=== PATIENT | female | born 1950 | race Caucasian/White ===

== ENCOUNTER 2019-12-14 10:17 | Outpatient (CLI) | payer MEDICARE, SELFPAY ==
--- NOTE | 2019-12-14 10:52 | XR_ITS ---
WS: [id number] DEXA (DUAL ENERGY X-RAY ABSORPTIOMETRY) Bone mineral density was performed using a [employer] machine. HISTORY: POST MENOPAUSAL COMPARISON: 05/08/2017 Lumbar spine BMD (L1-L4): 1.399 g/cm2 T score: 1.8 Z score: 3.3 Total hip BMD: Left: 1.053 g/cm2. T score: 0.4 Z score: 1.6 Right: 1.059 g/cm2. T score: 0.4 Z score: 1.7 10 year probability of a major osteoporotic fracture is 16%. Compared to the prior study from 05/08/2017. Lumbar spine bone mineral density has decrease by 0.6%. Bilateral hips bone mineral density has increased by 0.1%. XR/XR DEXA axial skeleton* [id number] IMPRESSION: Normal bone mineral density based upon the WHO classification for females. No i nterval change since the prior study.
== END 2019-12-14 10:18 | disposition home or self-care (01) ==
LOC: RADWPI 10:23
PROVIDERS: Family Provider Family Medicine; PCP Family Medicine; Visit Provider Family Medicine
DX: Z78.0 Asymptomatic menopausal state (principal)
CPT/HCPCS: 77080

== ENCOUNTER → 2019-12-17 13:15 | Outpatient (BNVA) | payer MEDICARE, SELFPAY | PROVIDERS: Family Provider Family Medicine; PCP Family Medicine; Visit Provider Internal Medicine Rheumatology | DX: M06.041 Rheumatoid arthritis without rheumatoid factor, right hand (principal); M06.042 Rheumatoid arthritis without rheumatoid factor, left hand; Z79.899 Other long term (current) drug therapy; M15.9 Polyosteoarthritis, unspecified; Z78.9 Other specified health status | CPT/HCPCS: 99214 ==

== ENCOUNTER → 2020-01-11 10:26 | Outpatient (BNVA) | payer MEDICARE, SELFPAY | PROVIDERS: Family Provider Family Medicine; PCP Family Medicine; Referring Provider Dermatology; Visit Provider Dermatology | DX: L71.9 Rosacea, unspecified (principal); L82.1 Other seborrheic keratosis; L94.0 Localized scleroderma [morphea]; L90.0 Lichen sclerosus et atrophicus; Z12.83 Encounter for screening for malignant neoplasm of skin; Z85.828 Personal history of other malignant neoplasm of skin | CPT/HCPCS: 99203; 99204 ==

== ENCOUNTER 2020-02-09 12:13 | Outpatient (RCR) | payer MEDICARE, SELFPAY | END 2020-02-15 23:59 | disposition home or self-care (01) | LOC: SPT 12:13 | PROVIDERS: PCP Family Medicine; Referring Provider Family Medicine; Visit Provider Family Medicine | DX: H81.13 Benign paroxysmal vertigo, bilateral (principal) | CPT/HCPCS: 95992; 97162 ==

== ENCOUNTER → 2020-04-19 13:59 | Outpatient (BNVA) | payer MEDICARE, SELFPAY | PROVIDERS: Family Provider Family Medicine; PCP Family Medicine; Visit Provider Internal Medicine Rheumatology | DX: M06.041 Rheumatoid arthritis without rheumatoid factor, right hand (principal); M06.042 Rheumatoid arthritis without rheumatoid factor, left hand; Z79.899 Other long term (current) drug therapy; M15.9 Polyosteoarthritis, unspecified; B02.30 Zoster ocular disease, unspecified; E06.3 Autoimmune thyroiditis | CPT/HCPCS: 99214 ==

== ENCOUNTER 2020-07-13 11:30 | Outpatient (CLI) | payer MEDICARE, SELFPAY ==
--- NOTE | 2020-07-13 11:32 | MM_ITS ---
WS: [id number] BILATERAL DIGITAL SCREENING MAMMOGRAPHY WITH CAD CLINICAL INFORMATION: SCREENING HISTORY: Screening mammogram. No current complaints. COMPARISON: TECHNIQUE: Bilateral CC and MLO views. FINDINGS: The breasts are composed of heterogeneous fibroglandular density tissue, which can limit the detectio n of small underlying mass lesions. No suspicious mass, asymmetry, calcifications, or architectural d istortion. No evidence of malignancy. MM/[place] [id number] IMPRESSION: BI-RADS: 1-Negative FOLLOW UP: 1 Year Follow-up Recommend return to annual screening mammography.
== END 2020-07-13 11:31 | disposition home or self-care (01) ==
LOC: RADSHAW 11:31
PROVIDERS: PCP Family Medicine; Visit Provider Family Medicine
DX: Z12.31 Encounter for screening mammogram for malignant neoplasm of breast (principal)
CPT/HCPCS: 77067

== ENCOUNTER → 2020-09-07 14:06 | Outpatient (BNVA) | payer MEDICARE, SELFPAY | PROVIDERS: PCP Family Medicine; Visit Provider Internal Medicine Rheumatology | DX: M06.041 Rheumatoid arthritis without rheumatoid factor, right hand (principal); M06.042 Rheumatoid arthritis without rheumatoid factor, left hand; Z79.899 Other long term (current) drug therapy; M15.4 Erosive (osteo)arthritis; E06.3 Autoimmune thyroiditis | CPT/HCPCS: 99214 ==

== ENCOUNTER → 2021-01-05 13:33 | Outpatient (BNVA) | payer MEDICARE, SELFPAY | PROVIDERS: PCP Family Medicine; Visit Provider Internal Medicine Rheumatology | DX: M06.041 Rheumatoid arthritis without rheumatoid factor, right hand (principal); M06.042 Rheumatoid arthritis without rheumatoid factor, left hand; Z79.899 Other long term (current) drug therapy; M15.9 Polyosteoarthritis, unspecified; E06.3 Autoimmune thyroiditis; Z86.19 Personal history of other infectious and parasitic diseases; Z71.89 Other specified counseling | CPT/HCPCS: 99214 ==

== ENCOUNTER 2021-04-05 12:37 | Outpatient (RCR) | payer MEDICARE, SELFPAY | END 2021-04-16 23:59 | disposition home or self-care (01) | LOC: SPT 12:37 | PROVIDERS: PCP Family Medicine; Visit Provider Family Medicine | DX: R42 Dizziness and giddiness (principal) | CPT/HCPCS: 95992; 97162 ==

== ENCOUNTER 2021-04-17 06:00 | Outpatient (RCR) | payer MEDICARE, SELFPAY | END 2021-05-16 23:59 | disposition home or self-care (01) | LOC: SPT 06:00 | PROVIDERS: PCP Family Medicine; Visit Provider Family Medicine | DX: H81.13 Benign paroxysmal vertigo, bilateral (principal) | CPT/HCPCS: 97112 ==

== ENCOUNTER 2021-05-17 06:00 | Outpatient (RCR) | payer MEDICARE, SELFPAY | END 2021-05-17 23:59 | disposition home or self-care (01) | LOC: SPT 06:00 | PROVIDERS: PCP Family Medicine; Visit Provider Family Medicine | DX: H81.13 Benign paroxysmal vertigo, bilateral (principal) | CPT/HCPCS: 97112 ==

== ENCOUNTER → 2021-05-30 11:03 | Outpatient (BNVA) | payer MEDICARE, SELFPAY | PROVIDERS: PCP Family Medicine; Visit Provider Internal Medicine Rheumatology | DX: M06.041 Rheumatoid arthritis without rheumatoid factor, right hand (principal); M06.042 Rheumatoid arthritis without rheumatoid factor, left hand; M15.4 Erosive (osteo)arthritis; E06.3 Autoimmune thyroiditis; L94.0 Localized scleroderma [morphea]; Z86.19 Personal history of other infectious and parasitic diseases; Z71.89 Other specified counseling | CPT/HCPCS: 99214 ==

== ENCOUNTER 2021-08-29 12:27 | Outpatient (CLI) | payer MEDICARE, SELFPAY ==
--- NOTE | 2021-08-29 12:33 | MM_ITS ---
WS: [id number] Bilateral screening 3D tomosynthesis digital mammogram, 08/29/2021 Clinical Data: SCREENING Comparison: 07/13/2020, 04/02/2019, 02/05/2018, 01/23/2017, 12/28/2015, 12/06/2015, 06/14/2014, 06/11/2013, 06/09/2012, 07/22/2008. Findings: The breast parenchymal pattern shows heterogeneous density No spiculated masses or clustered calcific ations are seen. There are no secondary signs of carcinoma. MM/[place] [id number] Impression: 1. Negative bilateral mammogram unchanged. 2. Recommend annual screening mammograms. BIRADS: 1-Negative FOLLOW UP: 1 Year Follow-up The CAD calibration checker was used.
== END 2021-08-29 12:28 | disposition home or self-care (01) ==
PROVIDERS: PCP Family Medicine; Visit Provider Family Medicine
DX: Z12.31 Encounter for screening mammogram for malignant neoplasm of breast (principal)
CPT/HCPCS: 77063; 77067

== ENCOUNTER → 2021-09-26 14:28 | Outpatient (BNVA) | payer MEDICARE, SELFPAY | PROVIDERS: PCP Family Medicine; Visit Provider Internal Medicine Rheumatology | DX: M06.041 Rheumatoid arthritis without rheumatoid factor, right hand (principal); M06.042 Rheumatoid arthritis without rheumatoid factor, left hand; M15.4 Erosive (osteo)arthritis; Z79.899 Other long term (current) drug therapy; E06.3 Autoimmune thyroiditis; Z86.19 Personal history of other infectious and parasitic diseases; Z71.89 Other specified counseling | CPT/HCPCS: 99214 ==

== ENCOUNTER → 2022-03-19 12:50 | Outpatient (BNVA) | payer MEDICARE, SELFPAY | PROVIDERS: PCP Family Medicine; Visit Provider Internal Medicine Rheumatology | DX: M06.041 Rheumatoid arthritis without rheumatoid factor, right hand (principal); M06.042 Rheumatoid arthritis without rheumatoid factor, left hand; Z79.899 Other long term (current) drug therapy; M15.4 Erosive (osteo)arthritis; Z71.89 Other specified counseling; E06.3 Autoimmune thyroiditis; L94.0 Localized scleroderma [morphea]; Z86.19 Personal history of other infectious and parasitic diseases | CPT/HCPCS: 99214 ==

== ENCOUNTER 2022-04-19 12:31 | Outpatient (CLI) | payer MEDICARE, SELFPAY ==
--- NOTE | 2022-04-19 12:41 | XR_ITS ---
WS: [id number] Bone mineral density performed on a [employer], 04/19/2022 Clinical data: SCREENING Comparison study: DEXA scan, 12/14/2019 Findings: The first 4 lumbar vertebral bodies demonstrated the bone mineral density of 1.526 g/cm2 for a young adult T score of 2.9. Measurement of the left hip reveals a bone mineral density of 1.031 g/cm2 with a young adult T score of 0.2. Measurement of the right hip reveals the bone mineral density of 1.052 g/cm2 for young adult T score of 0.4. The bone mineral density of the lumbar spine shows an increase of 9.1%. The bone mineral density of t he hips shows a decrease of -1.3%. XR/XR DEXA axial skeleton* [id number] Impression: 1. Increasing bone mineral density of the lumbar spine. 2. Slight decrease in bone mineral density of the hips.
== END 2022-04-19 12:32 | disposition home or self-care (01) ==
LOC: RAD 12:33
PROVIDERS: PCP Family Medicine; Visit Provider Obstetrics & Gynecology
DX: Z78.0 Asymptomatic menopausal state (principal); M85.88 Other specified disorders of bone density and structure, other site
CPT/HCPCS: 77080

== ENCOUNTER → 2022-07-30 10:59 | Outpatient (BNVA) | payer MEDICARE, SELFPAY | PROVIDERS: PCP Family Medicine; Visit Provider Internal Medicine Rheumatology | DX: M06.041 Rheumatoid arthritis without rheumatoid factor, right hand (principal); M06.042 Rheumatoid arthritis without rheumatoid factor, left hand; M15.4 Erosive (osteo)arthritis; E06.3 Autoimmune thyroiditis; E03.9 Hypothyroidism, unspecified; L94.0 Localized scleroderma [morphea]; N39.0 Urinary tract infection, site not specified | CPT/HCPCS: 99214 ==

== ENCOUNTER 2022-12-12 14:01 | Emergency (ER) | payer MEDICARE, SELFPAY ==
--- NOTE | 2022-12-12 14:03 | XR_ITS ---
WS: [id number] Exam: XR chest 1V portable [id number] Date/Time of Exam: 12/12/2022 2:16 PM Reason For Exam: cp Comparison 05/20/2018. The lungs are fully expanded and clear. Normal cardiomediastinal silhouette. 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 XR/XR chest 1V portable [id number] IMPRESSION: 1. No acute cardiopulmonary process.
== END 2022-12-12 14:15 | disposition home or self-care (01) ==
LOC: ER 14:12
PROVIDERS: Emergency Provider Family Medicine; PCP Family Medicine
DX: M06.042 Rheumatoid arthritis without rheumatoid factor, left hand (principal); M06.041 Rheumatoid arthritis without rheumatoid factor, right hand; M15.4 Erosive (osteo)arthritis; I48.0 Paroxysmal atrial fibrillation; Z79.899 Other long term (current) drug therapy; Z79.82 Long term (current) use of aspirin; Z79.890 Hormone replacement therapy; Z79.52 Long term (current) use of systemic steroids; R07.9 Chest pain, unspecified
CPT/HCPCS: 71045; 99214; 99285

== ENCOUNTER → 2023-01-01 13:51 | Outpatient (BNVA) | payer MEDICARE, SELFPAY | PROVIDERS: PCP Family Medicine; Visit Provider Dermatology | DX: L72.0 Epidermal cyst (principal); L71.8 Other rosacea; Z85.828 Personal history of other malignant neoplasm of skin; L57.0 Actinic keratosis; L81.4 Other melanin hyperpigmentation; L82.1 Other seborrheic keratosis; D22.72 Melanocytic nevi of left lower limb, including hip; L90.0 Lichen sclerosus et atrophicus; L84 Corns and callosities | CPT/HCPCS: 17000; 17003; 99214 ==

== ENCOUNTER → 2023-03-06 14:14 | Outpatient (BNVA) | payer MEDICARE, SELFPAY | PROVIDERS: PCP Family Medicine; Visit Provider Internal Medicine Rheumatology | DX: M06.041 Rheumatoid arthritis without rheumatoid factor, right hand (principal); M06.042 Rheumatoid arthritis without rheumatoid factor, left hand; M15.4 Erosive (osteo)arthritis; Z71.89 Other specified counseling; Z79.899 Other long term (current) drug therapy; R00.0 Tachycardia, unspecified | CPT/HCPCS: 99214 ==

== ENCOUNTER 2023-03-27 13:06 | Outpatient (CLI) | payer MEDICARE, SELFPAY ==
--- NOTE | 2023-03-27 13:21 | MM_ITS ---
WS: [id number] Bilateral screening 3D tomosynthesis digital mammogram, 03/27/2023 Clinical Data: SCREENING Comparison: 08/29/2021, 07/13/2020, 07/13/2020, 04/02/2019, 02/05/2018, 01/23/2017, 12/06/2015, 06/14/2014, 06/11/2013, 07/10/2011, 10/19/2008, 08/26/2007, 08/26/2007. Findings: The breast parenchymal pattern shows fibroglandular tissue. No spiculated masses or clustered calcifi cations are seen. There are no secondary signs of carcinoma. Monitor leads are on the chest wall. Impression: 1. Negative bilateral mammogram unchanged. 2. Recommend annual screening mammograms. MM/[place] [id number] BIRADS: 1-Negative FOLLOW UP: 1 Year Follow-up The CAD bill checker was used.
== END 2023-03-27 13:07 | disposition home or self-care (01) ==
PROVIDERS: PCP Family Medicine; Visit Provider Family Medicine
DX: Z12.31 Encounter for screening mammogram for malignant neoplasm of breast (principal)
CPT/HCPCS: 77063; 77067

== ENCOUNTER → 2023-07-03 14:20 | Outpatient (BNVA) | payer MEDICARE, SELFPAY | PROVIDERS: PCP Family Medicine; Visit Provider Internal Medicine Rheumatology | DX: M06.041 Rheumatoid arthritis without rheumatoid factor, right hand (principal); M06.042 Rheumatoid arthritis without rheumatoid factor, left hand; M15.4 Erosive (osteo)arthritis; Z71.89 Other specified counseling; Z79.899 Other long term (current) drug therapy; R00.0 Tachycardia, unspecified | CPT/HCPCS: 99214 ==

== ENCOUNTER → 2023-10-14 14:22 | Outpatient (BNVA) | payer MEDICARE, SELFPAY | PROVIDERS: PCP Family Medicine; Visit Provider Internal Medicine Rheumatology | DX: M06.041 Rheumatoid arthritis without rheumatoid factor, right hand (principal); M06.042 Rheumatoid arthritis without rheumatoid factor, left hand; Z79.899 Other long term (current) drug therapy; M15.4 Erosive (osteo)arthritis; Z71.89 Other specified counseling; R00.0 Tachycardia, unspecified | CPT/HCPCS: 99214 ==

== ENCOUNTER → 2024-01-16 08:48 | Outpatient (BNVA) | payer MEDICARE, SELFPAY | PROVIDERS: PCP Family Medicine; Visit Provider Nurse Practitioner Family | DX: L90.0 Lichen sclerosus et atrophicus (principal); L71.8 Other rosacea; L81.4 Other melanin hyperpigmentation; L82.1 Other seborrheic keratosis; D22.72 Melanocytic nevi of left lower limb, including hip; L84 Corns and callosities; L94.0 Localized scleroderma [morphea]; Z85.828 Personal history of other malignant neoplasm of skin | CPT/HCPCS: 99214 ==

== ENCOUNTER → 2024-02-24 14:10 | Outpatient (BNVA) | payer MEDICARE, SELFPAY | PROVIDERS: PCP Family Medicine; Visit Provider Internal Medicine Rheumatology | DX: M06.041 Rheumatoid arthritis without rheumatoid factor, right hand (principal); M06.042 Rheumatoid arthritis without rheumatoid factor, left hand; M15.4 Erosive (osteo)arthritis; Z71.89 Other specified counseling; Z79.899 Other long term (current) drug therapy | CPT/HCPCS: 99214 ==

== ENCOUNTER → 2024-06-22 13:30 | Outpatient (BNVA) | payer MEDICARE, SELFPAY | PROVIDERS: PCP Family Medicine; Visit Provider Internal Medicine Rheumatology | DX: M06.041 Rheumatoid arthritis without rheumatoid factor, right hand (principal); M06.042 Rheumatoid arthritis without rheumatoid factor, left hand; Z79.899 Other long term (current) drug therapy; M15.4 Erosive (osteo)arthritis; Z71.89 Other specified counseling | CPT/HCPCS: 99214 ==

== ENCOUNTER → 2024-09-28 14:49 | Outpatient (BNVA) | payer MEDICARE, SELFPAY | PROVIDERS: PCP Family Medicine; Visit Provider Internal Medicine Rheumatology | DX: M06.041 Rheumatoid arthritis without rheumatoid factor, right hand (principal); M06.042 Rheumatoid arthritis without rheumatoid factor, left hand; M15.4 Erosive (osteo)arthritis; Z71.89 Other specified counseling; Z79.899 Other long term (current) drug therapy | CPT/HCPCS: 99214 ==

== ENCOUNTER 2024-12-02 08:15 | Outpatient (CLI) | payer MEDICARE, SELFPAY ==
--- NOTE | 2024-12-02 08:16 | MM_ITS ---
WS: [id number] BILATERAL SCREENING DIGITAL TOMOSYNTHESIS MAMMOGRAM WITH CAD HISTORY: SCREENING COMPARISON: 03/27/2023, 08/29/2021 and 07/13/2020 Bilateral CC and MLO views with tomosynthesis and synthetic mammography submitted. Computer aided detection analyzed. Breast composition: The breasts are heterogeneously dense, which may obscure small masses. No suspicious masses, microcalcifications or architectural distortion. Asymmetries within each breast are stable. No suspicious grouping of calcifications. MM/MM scr tomosynthesis [id number] IMPRESSION: BI-RADS: 2 - Benign FOLLOW UP: 1 Year Follow-up
== END 2024-12-02 08:16 | disposition home or self-care (01) ==
PROVIDERS: PCP Family Medicine; Visit Provider Family Medicine
DX: Z12.31 Encounter for screening mammogram for malignant neoplasm of breast (principal)
CPT/HCPCS: 77063; 77067

== ENCOUNTER → 2025-02-02 14:35 | Outpatient (BNVA) | payer MEDICARE, SELFPAY | PROVIDERS: PCP Family Medicine; Visit Provider Internal Medicine Rheumatology | DX: M06.041 Rheumatoid arthritis without rheumatoid factor, right hand (principal); M06.042 Rheumatoid arthritis without rheumatoid factor, left hand; M15.4 Erosive (osteo)arthritis; Z71.85 Encounter for immunization safety counseling; Z79.899 Other long term (current) drug therapy | CPT/HCPCS: 99214 ==

== ENCOUNTER 2025-04-18 10:22 | Observation (INO) | payer MEDICARE, SELFPAY ==
[2025-04-18] VITALS (11 sets, daily range): BP systolic 93–158; BP diastolic 58–102; PULSE 77–129; RESP 14–24; TEMP 36.8–37.4; O2SAT 92–96; BMI 25.7; BMI 25.4
--- OUTSIDE RECORDS SUMMARY | 2025-04-18 10:26 | XMS_ITS | Encounter Summary ---
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 1 [place] [address] PCP - General Family Practice 11/07/20 documented as of this encounter
--- OUTSIDE RECORDS SUMMARY | 2025-04-18 10:26 | XMS_ITS | Encounter Summary ---
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 Social History Tobacco Use Types Packs/Day Years Used Date Smoking Tobacco: Never Assessed Comments Unknown Sex and Gender Information Value Date Recorded Sex Assigned at Not on file 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
--- OUTSIDE RECORDS SUMMARY | 2025-04-18 10:26 | XMS_ITS | Encounter Summary ---
Author Organization [facility] Address [address] [place] [address] Care Team Providers Care Technical Manager Name Role Phone Rustam Trammell MD Primary Care Provider [phone] Encounter Details Date Type Department Care Team (Latest Contact Info) Description 09/20/1998 Outpatient Historical [facility] [place] [address] [place] [address] Tera Ness MD NO ADDRESS ON FILE Circumscribe scleroderma (Primary Dx) Social History Tobacco Use Types Packs/Day Years Used Date Smoking Tobacco: Never Assessed Comments Unknown Sex and Gender Information Value Date Recorded Sex Assigned at Not on file 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
--- OUTSIDE RECORDS SUMMARY | 2025-04-18 10:26 | XMS_ITS | Encounter Summary ---
Author Organization [facility] Address [address] [place] [address] Care Team Providers Care Wellness Spa Manager Name Role Phone Rustam Trammell MD Primary Care Provider [phone] Encounter Details Date Type Department Care Team (Latest Contact Info) Description 12/08/2002 Outpatient Historical [facility] [place] [address] [place] [address] Tera Ness MD NO ADDRESS ON FILE Gynecologic examination (Primary Dx); SCREENING MAL NEOP-RECTUM Social History Tobacco Use Types Packs/Day Years Used Date Smoking Tobacco: Never Assessed Comments Unknown Sex and Gender Information Value Date Recorded Sex Assigned at Not on file 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
--- OUTSIDE RECORDS SUMMARY | 2025-04-18 10:26 | XMS_ITS | Continuity of Care Document ---
Author Organization MICHELL - Renny Hernandez [facility] Amaury, LMason, [facility] ([facility]) Address [address] [place] [address] Care Team Providers Care Gas Line Servicer Name Role Phone TRAMMELLNAV JulioON Primary Care Provider [phone] TOMÁS HILL Referring Provider [phone] MARIO MAYER Referring Provider [phone] Assessment No assessment recorded. Plan of Treatment Reminders Order Date Submit Date Provider Last Modified By Organization Details Last Modified Time Details Appointments ACUTE VISIT 025 09:20AM WALK-IN Not available Not available Not available Lab None recorde d. Referral None recorde d. Procedures None recorde d. Surgeries None recorde d. Imaging None recorde d. Medication Orders None recorde d. Patient TargetsNo targets recorded. Patient Instructions Encounter Date Encounter Id Patient Instructions Last Modified By Organization Details Last Modified Time 04/18/2025 [id number] As she describes it feels like it is going to explode when she bends forward- I am going to send her to ER for further eval [email or web address] Not available 04/18/2025 11:18:14 Reason for Referral None Reported. Results Created Date Observation Date Name Description Value Unit Range Abnormal Flag Note LastModifiedBy Organization Detail LastModifiedTime 03/24/2003/24/2025 CBC WBC 6.2 x10 4.0-10 .5 Not Available [facility] [address], [place], [address], 03/24/2025 14:19:16 03/24/2003/24/2025 CBC RBC 4.49 x10 3.50-5 .50 Not Available [facility] [address] [facility] 1, [place], [address], 03/24/2025 14:19:16 03/24/2003/24/2025 CBC HGB 14.1 g/dL 12.0-1 6.0 Not Available [facility] [address] [facility] [address] [facility], [place], [address], 03/24/2025 14:19:16 03/24/2003/24/2025 CBC HCT 43.6 % 37.0-4 7.0 Not Available [facility] [address] [facility] [address] 1, [place], [address], 03/24/2025 14:19:16 03/24/2003/24/2025 CBC MCV 97.0 fL 80.0-9 9.9 Not Available [facility] [address] [facility] [address] 1, [place], [address], 03/24/2025 14:19:16 03/24/2003/24/2025 CBC MCH 31.4 pg 27.0-3 2.0 Not Available [facility] [address] [facility] [address], [place], [address], 03/24/2025 14:19:16 03/24/2003/24/2025 CBC MCHC 32.4 g/dL 32.0-3 6.0 Not Available [facility] [address] [facility] 1, [place], [address], 03/24/2025 14:19:16 03/24/2003/24/2025 CBC RDW 14.9 % 11.5-1 4.5 high Not Available [facility] [address] [facility] 1, [place], [address], 03/24/2025 14:19:16 03/24/2003/24/2025 CBC plt 277.1 x10 140.0- 451.0 Not Available [facility] [address] [facility] 1, [place], [address], 03/24/2025 14:19:16 03/24/20 25 03/24/2025 CBC lymphocytes % 27.8 % 20.0-5 0.0 Not Available [facility] [address] [facility], [place], [address], 03/24/2025 14:19:16 03/24/2003/24/2025 CBC granulcytes % 59.3 % 30.0-7 0.0 Not Available [facility] [address] [facility] 1, [place], [address], 03/24/2025 14:19:16 03/24/2003/24/2025 CBC monocytes % 7.8 % 2.0-16 .0 Not Available [facility] [address] [facility] 1, [place], [address], 03/24/2025 14:19:16 03/24/2003/24/2025 CBC granulcytes# 3.7 x10 Not Arabella ilable [facility] [address] [facility] 1, [place], [address], 03/24/2025 14:19:16 03/24/2003/24/2025 CBC lymphocytes # 1.7 x10 Not Available [facility] [address] [facility] 1, [place], [address], 03/24/2025 14:19:16 03/24/2003/24/2025 CBC monocytes # 0.5 x10 Not Avai lable [facility] [address] [facility] 1, [place], [address], 03/24/2025 14:19:16 03/24/20 25 03/24/2025 LIVER PANEL (FEMA LE) total protein 7.6 g/dL 6.0-8. 5 Not Available [facility] [address] [facility] 1, [place], [address], 03/24/2025 14:20:34 03/24/20 25 03/24/2025 LIVER PANEL (FEMA LE) total bilirubin 0.9 mg/dL 0.2-1. 3 Not Available [facility] [address] [facility], [place], [address], 03/24/2025 14:20:34 03/24/20 25 03/24/2025 LIVER PANEL (FEMA LE) conj. bilirubin (direct) 0.00 mg/dL 0.00-0 .40 Not Available [facility] [address] [facility], [place], [address], 03/24/2025 14:20:34 03/24/20 25 03/24/2025 LIVER PANEL (FEMA LE) albumin 4.4 g/dL 3.5-5. 5 Not Available [facility] [address] [facility] [address] [facility] [facility], [place], [address], 03/24/2025 14:20:34 03/24/20 25 03/24/2025 LIVER PANEL (FEMA LE) AST (SGOT) 64.0 U/L 0.0-46 .0 high Not Available [facility] [address] [facility] [address] [facility] 1, [place], [address], 03/24/2025 14:20:34 03/24/20 25 03/24/2025 LIVER PANEL (FEMA LE) altv (SGPT) 71.0 U/L 13.0-6 9.0 abnormal Not Available [facility] [address] [facility], [place], [address], 03/24/2025 14:20:34 03/24/20 25 03/24/2025 LIVER PANEL (FEMA LE) ALP phos 77.0 U/L 30.0-1 40.0 normal Not Available [facility] [address] [facility] [address], [address], 03/24/2025 14:20:34 03/24/20 25 03/25/2025 C-RENU CTIVE PROTE IN C-reactive protein <3.0 mg/L <8.0 normal Not Available [facility] [address] [place], [address], 03/25/2025 07:45:50 03/24/2003/24/2025 ESR (eryt hrocy te sedim entat ion rate) , blood SedRate 21 Not Available [facility] ([facility]) [address] [place], [address], 03/24/2025 13:08:57 03/24/20 25 03/24/2025 creat inine , blood creatinine 0.81 mg/dL 0.4-1. 5 normal Not Available [facility] ([facility]) [address] [place], [address], 03/24/2025 13:08:54 03/25/2003/25/2025 XR, chest , 2 view No observ ation record ed. [facility] ([facility]) [address] [place], [address], 03/25/2025 13:01:27 03/26/2003/25/2025 imagi ng/di agnos tic resul t No observ ation record ed. [facility] [address] [place], [address], 03/29/2025 15:17:06 Result Notes None recorded. Problems Name Problem SNOMED Code Status Onset Date Resolution Date Notes Provider Name and Address Organization Details Recorded Time Hyperlip idemia 51593379 Completed 201506/20/2015 Hyperlip idemia - Status is Inactive ; 06/20/19 16 1:22PM by Albertina Espinoza LPN, Annotati on/Adden dum; Promoted ; acuity set as *; Not Available [facility] 3 03:16:00 Hyperten sive disorder 84916822 Completed 201506/20/2015 Hyperten argelia - Status is Inactive ; 06/20/19 16 1:22PM by Albertina Espinoza LPN, Annotati on/Adden dum; Promoted ; acuity set as *; Not Available [facility] 3 03:16:03 Atrial fibrilla tion 31095207 Completed 202103/01/2022 Atrial Fibrilla tion - Status is Inactive ; 03/01/20 2:36PM by Inga Trammell PA-C, Annotati on/Adden dum; Promoted ; acuity set as *; ATRIAL FIBRILLA TION - Status is Inactive ; Recorded 03/01/20 22 2:36PM by Inga Trammell PA-C, Annotati on/Adden dum; Promoted ; acuity set as *; Not Available [facility] 3 03:16:03 Tobacco dependen ce syndrome 87995724 Completed 202103/01/2022 Tobacco use - Status is Inactive ; Recorded 03/01/20 22 2:58PM by Inga Trammell PA-C, Annotati on/Adden dum; Promoted ; acuity set as *; Not Available [facility] 3 03:16:03 Morphea 664405539 Active 2022 MORPHEA; Recorded 07/13/19 23 12:08PM by Albertina Espinoza LPN, Office Visit; Promoted ; acuity set as *; Not Available [facility] 3 03:16:02 Goiter 6431542 Active 2022 goiter; goiter at age 9 or 10 began thyroid medicati on age 14; ALBERTINA abdullahi [facility] 5 12:10:06 Hypothyr oidism 25736201 Active 2022 ALBERTINA abdullahi [facility] 3 10:44:41 Lichen sclerosu s 149702776 Active 2022 ALBERTINA ALEXIS bradly [facility] 3 10:44:50 Rheumato id arthriti s 28807631 Active 2022 ALBERTINA ALEXIS bradly [facility] 3 10:44:58 Supraven tricular tachycar akshat 4088980 Active 2022 ALBERTINA abdullahi [facility] 10:45:05 History of herpes zoster 18814242768 9108 Active 2022 Sim Trammell MD [address] [place] [address], [address] [facility] [place] 11:33:34 Paroxysm al atrial fibrilla tion 440378480 Active 2022 ALBERTINA abdullahi [facility] 5 12:10:23 Chronic kidney disease stage 3A 997275199 Active 2024 ALBERTINA abdullahi [facility] 5 12:42:15 Problem Notes None recorded. Procedures Surgical History Date Name Laterality Status Provider Name and Address Organization Details Recorded Time repair of femoral hernia completed ALBERTINA ALEXIS [facility] 11/29/2022 10:48:22 Carpal tunnel surgery completed ALBERTINA ESPINOZA [facility] 11/29/2022 10:48:33 Imaging Results None recorded. Procedure Notes None recorded. Medical Equipment None Reported. Allergies No known drug allergies Medications Name Sig Start Date Stop Date Status Note LastModified by Organization Details LastModified Time amoxicill in 500 mg capsule 11/03 completed Not Available Not Available Not Available prednison e 10 mg tablet TAKE 1 TABLET BY MOUTH EVERY DAY FOR 5-7 DAYS NEEDED FOR JOINT PAIN FLARE active Not Available Not Available No t Available doxycycli ne hyclate 100 mg capsule TAKE 1 CAPSULE BY MOUTH TWICE DAILY FOR 7 DAYS 05/11 completed Not Available Not Available Not Available sulfasala zine 500 mg tablet TAKE 1 TABLET BY MOUTH EVERY DAY for 7 days THEN stay ON ONE tablet TWICE DAILY. take with food (meal/sn ack) 08/18 completed Not Available Not Available Not Available prednison e 20 mg tablet TAKE 2 TABLETS BY MOUTH EVERY DAY FOR FIVE DAYS 05/11 completed Not Available Not Available Not Available clobetaso l 0.05 % topical cream every other day 11/03 completed Alfredo; Recorded 03/01/20 22 7:24AM by Leila Yen LPN, Office Visit; Mail Order Quantity : 3 Tube; Mail Order Days: 90 Days; Refill Quantity : 0; Not Available Not Available Not Available Noritate 1 % topical cream APPLY TOPICALL Y EVERY DAY 03/25 completed Not Available Not Available Not Available valacyclo vir 500 mg tablet two times daily 08/18 completed Not Available Not Available Not Available triamcino lone acetonide 0.1 % topical cream two times daily prn 03/25 completed Not Available Not Available Not Available prednisol one acetate 1 % eye drops,edilson pension 11/29 completed Not Available Not Available Not Available methotrex ate sodium 2.5 mg tablet TAKE 8 TABLETS ON THE SAME DAY ONCE A WEEK. active Not Available Not Available No t Available meclizine 25 mg tablet TAKE 1 TABLET BY MOUTH THREE TIMES DAILY FOR 7 DAYS 06/02 completed Not Available Not Available Not Available tacrolimu s 0.1 % topical ointment AAA twice weekly 2020 active Not Available Not Available Not Avai lable levothyro xine 150 mcg tablet TAKE 1 TABLET BY MOUTH EVERY DAY active Not Available Not Available No t Available flecainid e 50 mg tablet TAKE 1 TABLET BY MOUTH THREE TIMES DAILY active Not Available Not Available No t Available omeprazol e 20 mg capsule,d elayed release take 1 capsule BY MOUTH 30-60 MINUTES BEFORE BREAKFAS T AND ONE CAPSULE 30-60 MINUTES BEFORE DINNER active Not Available Not Available No t Available folic acid 1 mg tablet TAKE 2 TABLETS BY MOUTH EVERY DAY active Not Available Not Available No t Available mupirocin 2 % topical ointment APPLY TO THE AFFECTED AREA(S) topicall y TWICE DAILY UNTIL HEALED 03/25 completed Not Available Not Available Not Available metoprolo l succinate ER 25 mg tablet,ex tended release 24 hr take 1/2 tablet BY MOUTH TWICE DAILY active Not Available Not Available No t Available azelastin e 137 mcg (0.1 %) nasal spray USE 1 SPRAY IN EACH NOSTRIL TWICE DAILY 08/18 completed Not Available Not Available Not Available hydroxych loroquine 200 mg tablet 03/25 completed Not Available Not Available Not Available estradiol 0.01% (0.1 mg/gram) vaginal cream APPLY SMALL AMOUNT VAGINALL Y TWICE WEEKLY active Not Available Not Available No t Available levofloxa lori 750 mg tablet TAKE 1 TABLET BY MOUTH EVERY DAY 07/23 completed Not Available Not Available Not Available fluticaso ne propionat e 50 mcg/actua tion nasal spray,edilson pension USE 1 SPRAY IN EACH NOSTRIL TWICE DAILY FOR 30 DAYS 08/18 completed Not Available Not Available Not Available metoclopr amide 10 mg tablet 04/30 completed Not Available Not Available Not Available amoxicill in 875 mg-potass ium clavulana te 125 mg tablet Take 1 tablet every 12 hours by oral route for 7 days. 03/20 completed Not Available Not Available Not Available Restasis 0.05 % eye drops in a dropperet te 04/30 completed Not Available Not Available Not Available metoprolo l tartrate 25 mg tablet two times daily 11/03 completed Not Available Not Available Not Available Antacid 200 mg (as calcium carbonate 500 mg) chewable tablet CHEW ONE TABLET BY MOUTH THREE TIMES DAILY WITH MEALS active Not Available Not Available No t Available estradiol twice weekly 04/29 completed 0; Recorded 07/13/19 23 12:09PM by Albertina Espinoza LPN, Office Visit; Not Available Not Available Not Available folic acid daily 04/30 completed 0; Recorded 07/13/19 23 12:09PM by Albertina Espinoza LPN, Office Visit; Not Available Not Available Not Available methotrex ate weekly 04/[address] Dalton; 0; Recorded 07/13/19 12:09PM by Albertina Espinoza LPN, Office Visit; Not Available Not Available Not Available Noritate daily 10/01 completed Recorded 03/01/20 7:24AM by Leila Yen LPN, Office Visit; Refill Quantity : 30; Gram; Not Available Not Available Not Available flecainid e two times daily 04/30 completed 0; Recorded 07/13/19 12:09PM by Albertina Espinoza LPN, Office Visit; Not Available Not Available Not Available Vitamin D 1 daily active Not Available Not Av ailable Not Available [facility] Levothyro xine Sodium daily 04/29 completed 436; Recorded 07/05/19 2:53PM by Albertina Espinoza LPN (Authori seven through Sim Trammell MD), Annotati on/Adden dum; Mail Order Quantity : 75 Tablet; Refill Quantity : 0; Not Available Not Available Not Available Vitamin B12 1 daily active Not Available Not Available Not Available peg 3350-elec trolytes 236 gram-22.7 4 gram-6.74 gram-5.86 gram solution 04/30 completed Not Available Not Available Not Available Restasis MultiDose 0.05 % eye drops 04/30 completed Not Available Not Available Not Available Vitals Date Recorded Body height Body mass index (BMI) Body weight Heart rate Oxygen saturation Oxygen saturation in Arterial blood by Pulse oximetry Respiratory rate Body temperature Systolic And Diastolic Provider Name and Address Organization Details Last Updated DateTime 5 166.37 cm 26.1 kg/m2 08702.1 9 g 84 /min 97 % 97 % 18 /min 98 [degF] 128/86 mm[Hg] STEPHANIA DEGROOT [facility] 5 10:37:39 Social History Question Answer Notes LastModified by Organizat ion Details LastModified Time Tobacco Smoking Status Never Smoker ALBERTINA abdullahi [facility] 11/29/2022 10:47:51 What Was The Date Of Your Most Recent Tobacco Screening? 04/18/2025 [email or web address] Information not available 04/18/2025 Sex: Unknown Functional Status Question Answer Note LastModified by Organizat ion Details LastModified Time Do you use any illicit or recreational drugs? No [email or web address] Information not available 11/29/2022 Do you or have you ever used any other forms of tobacco or nicotine? No [email or web address] Information not available 04/30/2023 What is your level of alcohol consumption? None [email or web address] Information not available 11/29/2022 Do you or have you ever used any nicotine-free cigarettes, vape, or chewing tobacco? No [email or web address] Information not available 08/18/2024 Mental Status None recorded. Family History Relationship Description Onset Age of this Age Resolved Age Notes LastModified by Organization Details LastModified Time Father Apical hypertrophic cardiomyopat hy [email or web address] Not available 11/29 10:46:44 Mother Malignant neoplasm of colon [email or web address] Not available 11/29 10:46:53 Brother Autoimmune thyroiditis [email or web address] Not available 10:47:14 Brother Malignant neoplasm of colon [email or web address] Not available 11/29 10:49:54 Sister Autoimmune thyroiditis [email or web address] Not available 10:47:14 Medical History No medical history recorded. Gynecological HistoryNo gynecological history recorded. Obstetrics History GPAL:G 0 P 0 0 0 0 Immunizations Vaccine Type Date Status Note Provider Nam e and Address Organization Details Recorded Time Influenza, recombinant, quadrivalent, PF 0 completed ALBERTINA abdullahi [facility] 11/29/2022 10:45:32 Influenza, high-dose, quadrivalent, PF 2 completed ALBERTINA abdullahi [facility] 11/29/2022 10:45:32 COVID-19, mRNA, LNP-S, PF, 100 mcg/0.5mL dose or 50 mcg/0.25mL dose 1 completed ALBERTINA abdullahi [facility] 11/29/2022 10:45:32 COVID-19, mRNA, LNP-S, PF, 100 mcg/0.5mL dose or 50 mcg/0.25mL dose 1 completed ALBERTINA abdullahi, [facility] 11/29/2022 10:45:32 COVID-19, mRNA, LNP-S, PF, 100 mcg/0.5mL dose or 50 mcg/0.25mL dose 2 completed ALBERTINA abdullahi, [facility] 11/29/2022 10:45:32 COVID-19, mRNA, LNP-S, bivalent, PF, 50 mcg/0.5 mL or 25mcg/0.25 mL dose 2 completed ALBERTINA abdullahi, [facility] 11/29/2022 10:45:32 Tdap 7 completed ALBERTINA abdullahi, [facility] 11/29/2022 10:45:32 Pneumococcal conjugate PCV 13 0 completed ALBERTINA abdullahi, [facility] 11/29/2022 10:45:32 zoster recombinant 3 completed ALBERTINA abdullahi, [facility] 11/29/2022 14:01:35 Influenza, split virus, trivalent, preservative 8 completed Not Available [facility] 07/23/2023 14:09:00 zoster recombinant 3 completed Sim Trammell MD [address] [place] [address], [address], [facility] 03/20/2023 10:21:03 Past Encounters Encounter ID Performer Location Encounter Start Date Encounter Closed Date Diagnosis/Indication Diagnosis SNOMED-CT Code Diagnosis ICD10 Code Diagnosis IMO Codes Diagnosis Note [id number] Sim Trammell MD [facility] ([facility]) [address] [place] [address] 03/24/2025 13:05:16 03/25/2025 09:34:12 Long-term current use of drug therapy 381662197 Z79.863 0581973 [id number] Sim Trammell MD [facility] ([facility]) [address] [place] [address] 03/25/2025 12:28:41 03/25/2025 13:01:48 Chronic kidney disease stage 3A 434183133 N18.31 86852721 added for historical accuracy not addressed today but is an active problem. Persistent cough 3796224 02 R05.3 307292 resume your allergy meds. has now had these sx's start early fall for 3 straight years. f/u if fever wheezing or symptoms worsening. [id number] DIANELYS AMOS APRN [facility] ([facility]) [address] [place] [address] 04/18/2025 10:22:36 04/18/2025 11:18:26 Neck pain 58419440 M54.2 06421 neck pressure Health Concerns Section Related Observation LastModified by Organization Detai ls LastModified Time None Recorded Concern Status LastModified by Organization Details LastModified Time None Recorded Payers Encounter Date Sequence Insurance Name Policy Number Policy Adam Covered Member ID Adam Member ID Guarantor Name 04/18/2025 1 [employer] (MEDICARE REPLACEMENT/ ADVANTAGE - PPO) Colleen Longo [id number] Colleen Longo Notes Date Note Type Note Provider Name and Address Organization Details Recorded Time 04/18/2025 text/html walk-inPatient stated that yesterday around 4pm she started having pressure in her anterior neck, denies injury. Pressure is increased when she bends forward. Pain in her ears DIANELYS AMOS APRN [address] [place], [address], [facility], Joanne 04/18/2025 11:18:24 OBGyn Episode No OBEpisode recorded.
--- OUTSIDE RECORDS SUMMARY | 2025-04-18 10:26 | XMS_ITS | Encounter Summary ---
Author Organization [facility] Address [address] [place] [address] Care Team Providers Care Receptionist Secretary Name Role Phone Rustam Trammell MD Primary Care Provider [phone] Encounter Details Date Type Department Care Team (Late st Contact Info) Description 12/08/2002 Outpatient Historical [facility] [place] [address] [place] [address] Tera Ness MD NO ADDRESS ON FILE Social History Tobacco Use Types Packs/Day Years Used Date Smoking Tobacco: Never Assessed Comments Unknown Sex and Gender Information Value Date Recorded Sex Assigned at Not on file 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
--- OUTSIDE RECORDS SUMMARY | 2025-04-18 10:26 | XMS_ITS | Encounter Summary ---
Author Organization [facility] Address [address] [place] [address] Care Team Providers Care Power Generation Engineer Name Role Phone Rustam Trammell MD Primary Care Provider [phone] Encounter Details Date Type Department Care Team (Latest Contact Info) Description 01/13/2002 Outpatient Historical [facility] [place] [address] [place] [address] Tera Ness MD NO ADDRESS ON FILE Gynecologic examination (Primary Dx); Circumscribe scleroderma; FEMALE CLIMACTERIC STATE Social History Tobacco Use Types Packs/Day Years Used Date Smoking Tobacco: Never Assessed Comments Unknown Sex and Gender Information Value Date Recorded Sex Assigned at Not on file 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 Gender Identity Not on file Sexual Orientation Not on file documented as of this encounter Plan of Treatment Not on file documented as of this encounter Visit Diagnoses Diagnosis Gynecologic examination- Primary Gynecological examination Circumscribe scleroderma Circumscribed scleroderma Symptomatic menopausal or female climacteric states documented in this encounter Care Teams Power Generation Engineer Relationship Specialty Start Date End Date Rustam Trammell MD [address] [facility] 1 [place] [phone] PCP - General Family Practice 11/07/20 documented as of this encounter
--- OUTSIDE RECORDS SUMMARY | 2025-04-18 10:26 | XMS_ITS | Encounter Summary ---
Author Organization [facility] Address [address] [place] [address] Care Team Providers Care Workforce Advisor Name Role Phone Rustam Trammell MD Primary Care Provider [phone] Encounter Details Date Type Department Care Team (Latest Contact Info) Description 03/23/2004 Outpatient Historical [facility] E COMMERCE DIRECTOR 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
--- OUTSIDE RECORDS SUMMARY | 2025-04-18 10:26 | XMS_ITS | Encounter Summary ---
Author Organization [facility] Address [address] [place] [address] Care Team Providers Care Sand Cutting Machine Operator Name Role Phone Rustam Trammell MD Primary Care Provider [phone] Encounter Details Date Type Department Care Team (Latest Contact Info) Description 10/05/1999 Outpatient Historical [facility] O[facility] [place] [address] [place] [address] Tera Ness MD NO ADDRESS ON FILE Gynecologic examination (Primary Dx); Vaginitis and vulvovaginitis, unspecified Social History Tobacco Use Types Packs/Day Years Used Date Smoking Tobacco: Never Assessed Comments Unknown Sex and Gender Information Value Date Recorded Sex Assigned at Not on file 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
--- OUTSIDE RECORDS SUMMARY | 2025-04-18 10:26 | XMS_ITS | Encounter Summary ---
Author Organization [facility] Address [address] [place] [address] Care Team Providers Care Training Technician Name Role Phone Rustam Trammell MD Primary Care Provider [phone] Encounter Details Date Type Department Care Team (Latest Contact Info) Description 2000 Outpatient Historical [facility] OBSANDOVALN-Head [place] [address] [place] [address] Tera Ness MD NO ADDRESS ON FILE Vaginitis and vulvovaginitis, unspecified (Primary Dx) Social History Tobacco Use Types Packs/Day Years Used Date Smoking Tobacco: Never Assessed Comments Unknown Sex and Gender Information Value Date Recorded Sex Assigned at Not on file Legal Sex Female 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
--- OUTSIDE RECORDS SUMMARY | 2025-04-18 10:26 | XMS_ITS | Encounter Summary ---
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
--- OUTSIDE RECORDS SUMMARY | 2025-04-18 10:26 | XMS_ITS | Encounter Summary ---
Author Organization [facility] Address [address] [place] [address] Care Team Providers Care Headliner Installer Name Role Phone Rustam Trammell MD Primary Care Provider [phone] Encounter Details Date Type Department Care Team (Latest Contact Info) Description 09/10/1997 Outpatient Historical [facility] [place] [address] [place] [address] Tera Ness MD NO ADDRESS ON FILE Circumscribe scleroderma (Primary Dx) Social History Tobacco Use Types Packs/Day Years Used Date Smoking Tobacco: Never Assessed Comments Unknown Sex and Gender Information Value Date Recorded Sex Assigned at Not on file Legal Sex Female 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
--- OUTSIDE RECORDS SUMMARY | 2025-04-18 10:26 | XMS_ITS | Encounter Summary ---
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
--- OUTSIDE RECORDS SUMMARY | 2025-04-18 10:26 | XMS_ITS | Clinical Summary ---
Author Organization [facility] Address [address] [place] [address] Care Team Providers Care System Admin Name Role Phone Unavailable Primary Care Provider Unavailabl e Allergies No known active allergies Medications folic acid (FOLVITE) 1 mg tablet Take 1 mg by mouth daily. TWO TABS DAILY 0 Active levothyroxine 125 mcg tablet Take 150 mcg by mouth daily in the morning. 0 Active triamcinolone acetonide (KENALOG) 0.1 % Ointment Apply to affected area 2 times daily. 0 Active hydrOXYchloroQUI NE (PLAQUENIL) 200 mg tablet Take 200 mg by mouth 2 times daily. Alternating between two tabs and one tab 0 Active methotrexate (TREXALL) 10 mg Tablet Take 10 mg by mouth every 7 days. Six 25 mg tabs once a week 0 Active valACYclovir (VALTREX) 500 mg tablet 2 Active estradioL (ESTRACE) 0.01% (0.1 mg/g) vaginal cream 2 Active metoprolol succinate (Toprol XL) 25 mg Extended Release 24 hour tabletIndication s:Supraventricul ar tachycardia Take 0.5 Tablets (12.5 mg) by mouth 2 times daily. 90 Tablet 3 5 Active flecainide (TAMBOCOR) 50 mg TabletIndication s:Supraventricul ar tachycardia,PVC (premature ventricular contraction) Take 1 Tablet (50 mg) by mouth 3 times daily. 300 Tablet 3 5 Active Active Problems No known active problems Encounters Date Type Department Care Team Description 04/07/2025 External Device Data STL ABSTRACTION Provider, Abstract 04/07/2025 External Device Data ST[facility] ABSTRACTION Provider, Abstract 03/09/2025 External Device Data [facility] ABSTRACTION Provider, Abstract 03/02/2025 External Device Data [facility] ABSTRACTION Provider, Abstract 02/26/2025 1:00 PM CDT Office Visit [facility] [address] [place] [address] Corby Lyons, GAYE Fuchs' corneal dystrophy of both eyes (Primary Dx); Combined form of senile cataract of left eye; Dry eyes, bilateral; Hyperopia with regular astigmatism, bilateral 02/23/2025 External Device Data ST[facility] ABSTRACTION Provider, Abstract 02/09/2025 Orders Only [facility] [address] [facility] [address] [place] [address] Catia Hutton NP Mixed hyperlipidemia (Primary Dx); Supraventricular tachycardia; PVC (premature ventricular contraction); Syncope, unspecified syncope type; Sinus bradycardia 02/05/2025 Abstract [facility] [address] [address] Piero De MD 02/05/2025 Telephone [facility] [address] [address] Piero De MD Referral Request 02/04/2025 Telephone [facility] [address] [address] Piero De MD Referral Request 02/03/2025 Telephone [facility] [address] [facility] [address] [place] [address] Brooke Simpson, JÚNIOR-RECREATIONAL COUNSELOR 02/12/25 Calvin Appt Needs Rescheduled; Returning call from Last 3 Months Social History Tobacco Use Types Packs/Day Years Used Date Smoking Tobacco: Never Smokeless Tobacco: Never Tobacco Cessation:Counseling Given: Not Answered Comments Unknown Sex and Gender Information Value Date Recorded Sex Assigned at Not on file Legal Sex Female 12:56 AM RESEARCH STUDY ASSISTANT Gender Identity Not on file Sexual Orientation Not on file Last Filed Vital Signs Vital Sign Reading Time Taken Comments Blood Pressure 108/68 08/19/2023 12:57 PM RESEARCH STUDY ASSISTANT Pulse 94 08/19/2023 12:57 PM RESEARCH STUDY ASSISTANT Temperature - - Respiratory Rate - - Oxygen Saturation - - Inhaled Oxygen Concentration - - Weight 71.8 kg (158 lb 3.2 oz) 08/19/2023 12:57 PM RESEARCH STUDY ASSISTANT Height 167.6 cm (5' 6 ) 08/19/2023 12:57 PM RESEARCH STUDY ASSISTANT Body Mass Index 25.53 08/19/2023 12:57 PM RESEARCH STUDY ASSISTANT Plan of Treatment Upcoming Encounters Date Type Department Care Team (Late st Contact Info) Description 06/03/2025 8:30 AM RESEARCH STUDY ASSISTANT Office Visit [facility] Op[facility] [place] [address] [place] [address] Piero De MD [address] [place] [address] 08/17/2025 12:40 PM RESEARCH STUDY ASSISTANT Office Visit [facility] [address] [place] [address] Louisa Penny MD [address] [place] [address] Brooke Simpson, JÚNIOR-RECREATIONAL COUNSELOR [address] [place] [address] Health Maintenance Due Date Last Done Comments BREAST CANCER SCREENING 1991 COLORECTAL SCREENING 1996 Colorectal Cancer Screening 1996 FIT-DNA Q 3 years 1996 FIT/FOBT Q 1 year 1996 Flex Sig/CT Colonography Q 5 years 1996 RSV VACCINE (60+ or ) (1 - Risk 50-74 years 1-dose series) 2001 OSTEOPOROSIS SCREENING 2016 PNEUMOCOCCAL VACCINE 50+ YEA RS (2 of 2 - PPSV23, PCV20, or PCV21) 08/10/2020 06/15/2020 INFLUENZA VACCINE (#1) 2025 , 06/13/2020, 05/21/2018 COVID-19 Vaccine (5 - 2024-2 6 season) 2025 06/04/2022, 12/30/2021, 08/09/2020, Additional history exists DTAP/TDAP/TD VACCINES (2 - T d or Tdap) 12/03/2026 12/03/2016 ZOSTER VACCINE Completed 03/12/2023, 11/29/2022 Insurance [employer] PPO MCR RX [employer] RX Member Subscriber Plan / Payer (Ef fective 2020-Present) Name:Colleen Longo Relation to Subscriber:Self Name:Colleen Longo Payer ID:Not on file Group ID:[id number] Type:RX Medicare Part D Address: [address]
--- OUTSIDE RECORDS SUMMARY | 2025-04-18 10:26 | XMS_ITS | Clinical Summary ---
Author Organization [facility] Address [address] [place] [address] Care Team Providers Care Electromechanical Technologist Name Role Phone Rustam Trammell MD Primary Care Provider [phone] Medications triamcinolone acetonide (KENALOG) 0.1 % Ointment Apply to affected area 2 times daily. Active hydroxychloroqu ine (PLAQUENIL) 200 mg tablet Take 200 mg by mouth 2 times daily. Alternating between two tabs and one tab Active folic acid (FOLVITE) 1 mg tablet Take 1 mg by mouth daily. TWO TABS DAILY Active levothyroxine 137 mcg tablet Take 137 mcg by mouth daily electrical manufacturing technician. Take 1 tab 6 days per week Active levothyroxine 125 mcg tablet Take 125 mcg by mouth daily electrical manufacturing technician. Take 1 tab 1 day offsetting the other doses. Active methotrexate (TREXALL) 10 mg Tablet Take 10 mg by mouth every 7 days. Six 25 mg tabs once a week Active metoprolol tartrate (LOPRESSOR) 25 mg tablet Take 1 Tablet (25 mg) by mouth 2 times daily. 180 Tablet 3 1 Active flecainide (TAMBOCOR) 50 mg Tablet Take 1 Tablet (50 mg) by mouth 3 times daily. 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 Gender Identity Not on file Sexual Orientation Not on file Last Filed Vital Signs Vital Sign Reading Time Taken Comments Blood Pressure 124/72 10/13/2020 11:20 AM CDT Pulse 53 10/13/2020 11:20 AM CDT Temperature - - Respiratory Rate - - Oxygen Saturation - - Inhaled Oxygen Concentration - - Weight 72.1 kg (159 lb) 10/13/2020 11:20 AM CDT Height 170.2 cm (5' 7 ) 10/13/2020 11:20 AM CDT Body Mass Index 24.9 10/13/2020 11:20 AM CDT Plan of Treatment Health Maintenance Due Date Last Done Comments DTAP/TDAP/TD VACCINES (1 - Tdap) 1970 PNEUMOCOCCAL VACCINE 50+ YEA RS (1 of 2 - PCV) 1970 ZOSTER VACCINE (1 of 2) 1970 BREAST CANCER SCREENING 1991 COLORECTAL SCREENING 1996 FIT-DNA Q 3 years 1996 Flex Sig/CT Colonography Q 5 years 1996 RSV VACCINE (60+ or ) (1 - Risk 50-74 years 1-dose series) 2001 Colorectal Cancer Screening 12/09/2003 FIT/FOBT Q 1 year 12/09/2003 12/08/2002, 12/23/2000 OSTEOPOROSIS SCREENING 2016 INFLUENZA VACCINE (#1) 2025 Insurance [facility] DUAL [place]PLE[place] [address] Care Teams Electromechanical Technologist Relationship Specialty Start Date End Date Rustam Trammell MD [facility] [place] [address] PCP - General Family Practice 11/07/20
--- OUTSIDE RECORDS SUMMARY | 2025-04-18 10:27 | XMS_ITS | Data Portability ---
Author Organization MICHELL [facility], [facility], [facility] Address [address] [facility] [address] [place] [address] Care Team Providers Care Special Education Aide Name Role Phone TRAMMELLNAV JulioON Primary Care Provider TOMÁS HILL Referring Provider MARIO MAYER Referring Provider Assessment No assessment recorded. Plan of Treatment Reminders Order Date Submit Date Provider Last Modified By Organization Details Last Modified Time Details Appointments ACUTE VISIT 2024 09:20A M WALK-IN Not available Not available Not available Lab CBC 2024 025 [place] [facility] [place] [facility], [address] [place] [address], [address], 03/24/2025 14:19:16 C-react tawnya protein , quantit ative, serum or plasma 2024 025 AUSTIN [facility], [address] [place] [address], [facility] [address] [place], [address], 03/25/2025 07:45:50 creatin ine, blood 2024 025 [facility] ([facility]), [address] [place], [address], 03/24/2025 14:21:11 ESR (erythr ocyte sedimen tation rate), blood 2024 025 [facility] ([facility]), [address] [place], [address], 03/24/2025 15:17:02 hepatic functio n panel, serum 2024 [facility], [address], [address], [place], [address], 03/24/2025 14:20:34 CBC - ALL LABS ORDERED BY DR Dalton/ WILL FAX YF 2024 [facility], [address], [address], [place], [address], 01/14/2025 10:13:35 ESR (erythr ocyte sedimen tation rate), blood 2024 [facility] ([facility]), [address] [place] [address], [address], 01/14/2025 11:13:23 C-react tawnya protein , quantit ative, serum or plasma 2024 025 [facility], [address] [facility], [place], [address], 01/15/2025 06:14:32 hepatic functio n panel, serum 2024 025 [facility], [address] [place], [place] [address], [address], [place], [address], 01/14/2025 11:32:50 creatin ine, blood 2024 025 [facility] ([facility]), [address] [place] [address], [address], 01/14/2025 11:33:25 Referral None recorde d. Procedures None recorde d. Surgeries None recorde d. Imaging XR, chest, 2 view 2024 [email or web address] [facility] ([facility]), [address] [facility], [place], [address], 03/25/2025 13:48:30 Medication Orders amoxici llin 875 mg-pota ssium clavula jose 125 mg tablet 2024 025 [facility], [address], [place], [address], 03/20/2025 05:01:29 Patient TargetsNo targets recorded. Patient Instructions Encounter Date Encounter Id Patient Instructions Last Modified By Organization Details Last Modified Time 04/18/2025 [id number] As she describes it feels like it is going to explode when she bends forward- I am going to send her to ER for further eval [email or web address] Not available 04/18/2025 11:18:14 Reason for Referral None Reported. Results Created Date Observation Date Name Description Value Unit Range Abnormal Flag Note LastModifiedBy Organization Detail LastModifiedTime 01/15/20 25 01/14/2025 CBC WBC 6.7 x10 4.0-10 .5 Not Available [facility] [address] [facility] 1, [place], [address], 01/14/2025 10:13:35 01/15/20 25 01/14/2025 CBC RBC 4.60 x10 3.50-5 .50 Not Available [facility] [address] [facility] 1, [place], [address], 01/14/2025 10:13:35 01/15/20 25 01/14/2025 CBC HGB 14.1 g/dL 12.0-1 6.0 Not Available [facility] [address] [facility] 1, [place], [address], 01/14/2025 10:13:35 01/15/20 25 01/14/2025 CBC HCT 43.8 % 37.0-4 7.0 Not Available [facility] [address] [facility] 1, [place], [address], 01/14/2025 10:13:35 01/15/20 25 01/14/2025 CBC MCV 95.2 fL 80.0-9 9.9 Not Available [facility] [address] [facility] 1, [place], [address], 01/14/2025 10:13:35 01/15/20 25 01/14/2025 CBC MCH 30.6 pg 27.0-3 2.0 Not Available [facility] [address] [facility] 1, [place], [address], 01/14/2025 10:13:35 01/15/20 25 01/14/2025 CBC MCHC 32.2 g/dL 32.0-3 6.0 Not Available [facility] [address] [facility], [place], [address], 01/14/2025 10:13:35 01/15/20 25 01/14/2025 CBC RDW 15.4 % 11.5-1 4.5 high Not Available [facility] [address] [facility] 1, [place], [address], 01/14/2025 10:13:35 01/15/20 25 01/14/2025 CBC plt 222.2 x10 140.0- 451.0 Not Available [facility] [address] [facility] 1, [place], [address], 01/14/2025 10:13:35 01/15/20 25 01/14/2025 CBC lymphocytes % 12.7 % 20.0-5 0.0 low Not Available [facility] [address] [facility] [address] [facility] [address] 1, [place], [address], 01/14/2025 10:13:35 01/15/20 25 01/14/2025 CBC granulcytes % 74.0 % 30.0-7 0.0 high Not Available [facility] [address] [facility] 1, [place], [address], 01/14/2025 10:13:35 01/15/20 25 01/14/2025 CBC monocytes % 7.6 % 2.0-16 .0 Not Available [facility] [address] [facility], [place], [address], 01/14/2025 10:13:35 01/15/20 25 01/14/2025 CBC granulcytes# 5.0 x10 Not Arabella ilable [facility] [address] [facility] 1, [place], [address], 01/14/2025 10:13:35 01/15/20 25 01/14/2025 CBC lymphocytes # 0.9 x10 Not Available [facility] [address] [address], [place], [address], 01/14/2025 10:13:35 01/15/20 25 01/14/2025 CBC monocytes # 0.5 x10 Not Avai lable [facility] [address] [address], [place], [address], 01/14/2025 10:13:35 01/15/20 25 01/14/2025 LIVER PANEL (FEMA LE) total protein 7.3 g/dL 6.0-8. 5 Not Available [facility] [address] [facility] [facility], [place], [address], 01/14/2025 11:32:50 01/15/20 25 01/14/2025 LIVER PANEL (FEMA LE) total bilirubin 1.3 mg/dL 0.2-1. 3 Not Available [facility] [address] [facility], [place], [address], 01/14/2025 11:32:50 01/15/20 25 01/14/2025 LIVER PANEL (FEMA LE) conj. bilirubin (direct) 0.00 mg/dL 0.00-0 .40 Not Available [facility] [address] [facility] 1, [place], [address], 01/14/2025 11:32:50 01/15/20 25 01/14/2025 LIVER PANEL (FEMA LE) albumin 4.2 g/dL 3.5-5. 5 Not Available [facility] [address] [facility], [place], [address], 01/14/2025 11:32:50 01/15/20 25 01/14/2025 LIVER PANEL (FEMA LE) AST (SGOT) 48.0 U/L 0.0-46 .0 high Not Available [facility] [address] [facility], [place], [address], 01/14/2025 11:32:50 01/15/20 25 01/14/2025 LIVER PANEL (FEMA LE) altv (SGPT) 50.0 U/L 13.0-6 9.0 normal Not Available [facility] [address] [facility], [place], [address], 01/14/2025 11:32:50 01/15/20 25 01/14/2025 LIVER PANEL (FEMA LE) ALP phos 74.0 U/L 30.0-1 40.0 normal Not Available [facility] [address] [facility], [place], [address], 01/14/2025 11:32:50 01/15/20 25 01/15/2025 C-RENU CTIVE PROTE IN C-reactive protein 5.3 mg/L <8.0 normal Not Available [facility] [address] , [place], [address], 01/15/2025 06:14:32 01/15/20 25 01/14/2025 ESR (eryt hrocy te sedim entat ion rate) , blood SedRate 19 Not Available [facility] ([facility]) [address] [place], [address], 01/14/2025 09:56:29 01/27/2001/26/2025 creat inine , blood creatinine 0.93 mg/dL 0.4-1. 5 normal Not Available [facility] ([facility]) [address] [place], [address], 01/14/2025 09:56:58 03/24/2003/24/2025 CBC WBC 6.2 x10 4.0-10 .5 Not Available [facility] [address] [facility] 1, [place], [address], 03/24/2025 14:19:16 03/24/2003/24/2025 CBC RBC 4.49 x10 3.50-5 .50 Not Available [facility] [address] [facility], [place], [address], 03/24/2025 14:19:16 03/24/20 25 03/24/2025 CBC HGB 14.1 g/dL 12.0-1 6.0 Not Available [facility] [address] [facility] 1, [place], [address], 03/24/2025 14:19:16 03/24/2003/24/2025 CBC HCT 43.6 % 37.0-4 7.0 Not Available [facility] [address] [facility] [address] [facility] 1, [place], [address], 03/24/2025 14:19:16 03/24/20 25 03/24/2025 CBC MCV 97.0 fL 80.0-9 9.9 Not Available [facility] [address] [facility] 1, [place], [address], 03/24/2025 14:19:16 03/24/2003/24/2025 CBC MCH 31.4 pg 27.0-3 2.0 Not Available [facility] [address] [facility] 1, [place], [address], 03/24/2025 14:19:16 03/24/2003/24/2025 CBC MCHC 32.4 g/dL 32.0-3 6.0 Not Available [facility] [address] [facility] 1, [place], [address], 03/24/2025 14:19:16 03/24/2003/24/2025 CBC RDW 14.9 % 11.5-1 4.5 high Not Available [facility] [address] [facility], [place], [address], 03/24/2025 14:19:16 03/24/2003/24/2025 CBC plt 277.1 x10 140.0- 451.0 Not Available [facility] [address] [facility] 1, [place], [address], 03/24/2025 14:19:16 03/24/2003/24/2025 CBC lymphocytes % 27.8 % 20.0-5 0.0 Not Available [facility] [address] [facility] 1, [place], [address], 03/24/2025 14:19:16 03/24/2003/24/2025 CBC granulcytes % 59.3 % 30.0-7 0.0 Not Available [facility] [address] [facility] 1, [place], [address], 03/24/2025 14:19:16 03/24/2003/24/2025 CBC monocytes % 7.8 % 2.0-16 .0 Not Available [facility] [address] [facility] 1, [place], [address], 03/24/2025 14:19:16 03/24/2003/24/2025 CBC granulcytes# 3.7 x10 Not Arabella ilable [facility] [address] [facility] 1, [place], [address], 03/24/2025 14:19:16 03/24/2003/24/2025 CBC lymphocytes # 1.7 x10 Not Available [facility] [address] [facility] 1, [place], [address], 03/24/2025 14:19:16 03/24/2003/24/2025 CBC monocytes # 0.5 x10 Not Avai lable [facility] [address] [facility] 1, [place], [address], 03/24/2025 14:19:16 03/24/2003/24/2025 LIVER PANEL (FEMA LE) total protein 7.6 g/dL 6.0-8. 5 Not Available [facility] [address] [facility] 1, [place], [address], 03/24/2025 14:20:34 03/24/2003/24/2025 LIVER PANEL (FEMA LE) total bilirubin 0.9 mg/dL 0.2-1. 3 Not Available [facility] [address] [facility] 1, [place], [address], 03/24/2025 14:20:34 03/24/2003/24/2025 LIVER PANEL (FEMA LE) conj. bilirubin (direct) 0.00 mg/dL 0.00-0 .40 Not Available [facility] [address] [facility] 1, [place], [address], 03/24/2025 14:20:34 03/24/20 25 03/24/2025 LIVER PANEL (FEMA LE) albumin 4.4 g/dL 3.5-5. 5 Not Available [place] [address] [facility] 1, [place], [address], 03/24/2025 14:20:34 03/24/20 25 03/24/2025 LIVER PANEL (FEMA LE) AST (SGOT) 64.0 U/L 0.0-46 .0 high Not Available [facility] 5 [facility] 1, [place], [address], 03/24/2025 14:20:34 03/24/20 25 03/24/2025 LIVER PANEL (FEMA LE) altv (SGPT) 71.0 U/L 13.0-6 9.0 abnormal Not Available [address], [place], [address], 03/24/2025 14:20:34 03/24/20 25 03/24/2025 LIVER PANEL (FEMA LE) ALP phos 77.0 U/L 30.0-1 40.0 normal Not Available [address] [address], [place], [address], 03/24/2025 14:20:34 03/24/20 25 03/25/2025 C-RENU CTIVE PROTE IN C-reactive protein <3.0 mg/L <8.0 normal Not Available [facility] [address] [place], [address], 03/25/2025 07:45:50 03/24/2003/24/2025 ESR (eryt hrocy te sedim entat ion rate) , blood SedRate 21 Not Available [facility] ([facility]) [address] [place], [address], 03/24/2025 13:08:57 03/24/2003/24/2025 creat inine , blood creatinine 0.81 mg/dL 0.4-1. 5 normal Not Available [facility] ([facility]) [address] [place], [address], 03/24/2025 13:08:54 03/25/2003/25/2025 XR, chest , 2 view No observ ation record ed. [facility] ([facility]) [address] [place], [address], 03/25/2025 13:01:27 03/26/2003/25/2025 imagi ng/di agnos tic resul t No observ ation record ed. [facility] [address] [place], [address], 03/29/2025 15:17:06 Result Notes None recorded. Problems Name Problem SNOMED Code Status Onset Date Resolution Date Notes Provider Name and Address Organization Details Recorded Time Hyperlip idemia 44916111 Completed 201506/20/2015 Hyperlip idemia - Status is Inactive ; 06/20/19 16 1:22PM by Albertina Espinoza LPN, Annotati on/Adden dum; Promoted ; acuity set as *; Not Available [facility] 3 03:16:00 Hyperten sive disorder 08606844 Completed 201506/20/2015 Hyperten argelia - Status is Inactive ; 06/20/19 16 1:22PM by Albertina Espinoza LPN, Annotati on/Adden dum; Promoted ; acuity set as *; Not Available [facility] 3 03:16:03 Atrial fibrilla tion 42129432 Completed 202103/01/2022 Atrial Fibrilla tion - Status is Inactive ; 03/01/20 2:36PM by Inga Trammell PA-C, Annotati on/Adden dum; Promoted ; acuity set as *; ATRIAL FIBRILLA TION - Status is Inactive ; Recorded 03/01/20 2:36PM by Inga Trammell PA-C, Annotati on/Adden dum; Promoted ; acuity set as *; Not Available [facility] 3 03:16:03 Tobacco dependen ce syndrome 80029239 Completed 202103/01/2022 Tobacco use - Status is Inactive ; Recorded 03/01/20 2:58PM by Inga Trammell PA-C, Annotati on/Adden dum; Promoted ; acuity set as *; Not Available [facility] 3 03:16:03 Morphea 621315267 Active 2022 MORPHEA; Recorded 07/13/19 12:08PM by Albertina Espinoza LPN, Office Visit; Promoted ; acuity set as *; Not Available [facility] 3 03:16:02 Goiter 7981291 Active 2022 goiter; goiter at age 9 or 10 began thyroid medicati on age 14; ALBERTINA abdullahi, [facility] 5 12:10:06 Hypothyr oidism 42996144 Active 2022 ALBERTINA abdullahi, [facility] 3 10:44:41 Lichen sclerosu s 824134768 Active 2022 ALBERTINA ESPINOZA null, [facility] 3 10:44:50 Rheumato id arthriti s 48068332 Active 2022 ALBERTINA ESPINOZA null, [facility] 3 10:44:58 Supraven tricular tachycar akshat 5911004 Active 2022 ALBERTINA abdullahi, [facility] 3 10:45:05 History of herpes zoster 42852735384 9108 Active 2022 Sim Trammell MD [address] [place] [address], [address] , [facility] 3 11:33:34 Paroxysm al atrial fibrilla tion 724935450 Active 2022 ALBERTINA ALEXIS abdullahi [facility], Joanne 5 12:10:23 Chronic kidney disease stage 3A 020277580 Active 2024 ALBERTINA ALEXIS abdullahi [facility], [facility] 5 12:42:15 Problem Notes None recorded. Procedures Surgical History Date Name Laterality Status Provider Name and Address Organization Details Recorded Time repair of femoral hernia completed ALBERTINA ALEXIS [facility], [facility] 11/29/2022 10:48:22 Carpal tunnel surgery completed [facility]/29/2022 10:48:33 Imaging Results None recorded. Procedure [...] topical cream APPLY TOPICALL Y EVERY DAY 10/09 /2025 completed Not Available Not Available Not Available [...] twice weekly 04/29 completed 0; Recorded 07/13/19 12:09PM by Albertina Espinoza LPN, Office Visit; Not Available Not Available Not Available folic acid daily 04/30 completed 0; Recorded 07/13/19 12:09PM by Albertina Espinoza LPN, Office Visit; Not Available Not Available Not Available methotrex ate weekly 04/[address] Dalton; 0; Recorded 07/13/19 12:09PM by Albertina Espinoza LPN, Office Visit; Not Available Not Available Not Available Noritate daily 10/01 completed Recorded 03/01/20 22 7:24AM by Leila Yen [...] 07/05/19 2:53PM by Albertina Espinoza LPN (Authori zed through Sim Trammell MD), Annotati on/Adden dum; [...] height Body mass index (BMI) Body weight Body temperature Heart rate Oxygen saturation Oxygen saturation in Arterial blood by Pulse oximetry Systolic And Diastolic Provider Name and Address Organization Details Last Updated DateTime 5 166.37 cm 25.4 kg/m2 84603.5 2 g 98 [degF] 64 /min 97 % 97 % 122/70 mm[Hg] Karen Carmona [facility] 5 17:15:50 Date Recorded Body height Body mass index (BMI) Body weight Body temperature Heart rate Oxygen saturation Oxygen saturation in Arterial blood by Pulse oximetry Systolic And Diastolic Provider Name and Address Organization Details Last Updated DateTime 5 166.37 cm 25.6 kg/m2 75887.4 1 g 97.9 [degF] 91 /min 98 % 98 % 128/68 mm[Hg] ALBERTINA ESPINOZA [facility] 5 12:35:03 Date Recorded Body height Body mass index (BMI) Body weight Heart rate Oxygen saturation Oxygen saturation in Arterial blood by Pulse oximetry Respiratory rate Body temperature Systolic And Diastolic Provider Name and Address Organization Details Last Updated DateTime 5 166.37 cm 26.1 kg/m2 55375.1 9 g 84 /min 97 % 97 % 18 /min 98 [degF] 128/86 mm[Hg] STEPHANIA DEGROOT [facility] 5 10:37:39 Social History Question Answer Notes LastModified by Organizat ion Details LastModified Time Tobacco Smoking Status Never Smoker LABERTINA ESPINOZA [facility] 11/29/2022 10:47:51 What Was The Date Of Your Most Recent Tobacco Screening? 04/18/2025 [email or web address] Information not available 04/18/2025 Sex: Unknown Functional Status Question Answer Note LastModified by Organizat ion Details LastModified Time Do you use any illicit or recreational drugs? No [email or web address] Information not available 11/29/2022 Do you or have you ever used any other forms of tobacco or nicotine? No Information not available 04/30/2023 What is your level of alcohol consumption? None [email or web address] Information not available 11/29/2022 Do you or have you ever used any nicotine-free cigarettes, vape, or chewing tobacco? No Information not available 08/18/2024 Mental Status None recorded. Family History Relationship Description Onset Age of this Age Resolved Age Notes LastModified by Organization Details LastModified Time Father Apical hypertrophic cardiomyopat hy [email or web address] Not available 11/29 10:46:44 Mother Malignant neoplasm of colon Not available 11/29 10:46:53 Brother Autoimmune thyroiditis Not available 10:47:14 Brother Malignant neoplasm of colon [id number] Not available 11/29 10:49:54 Sister Autoimmune thyroiditis [email or web address] Not available 10:47:14 Medical History No medical history recorded. Gynecological HistoryNo gynecological history recorded. Obstetrics History GPAL:G 0 P 0 0 0 0 Immunizations Vaccine Type Date Status Note Provider Nam e and Address Organization Details Recorded Time Influenza, recombinant, quadrivalent, PF 0 completed ALBERTINA abdullahi [facility] 11/29/2022 10:45:32 Influenza, high-dose, quadrivalent, PF 2 [facility] 11/29/2022 10:45:32 COVID-19, mRNA, LNP-S, PF, 100 mcg/0.5mL dose or 50 mcg/0.25mL dose 1 completed ALBERTINA abdullahi [facility] 11/29/2022 10:45:32 COVID-19, mRNA, LNP-S, PF, 100 mcg/0.5mL dose or 50 mcg/0.25mL dose 1 completed ALBERTINA abdullahi, [facility] 11/29/2022 10:45:32 COVID-19, mRNA, LNP-S, PF, 100 mcg/0.5mL dose or 50 mcg/0.25mL dose 2 completed ALBERTINA abdullahi [facility] 11/29/2022 10:45:32 COVID-19, mRNA, LNP-S, bivalent, PF, 50 mcg/0.5 mL or 25mcg/0.25 mL dose 2 completed ALBERTINA abdullahi, [facility] 11/29/2022 10:45:32 Tdap 7 completed ALBERTINA abdullahi [facility] 11/29/2022 10:45:32 Pneumococcal conjugate PCV 13 0 completed ALBERTINA abdullahi, [facility] 11/29/2022 10:45:32 zoster recombinant 3 completed ALBERTINA abdullahi, [facility] 11/29/2022 14:01:35 Influenza, split virus, trivalent, preservative 8 completed Not Available [facility] 07/23/2023 14:09:00 zoster recombinant 3 completed Sim Trammell MD [address] [place] [address], [address], [facility] 03/20/2023 10:21:03 Past Encounters Encounter ID Performer Location Encounter Start Date Encounter Closed Date Diagnosis/Indication Diagnosis SNOMED-CT Code Diagnosis ICD10 Code Diagnosis IMO Codes Diagnosis Note [id number] Sim Trammell MD [facility] ([facility]) [address] [place] [address] 10/16/2022 15:04:12 10/22/2022 10:15:42 Fall in home 91490554 Y92.009 Pain of left hand 678298 2247 54675 M79.642 [id number] Sim Trammell MD [facility] ([facility]) [address] [place] [phone] 11/29/2022 10:38:14 11/29/2022 14:36:02 Hypothyroidism 97433364 E03.9 Supraventr icular tachycardia 9630612 I47.1 Paroxysmal atrial fibrillation 337079597 I48.0 History of herpes zoster 6932181546 93532 Z86.19 [id number] Sim Trammell MD [facility] ([facility]) [address] [place] [phone] 03/12/2023 09:28:08 03/20/2023 21:37:19 Herpes zoster vaccination given 1624797987 83551 Z23 Hypothyroidism 77512700 E03.9 [id number] Jasiel Cortes MD [facility] ([facility]) [address] [place] [phone] 04/29/2023 11:44:50 04/29/2023 19:15:32 Bronchitis 92448327 J40 Patient is having persistent symptoms with recent fever. Recommend starting antibiotic s at this time. Discussed steroids but the patient would like to hold off on those for now. Write a prescripti on in case she has need of them. [id number] Sim Trammell MD [facility] ([facility]) [address] [place] [id number] 04/30/2023 08:49:05 04/30/2023 09:49:25 Bleeding from nose [id number] R04.0 we discussed supportive care with nasal saline and Vaselineav oid steroid nasal sprays and other irritantsa frin only to stop a bleed 2-4 sprays in the bleeding nostrilshu midify the home. [id number] Sim Trammell MD [facility] ([facility]) [address] [place] [address] [phone] 5 05/30/2023 11:48:26 05/30/2023 12:30:47 Acute upper respiratory infection [id number] J06.9 f/u if fever breathing worsens or sx persist. Atrial fibrillation 4943 6004 I48.91 Hypothyroidism 60432907 E03.9 [id number] Sim Trammell MD [facility] ([facility]) [address] [place] [address] [phone] 5 07/23/2023 14:08:02 07/23/2023 18:23:53 Cough 12206510 R05.9 the grand kids have gone through 20 boxes of nasal tissues since . the grand kids have also been sick fever cough congestion runny nose etc. pocket script for amoxilsupp ortive care [id number] Sim Trammell MD [facility] ([facility]) [address] [place] [address] [phone] 5 10/02/2023 14:30:38 10/02/2023 15:25:56 Vertigo [id number] R42 call tomorrow with progress [id number] Sim Trammell MD [facility] ([facility]) [address] [place] [address] [phone] 10/09/2023 13:20:13 10/10/2023 10:45:57 Rheumatoid arthritis 17218435 M06.041 Long-term drug therapy 868312242 Z79.830 [id number] Sim Trammell MD [facility] ([facility]) [address] [place] [address] [phone] 5 11/04/2023 12:56:16 11/04/2023 14:15:04 Hypothyroidism 75857581 E03.9 Rheumatoid arthritis 698 50818 M06.041 Paroxysmal atrial fibrillation 262880714 I48.0 i cannot find any interactio ns. i checked epocrates as well. i read studies showing methotrexa te may decrease risk of atrial fibrillati on. she will take her medication today and let me know how it goes. Nasal congestion 2100451 0 R09.81 [id number] Sim Trammell MD [facility] ([facility]) [address] [place] [address] [phone] 5 11/28/2023 12:30:26 11/29/2023 09:47:56 Hypothyroidism 28669627 E03.9 Rheumatoid arthritis 698 26918 M06.041 Long-term drug therapy 657741375 Z79.316 [id number] Sim Trammell MD [facility] ([facility]) [address] [place] [address] [phone] 5 12/02/2023 10:34:08 12/02/2023 13:12:04 Rheumatoid arthritis 12274039 M06.041 to refill meds used for poison michelle. Chronic hoarseness 68657 02759 105 R49.0 pepcid Hypothyroidism 41977221 E03.9 [id number] LAURENCE BENITEZ [facility] ([facility]) [address] [place] [address] [phone] 04/05/2024 16:16:36 04/05/2024 16:35:52 Acute pansinusitis 0687847 J01.40 will hold methotrexa te while on doxy this week.Discu ssed use of antibiotic . Take with food.May use Luis's nasal inserts and also apply on chest. Push oral fluids. Consider nasal saline rinses.Use tylenol/mo royal for camacho. [id number] ANDREA BAE POLICY ADVISER [facility] ([facility]) [address] [place] [address] [phone] 5 04/10/2024 16:41:04 04/10/2024 17:29:00 Cough 44058230 R05.9 Finish doxy as prescribed . Start the prednisone prescribed today. May continue using otc meds. [id number] Sim Trammell MD [facility] ([facility]) [address] [place] [address] [phone] 5 05/11/2024 12:02:18 05/11/2024 12:48:13 Contact dermatitis caused by urushiol from [place] poison michelle 885969318 L25.5 [id number] Sim Trammell MD [facility] ([facility]) [address] [place] [address] [phone] 5 05/27/2024 15:37:52 05/28/2024 12:19:56 Rheumatoid arthritis 75624105 M06.041 to refill meds used for poison michelle. Long-term drug therapy 386119102 Z79.899 Hypothyroidism 66493825 E03.9 [id number] Sim Trammell MD [facility] ([facility]) [address] [place] [address] [phone] 5 06/02/2024 13:01:24 06/02/2024 15:36:29 Contact dermatitis caused by urushiol from [facility] 633962033 L25.5 [id number] Sim Trammell MD [facility] ([facility]) [address] [place] [address] [phone] 5 08/18/2024 11:53:01 08/19/2024 18:43:10 Hematoma of face 216624330 S00.83XA [id number] Sim Trammell MD [facility] ([facility]) [address] [place] [address] [phone] 5 08/26/2024 09:23:28 08/27/2024 06:58:06 Long-term drug therapy 304406156 Z79.298 [id number] Sim Trammell MD [facility] ([facility]) [address] [place] [address] [phone] 01/14/2025 09:55:05 01/15/2025 12:38:53 Long-term current use of drug therapy 489074312 Z79.370 [id number] [id number] LAURENCE ANAYA [facility] ([facility]) [address] [place] [address] [phone] 5 03/06/2025 17:07:06 03/09/2025 13:39:10 Acute upper respiratory infection 44240137 J06.9 2456 May use otc meds like zyrtec and fluticason e nasal spray as needed for symptoms. Return to clinic with any new or worsening symptoms. [id number] Sim Trammell MD [facility] ([facility]) [address] [place] [address] [phone] 03/24/2025 13:05:16 03/25/2025 09:34:12 Long-term current use of drug therapy 940574718 Z79.136 5922733 [id number] Sim Trammell MD [facility] ([facility]) [address] [place] [address] [phone] 5 03/25/2025 12:28:41 03/25/2025 13:01:48 Chronic kidney disease stage 3A 670098215 N18.31 18556220 added for historical accuracy not addressed today but is an active problem. Persistent cough 5916920 02 R05.3 [id number] resume your allergy meds. has now had these sx's start early fall for 3 straight years. f/u if fever wheezing or symptoms worsening. [id number] DIANELYS AMOS APRN [facility] ([facility]) [address] [place] [address] 04/18/2025 10:22:36 04/18/2025 11:18:26 Neck pain 54728893 M54.2 36419 neck pressure Health Concerns Section Related Observation LastModified by Organization Detai ls LastModified Time None Recorded Concern Status LastModified by Organization Details LastModified Time None Recorded Advance Directives Directive None Recorded Payers Insurance Date Sequence Insurance Name Policy Number Policy Adam Covered Member ID Adam Member ID Guarantor Name 03/30/2025 1 [facility] (MEDICARE REPLACEMENT/A DVANTAGE - PPO) Colleen Longo [id number] Colleen Longo 03/25/2025 1 [facility] (MEDICARE REPLACEMENT/A DVANTAGE - PPO) [id number] Colleen Longo [id number] Colleen Longo Notes Date Note Type Note Provider Name and Address Organization Details Recorded Time 03/06/20 25 text/htm l ROS as noted in the HPI walk in ptPt has a cough, chest and head congestion, eye drainage and a headache for 3 weeks. Patient started using cough syrup and fluticasone nasal spray this AM to help with symptoms. Patient states that she coughs up infection once an hour. LAURENCE ANAYA [address] [place], [address], [facility], Joanne 03/06/2025 17:42:58 03/25/20 25 text/htm l CoughReported by PatientHPIFor severity, patient reportsworsening. For associated symptoms, patient reportssputum productionbut reportsno fever,no wheezing, andno shortness of breath. For quality, patient reportsproductive. For duration, patient reportsintermittentandacute (<3 weeks). For onset/timing, patient reportssudden. For context, patient reportsnon-smoker.Pt was seen at walk in clinic and was prescribed Augmentin. She reports that she has finished the ABX. her visit was roughly 19 days ago. ROS as noted in the HPI Sim Trammell MD [address] [place], [address], [facility] 03/25/2025 12:57:38 04/18/20 25 text/htm l walk-inPatient stated that yesterday around 4pm she started having pressure in her anterior neck, denies injury. Pressure is increased when she bends forward. Pain in her ears DIANELYS AMOS APRN [address] [place], [address], [facility] 04/18/2025 11:18:24 OBGyn Episode No OBEpisode recorded.
--- NOTE | 2025-04-18 10:44 | CTR_ITS ---
PROCEDURE INFORMATION: Exam: CTA Chest With Contrast Exam date and time: 04/18/2025 1:48 PM Age: 74 years old Clinical indication: Pain; Chest pressure; Additional info: Chest pressure with bending over TECHNIQUE: Imaging protocol: Computed tomographic angiography of the chest with contrast. Exam focused on the arteries. 3D rendering (Not supervised by radiologist): MIP and/or 3D reconstructed images were created by the technologist. Radiation optimization: All CT scans at this facility use at least one of these dose optimization techniques: automated exposure control; mA and/or kV adjustment per patient size (includes targeted exams where dose is matched to clinical indication); or iterative reconstruction. Contrast material: OMNIPAQUE 350; Contrast volume: 75 ml; Contrast route: INTRAVENOUS (IV); COMPARISON: CR (CHEST, ) 04/18/2025 10:48 AM RADIATION DOSE METRICS: Total DLP (mGy-cm): 266.71 FINDINGS: Pulmonary arteries: Multiple small pulmonary emboli within the 3rd order branches of the lower lobe right lung, images 4/29 and 4/30. Aorta: Fusiform aneurysm, ascending thoracic aorta measuring 4.3 cm in diameter. 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 Lungs: Mild bilateral dependent atelectasis of the lungs. Pleural spaces: Unremarkable. No pneumothorax. No pleural effusion. Heart: There is cardiomegaly. Findings concerning for mild right heart strain.The RV/LV ratio is 0.93 (Abnormal is >0.9). Coronary arteries: There are no atherosclerotic calcifications of the coronary arteries. Lymph nodes: Partially calcified subcarinal lymph node. No enlarged lymph nodes. Gallbladder and biliary ducts: There are multiple radiopaque stones in the gallbladder lumen. Stomach: There is a small gastric hiatal hernia. Bones/joints: There is diffuse idiopathic skeletal hyperostosis of the thoracic spine. Soft tissues: The remaining soft tissue is unremarkable. CT/CT angio chest PE protcl [id number] IMPRESSION: 1.Multiple small pulmonary emboli within the 3rd order branches of the lower lobe right lung. 2. Fusiform aneurysm, ascending thoracic aorta as described. 3. Findings concerning for mild right heart strain,The RV/LV ratio is 0.93 (Abnormal is >0.9).
--- NOTE | 2025-04-18 10:44 | CTR_ITS ---
PROCEDURE INFORMATION: Exam: CTA Neck With Contrast Exam date and time: 04/18/2025 1:52 PM Age: 74 years old Clinical indication: Pain; Other: Neck pressure; Additional info: Pressure with bending over TECHNIQUE: Imaging protocol: Computed tomographic angiography of the neck with contrast. Exam focused on the cervical segments of the vasculature. 3D rendering (Not supervised by radiologist): MIP and/or 3D reconstructed images were created by the technologist. Radiation optimization: All CT scans at this facility use at least one of these dose optimization techniques: automated exposure control; mA and/or kV adjustment per patient size (includes targeted exams where dose is matched to clinical indication); or iterative reconstruction. Contrast material: OMNIPAQUE 350; Contrast volume: 75 ml; Contrast route: INTRAVENOUS (IV); COMPARISON: CT angio chest PE protcl [id number] 04/18/2025 1:48 PM RADIATION DOSE METRICS: Total DLP (mGy-cm): 362.06 FINDINGS: Right common carotid artery: No stenosis. No dissection or occlusion. Right internal carotid artery: No stenosis of the extracranial segment. No dissection or occlusion. Right external carotid artery: No occlusion or stenosis of the origin. Left common carotid artery: No stenosis. No dissection or occlusion. Left internal carotid artery: No stenosis of the extracranial segment. No dissection or occlusion. Left external carotid artery: No occlusion or stenosis of the origin. Right vertebral artery: No stenosis. No dissection or occlusion. Left vertebral artery: No stenosis. No dissection or occlusion. Paranasal sinuses: Mucous retention cyst in the floor of the right maxillary antrum. Soft tissues: Normal. No significant soft tissue swelling. Bones/joints: Multilevel cervical spondylosis and advanced disc degeneration at C5-C6 with severe right foraminal stenosis at that level due to uncovertebral and facet joint arthrosis. CT/CT angio neck [id number] IMPRESSION: No stenosis or occlusion. REFERENCES: NASCET CRITERIA. The degree of stenosis in the cervical segment of the internal carotid artery is based on NASCET criteria. Normal is no stenosis. Mild is less than 50% stenosis. Moderate is 50-69% stenosis. Severe is 70% to 99% stenosis. Total occlusion is no detectable patent lumen.
--- NOTE | 2025-04-18 10:44 | XRR_ITS ---
PROCEDURE INFORMATION: Exam: XR Chest Exam date and time: 04/18/2025 10:48 AM Age: 74 years old Clinical indication: Other: Pressure in neck; Additional info: Chest pressure with bending over TECHNIQUE: Imaging protocol: Radiologic exam of the chest. Views: 1 view. COMPARISON: CR XR chest 2V* [id number] 03/25/2025 12:13 PM FINDINGS: Lungs: Unremarkable. No consolidation. Pleural spaces: Unremarkable. No gross pleural effusion. No pneumothorax. Heart/Mediastinum: Unremarkable. No cardiomegaly. Bones/joints: Unremarkable. XR/XR chest 1V portable [id number] IMPRESSION: No acute findings.
--- NOTE | 2025-04-18 10:44 | W.ED.CHESTPA ---
Documented by User: CORINA Coto 04/18/25 14:19 HPI - Chest Pain General: Chief Complaint: Chest Pain Stated Complaint: pressure in the throat/neck area Time Seen by Provider: 04/18/25 10:27 Source: patient Mode of arrival: ambulatory Limitations: no limitations History of Present Illness: Patient is a nice 74-year-old female with history autoimmune disease who presents to ED today with a complaint of pressure in both sides of her neck worse with bending over. She states she began noticing symptoms around 4 PM yesterday evening. She does not complain of any neck pain. No difficulty or painful swallowing. She has not noticed any neck swelling. No difficulty moving her neck. She did feel like today she was getting pressure in her chest-again worse with bending over. She does complain of pain substernally with deep inspiration. She has not been sick recently. No fevers. No known previous cardiac issues. MD complaint: chest pain (pressure) and other (neck pressure) Onset (ago): day(s) (yesterday) Prior episodes: No Pain location: substernal Quality: other (pressure) Exacerbating factors: other (bending over) Associated symptoms: Deny abdominal pain, dyspnea, fever(s), nausea, palpitations, syncope or vomiting Treatment prior to arrival: none Risk Factors: Coronary artery disease risk factors: hypertension Thoracic aortic dissection risk factors: none Related Data Home Medications ?Medication ?Instructions ?Recorded ?Confirmed flecainide 50 mg tablet 50 mg PO Q12H 12/17/19 04/18/25 tacrolimus 0.1 % topical ointment 1 applic topical .2XWEEKLY 01/11/20 04/18/25 cholecalciferol (vitamin D3) 25 50 mcg PO DAILY 04/19/20 04/18/25 mcg (1,000 unit) capsule aspirin 81 mg tablet,delayed 81 mg PO DAILY 09/26/21 04/18/25 release (Adult Aspirin Regimen) clobetasol 0.05 % topical ointment 1 applic topical .2XWEEKLY 04/18/25 04/18/25 cyanocobalamin (vitamin B-12) 1,000 mcg PO DAILY 04/18/25 04/18/25 1,000 mcg tablet (Vitamin B-12) levothyroxine 150 mcg tablet 150 mcg PO QAM 04/18/25 04/18/25 metoprolol succinate 25 mg 12.5 mg PO BID 04/18/25 04/18/25 tablet,extended release 24 hr Previous Rx's ?Medication ?Instructions ?Recorded estradiol 0.01% (0.1 mg/gram) 1 g vaginal .COMPLEX #42.5 grams 09/24/22 vaginal cream folic acid 1 mg tablet 1 mg PO DAILY #90 tabs 09/28/24 methotrexate sodium 2.5 mg tablet See Rx Instructions PO .week 02/02/25 Rheumatoid Arthritis #150 tabs prednisone 10 mg tablet See Rx Instructions PO DAILY joint 02/02/25 pain #30 tabs Allergies Allergy/AdvReac Type Severity Reaction Status Date / Time No Known Allergies Allergy Verified 02/02/25 15:19 Review of Systems Const: Denies: fever(s), chills, body aches, fatigue or malaise Eyes: Denies: change in vision or blurry vision Card: Reports: chest pain ( pressure when bending over); Denies: palpitations, irregular heart rhythm, edema, swelling of feet/ankles, lightheadedness, syncope, pre-syncope, dyspnea on exertion, orthopnea, leg pain with exertion or acrocyanosis Resp: Reports: pain on inspiration; Denies: dyspnea, productive cough, non-productive cough, wheezing, stridor, change in phlegm color, hemoptysis or chest congestion GI: Denies: abdominal pain, nausea, vomiting, heartburn or diarrhea : Denies: flank pain or dysuria Musc: Reports: neck pain ( pressure ); Denies: back pain, extremity pain, extremity swelling, joint pain, joint swelling, joint redness, joint warmth or joint stiffness Skin/Breast: Denies: rash Neuro: Denies: headache(s), numbness in extremities, weakness in extremities, sensory changes or dizziness PFSH ED PFSH: Medical History Postmenopausal Tachycardia Erosive osteoarthritis of both hands Immunization counseling Herpes zoster ophthalmicus resolved History of basal cell carcinoma Osteoarthritis, generalized Hypothyroidism Immunization counseling Seronegative rheumatoid arthritis of both hands High risk medication use Rheumatoid arthritis Surgical History No pertinent past surgical history Family History Other Arthritis Cancer Denies family history of Rheumatoid arthritis Diabetes Lupus Lung disease Stroke Social History (Updated 04/18/25 @ 14:54 by Sudhir Moyer MD) Smoking and tobacco/nicotine status: never used tobacco/nicotine Alcohol intake: never Substance/Drug Use: never Additional social history: 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 We discussed this with Sudhir Moyer MD on 04/18/2025 Marital status: Physical Exam Const: COMMON NORMALS: no acute distress, average body habitus, patient oriented x3, no limitations, healthy appearing, alert and well nourished GENERAL APPEARANCE: cooperative ORIENTATION/CONSCIOUSNESS: Yes awake, Yes oriented to person, Yes oriented to place and Yes oriented to time HENMT: COMMON NORMALS: normocephalic and atraumatic HEAD & SCALP: normal to inspection, normocephalic and atraumatic FACE & SINUS: normal facial exam and face symmetric Neck/C-Spine: COMMON NORMALS: full ROM, no lymphadenopathy, supple, no meningeal signs, no JVD, Thyroid normal and No carotid bruits THYROID: Thyroid normal Chest: COMMONS NORMALS: normal inspection of the chest and normal palpation of entire chest wall Resp: COMMON NORMALS: normal respiratory effort and clear to auscultation bilaterally AUSCULTATION: clear to auscultation bilaterally Cardio: COMMON NORMALS: no JVD, regular rate and regular rhythm RATE: regular rate RHYTHM: regular rhythm GI: COMMON NORMALS: Normal to inspection, nondistended, normoactive bowel sounds present, Soft to palpation, non-tender, No hepatosplenomegaly present and no masses PALPATION: Yes Soft to palpation and Yes No hepatosplenomegaly present : COMMON NORMALS: Yes no CVA tenderness BLADDER/KIDNEY EXAM: Yes no CVA tenderness Back/Pelvis: COMMON NORMALS: no CVA tenderness and thoracic and lumbar spine normal to inspection Extremity: COMMON NORMALS: normal to inspection, full ROM, capillary refill normal, no joint enlargement, no clubbing, cyanosis or edema, no calf tenderness and no pedal edema GENERAL: Yes normal exam except as noted Neuro: DORIAN COMA SCALE: document GCS findings Dorian coma scale eye opening: Spontaneous [place] coma scale verbal response: Orientated Dorian coma scale motor response: Obey commands Dorian coma scale total score: 15 COMMON NORMALS: patient oriented x3, CN's II-XII intact bilaterally, moves all extremities, no focal motor deficits, no sensory deficits noted and gait normal SENSORIUM/ORIENTATION: Yes alert, Yes oriented to person, Yes oriented to place and Yes oriented to time MENINGEAL SIGNS: Yes no meningeal signs SPEECH: speech normal GAIT: Yes Normal gait present MOTOR EXAM: 5/5 motor strength present throughout Skin: COMMON NORMALS: no rashes or lesions noted GENERAL SKIN EXAM: no rashes or lesions noted Course Consultations: Consultation #1: Dr. Moyer-accepts observation admission Vital Signs: Vital signs: Vital Signs Temperature 98.2 F 04/18/25 10:28 Pulse Rate 120 H 04/18/25 15:00 Respiratory Rate 16 04/18/25 12:33 Blood Pressure 120/90 04/18/25 15:00 Pulse Oximetry 95 04/18/25 15:00 Oxygen Delivery Me thod Room Air 04/18/25 15:00 MDM - Chest Pain Medical Decision Making Patient is a 74-year-old female here for complaint of pressure in her chest that worsened bending over. Initial concern for pericarditis. Spoke to Dr. Walton and work up was initiated based on complaint. She had initial EKG showing NSR but later went into atrial fibrillation with RVR. I do not see anywhere where she has a history of this. She is not on anticoagulation. She tells me she has a history of tachycardia . CTA was obtained and does show mulitple small right sided pulmonary emboli with evidence for right heart stain. I think with new onset atrial fibrillation with RVR and newly diagnosed PEs with heart strain it is reasonable for her to come into the hospital. Spoke to Dr. Walton who agrees. I spoke to hospitalist Dr. Moyer for admission. Will start her on Lovenox. Medical Records I reviewed the patient's medical records. Lab Data I reviewed the patient's lab results. 04/18/25 11:51 04/18/25 11:51 Radiology Impressions Chest CTA 04/18/25 10:44 IMPRESSION: 1.Multiple small pulmonary emboli within the 3rd order branches of the lower lobe right lung. 2. Fusiform aneurysm, ascending thoracic aorta as described. 3. Findings concerning for mild right heart strain,The RV/LV ratio is 0.93 (Abnormal is >0.9). ADDENDUM: 04/18/25 1411 THIS REPORT CONTAINS FINDINGS THAT MAY BE CRITICAL TO PATIENT CARE. The findings were verbally communicated via telephone conference with ANA CRISTINA LONDON at 2:10 PM LOFT WORKER PILE DRIVING on 04/18/2025. The findings were acknowledged and understood. Chest X-Ray 04/18/25 10:44 IMPRESSION: No acute findings. Neck CTA 04/18/25 10:44 IMPRESSION: No stenosis or occlusion. REFERENCES: NASCET CRITERIA. The degree of stenosis in the cervical segment of the internal carotid artery is based on NASCET criteria. Normal is no stenosis. Mild is less than 50% stenosis. Moderate is 50-69% stenosis. Severe is 70% to 99% stenosis. Total occlusion is no detectable patent lumen. Laboratory Results WBC 13.88 10^3/uL (3.29-11.43) H 04/18/25 11:51 RBC 4.81 10^6/uL (3.85-5.65) 04/18/25 11:51 Hgb 14.30 g/dL (11.27-16.99) 04/18/25 11:51 Hct 44.3 % (36-47) 04/18/25 11:51 MCV 92.1 fl (85-98) 04/18/25 11:51 MCH 29.7 pg (27-33) 04/18/25 11:51 MCHC 32.3 g/dL (30-55) 04/18/25 11:51 RDW 13.2 % (12.1-15.1) 04/18/25 11:51 Plt Count 216 10^3/cmm (157-399) 04/18/25 11:51 MPV 10.8 fL (7.4-10.4) H 04/18/25 11:51 Neut % (Auto) 72.7 % 04/18/25 11:51 Lymph % (Auto) 12.1 % 04/18/25 11:51 [place] % (Auto) 14.2 % 04/18/25 11:51 Eos % (Auto) 0.1 % 04/18/25 11:51 Baso % (Auto) 0.4 % 04/18/25 11:51 Neut # (Auto) 10.10 10^3/uL (1.8-7.7) H 04/18/25 11:51 Lymph # (Auto) 1.7 10^3/uL (0.8-4.8) 04/18/25 11:51 [place] # (Auto) 2.0 10^3/uL (0.2-0.9) H 04/18/25 11:51 Eos # (Auto) 0.0 10^3/uL (0.0-0.8) 04/18/25 11:51 Baso # (Auto) 0.1 10^3/uL (0.0-0.1) 04/18/25 11:51 Nucleated RBC % (auto) 0 % 04/18/25 11:51 Nucleated RBCs # 0.0 /100WBC 04/18/25 11:51 Sodium 134 mmol/L (136-145) L 04/18/25 11:51 Potassium 4.0 mmol/L (3.5-5.1) 04/18/25 11:51 Chloride 100 mmol/L (98-107) 04/18/25 11:51 Carbon Dioxide 20 mmol/L (22-29) L 04/18/25 11:51 Anion Gap 18.0 (5-19) 04/18/25 11:51 BUN 18 mg/dL (8-23) 04/18/25 11:51 Creatinine 0.7 mg/dL (0.5-0.9) 04/18/25 11:51 GFR Calculation Not Reportable 04/18/25 11:51 Glucose 113 mg/dL (65-115) 04/18/25 11:51 Calculated Osmolality 281 mOsm/kg (285-295) L 04/18/25 11:51 Calcium 9.3 mg/dL (8.5-10.5) 04/18/25 11:51 Phosphorus 3.2 mg/dL (2.5-4.5) 04/18/25 11:51 Magnesium 2.0 mg/dL (1.7-2.3) 04/18/25 11:51 Total Bilirubin 1.5 mg/dL (0.15-1.2) H 04/18/25 11:51 AST 20 U/L (0-32) 04/18/25 11:51 ALT 18 U/L (0-33) 04/18/25 11:51 Alkaline Phosphatase 80 U/L (35-105) 04/18/25 11:51 Troponin T Baseline 7 ng/L (0-10) 04/18/25 11:51 Troponin T 120 Minute 8.57 ng/L (0-10) 04/18/25 13:46 Delta Troponin T 1.57 ABS# (0-10) 04/18/25 13:46 C-Reactive Protein 103.8 mg/L (0.0-4.9) H 04/18/25 11:51 NT-Pro-B Natriuret Pep 1142 pg/mL (0-125) H 04/18/25 11:51 Total Protein 6.9 g/dL (6.6-8.7) 04/18/25 11:51 Albumin 4.3 g/dL (3.5-5.2) 04/18/25 11:51 Globulin 2.6 g/dL (1.3-4.6) 04/18/25 11:51 All radiology interpretation(s) finalized by discharge Discharge Plan Discharge Patient Disposition: Placed in Observation Admit Provider: Sudhir Moyer Clinical Impression: Atrial fibrillation with RVR Acute pulmonary embolism with acute cor pulmonale Qualifiers: Pulmonary embolism type: unspecified Qualified Code(s): I26.09 - Other pulmonary embolism with acute cor pulmonale Coding Level of Care Code ED Electromechanical Technician for g Fw Heart Score HEART Score Components History: Slightly Suspicous EKG: Normal Age: 65 or more yrs Risk Factors: 1 or 2 Risk Factors Troponin: Baseline Trop <16 ng/L HEART Score RESULT HEART Score: 3 Documented by User: Micah Walton MD 04/18/25 15:31 HPI - Chest Pain General: Chief Complaint: Chest Pain Stated Complaint: pressure in the throat/neck area Time Seen by Provider: 04/18/25 10:27 Related Data Home Medications ?Medication ?Instructions ?Recorded ?Confirmed flecainide 50 mg tablet 50 mg PO Q12H 12/17/19 04/18/25 tacrolimus 0.1 % topical ointment 1 applic topical .2XWEEKLY 01/11/20 04/18/25 cholecalciferol (vitamin D3) 25 50 mcg PO DAILY 04/19/20 04/18/25 mcg (1,000 unit) capsule aspirin 81 mg tablet,delayed 81 mg PO DAILY 09/26/21 04/18/25 release (Adult Aspirin Regimen) clobetasol 0.05 % topical ointment 1 applic topical .2XWEEKLY 04/18/25 04/18/25 cyanocobalamin (vitamin B-12) 1,000 mcg PO DAILY 04/18/25 04/18/25 1,000 mcg tablet (Vitamin B-12) levothyroxine 150 mcg tablet 150 mcg PO QAM 04/18/25 04/18/25 metoprolol succinate 25 mg 12.5 mg PO BID 04/18/25 04/18/25 tablet,extended release 24 hr Previous Rx's ?Medication ?Instructions ?Recorded estradiol 0.01% (0.1 mg/gram) 1 g vaginal .COMPLEX #42.5 grams 09/24/22 vaginal cream folic acid 1 mg tablet 1 mg PO DAILY #90 tabs 09/28/24 methotrexate sodium 2.5 mg tablet See Rx Instructions PO .week 02/02/25 Rheumatoid Arthritis #150 tabs prednisone 10 mg tablet See Rx Instructions PO DAILY joint 02/02/25 pain #30 tabs Allergies Allergy/AdvReac Type Severity Reaction Status Date / Time No Known Allergies Allergy Verified 02/02/25 15:19 [facility] ED PFS: Medical History Postmenopausal Tachycardia Erosive osteoarthritis of both hands Immunization counseling Herpes zoster ophthalmicus resolved History of basal cell carcinoma Osteoarthritis, generalized Hypothyroidism Immunization counseling Seronegative rheumatoid arthritis of both hands High risk medication use Rheumatoid arthritis Surgical History No pertinent past surgical history Family History Other Arthritis Cancer Denies family history of Rheumatoid arthritis Diabetes Lupus Lung disease Stroke Social History (Updated 04/18/25 @ 14:54 by Sudhir Moyer MD) Smoking and tobacco/nicotine status: never used tobacco/nicotine Alcohol intake: never Substance/Drug Use: never Additional social history: 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 We discussed this with Sudhir Moyer MD on 04/18/2025 Marital status: Physical Exam Neuro: DORIAN COMA SCALE: document GCS findings [place] coma scale total score: 15 Course Vital Signs: Vital signs: Vital Signs Temperature 98.2 F 04/18/25 10:28 Pulse Rate 120 H 04/18/25 15:00 Respiratory Rate 16 04/18/25 12:33 Blood Pressure 120/90 04/18/25 15:00 Pulse Oximetry 95 04/18/25 15:00 Oxygen Delivery Me thod Room Air 04/18/25 15:00 MDM - Chest Pain Medical Decision Making Patient is a 74-year-old female here for complaint of pressure in her chest that worsened bending over. Initial concern for pericarditis. Spoke to Dr. Walton and work up was initiated based on complaint. She had initial EKG showing NSR but later went into atrial fibrillation with RVR. I do not see anywhere where she has a history of this. She is not on anticoagulation. She tells me she has a history of tachycardia . CTA was obtained and does show mulitple small right sided pulmonary emboli with evidence for right heart stain. I think with new onset atrial fibrillation with RVR and newly diagnosed PEs with heart strain it is reasonable for her to come into the hospital. Spoke to Dr. Walton who agrees. I spoke to hospitalist Dr. Moyer for admission. Will start her on Lovenox. Saw patient above provide agree with her history and physical. Patient was found to have pulmonary emboli no signs of any severe heart strain. Did start her on Lovenox will admit to Dr. Springer to cardiac stepdown Lab Data 04/18/25 11:51 04/18/25 11:51 Radiology Impressions Chest CTA 04/18/25 10:44 IMPRESSION: 1.Multiple small pulmonary emboli within the 3rd order branches of the lower lobe right lung. 2. Fusiform aneurysm, ascending thoracic aorta as described. 3. Findings concerning for mild right heart strain,The RV/LV ratio is 0.93 (Abnormal is >0.9). ADDENDUM: 04/18/25 1411 THIS REPORT CONTAINS FINDINGS THAT MAY BE CRITICAL TO PATIENT CARE. The findings were verbally communicated via telephone conference with ANA CRISTINA LONDON at 2:10 PM LOFT WORKER [employer]LE [employer]IV[employer] on 04/18/2025. The findings were acknowledged and understood. Chest X-Ray 04/18/25 10:44 IMPRESSION: No acute findings. Neck CTA 04/18/25 10:44 IMPRESSION: No stenosis or occlusion. REFERENCES: NASCET CRITERIA. The degree of stenosis in the cervical segment of the internal carotid artery is based on NASCET criteria. Normal is no stenosis. Mild is less than 50% stenosis. Moderate is 50-69% stenosis. Severe is 70% to 99% stenosis. Total occlusion is no detectable patent lumen. Laboratory Results WBC 13.88 10^3/uL (3.29-11.43) H 04/18/25 11:51 RBC 4.81 10^6/uL (3.85-5.65) 04/18/25 11:51 Hgb 14.30 g/dL (11.27-16.99) 04/18/25 11:51 Hct 44.3 % (36-47) 04/18/25 11:51 MCV 92.1 fl (85-98) 04/18/25 11:51 MCH 29.7 pg (27-33) 04/18/25 11:51 MCHC 32.3 g/dL (30-55) 04/18/25 11:51 RDW 13.2 % (12.1-15.1) 04/18/25 11:51 Plt Count 216 10^3/cmm (157-399) 04/18/25 11:51 MPV 10.8 fL (7.4-10.4) H 04/18/25 11:51 Neut % (Auto) 72.7 % 04/18/25 11:51 Lymph % (Auto) 12.1 % 04/18/25 11:51 [place] % (Auto) 14.2 % 04/18/25 11:51 Eos % (Auto) 0.1 % 04/18/25 11:51 Baso % (Auto) 0.4 % 04/18/25 11:51 Neut # (Auto) 10.10 10^3/uL (1.8-7.7) H 04/18/25 11:51 Lymph # (Auto) 1.7 10^3/uL (0.8-4.8) 04/18/25 11:51 [place] # (Auto) 2.0 10^3/uL (0.2-0.9) H 04/18/25 11:51 Eos # (Auto) 0.0 10^3/uL (0.0-0.8) 04/18/25 11:51 Baso # (Auto) 0.1 10^3/uL (0.0-0.1) 04/18/25 11:51 Nucleated RBC % (auto) 0 % 04/18/25 11:51 Nucleated RBCs # 0.0 /100WBC 04/18/25 11:51 Sodium 134 mmol/L (136-145) L 04/18/25 11:51 Potassium 4.0 mmol/L (3.5-5.1) 04/18/25 11:51 Chloride 100 mmol/L (98-107) 04/18/25 11:51 Carbon Dioxide 20 mmol/L (22-29) L 04/18/25 11:51 Anion Gap 18.0 (5-19) 04/18/25 11:51 BUN 18 mg/dL (8-23) 04/18/25 11:51 Creatinine 0.7 mg/dL (0.5-0.9) 04/18/25 11:51 GFR Calculation Not Reportable 04/18/25 11:51 Glucose 113 mg/dL (65-115) 04/18/25 11:51 Calculated Osmolality 281 mOsm/kg (285-295) L 04/18/25 11:51 Calcium 9.3 mg/dL (8.5-10.5) 04/18/25 11:51 Phosphorus 3.2 mg/dL (2.5-4.5) 04/18/25 11:51 Magnesium 2.0 mg/dL (1.7-2.3) 04/18/25 11:51 Total Bilirubin 1.5 mg/dL (0.15-1.2) H 04/18/25 11:51 AST 20 U/L (0-32) 04/18/25 11:51 ALT 18 U/L (0-33) 04/18/25 11:51 Alkaline Phosphatase 80 U/L (35-105) 04/18/25 11:51 Troponin T Baseline 7 ng/L (0-10) 04/18/25 11:51 Troponin T 120 Minute 8.57 ng/L (0-10) 04/18/25 13:46 Delta Troponin T 1.57 ABS# (0-10) 04/18/25 13:46 C-Reactive Protein 103.8 mg/L (0.0-4.9) H 04/18/25 11:51 NT-Pro-B Natriuret Pep 1142 pg/mL (0-125) H 04/18/25 11:51 Total Protein 6.9 g/dL (6.6-8.7) 04/18/25 11:51 Albumin 4.3 g/dL (3.5-5.2) 04/18/25 11:51 Globulin 2.6 g/dL (1.3-4.6) 04/18/25 11:51 Discharge Plan Discharge Patient Disposition: Placed in Observation Admit Provider: Sudhir Moyer Clinical Impression: Atrial fibrillation with RVR Acute pulmonary embolism with acute cor pulmonale Qualifiers: Pulmonary embolism type: unspecified Qualified Code(s): I26.09 - Other pulmonary embolism with acute cor pulmonale Coding Level of Care Code ED Electromechanical Technician for Barrettg Sreedhar Heart Score HEART Score RESULT HEART Score: 3
--- NOTE | 2025-04-18 11:49 | ECG_ITS ---
[facility] Date: 2025-04-18 Pat Name: Colleen Longo Department: Room: Gender: Female School Speech Language Pathologist: : 1950 Requested By: Theresa Ruth Order Number: [id number] Igor MD: Nils Witt M.D. Measurements Intervals [place] Rate: 79 P: -25 OK: 185 QRS: 1 QRSD: 96 T: 45 QT: 372 QTc: 428 Interpretive Statements SINUS RHYTHM POSSIBLE RIGHT VENTRICULAR CONDUCTION DELAY [RSR (QR) IN V1/V2] EARLY REPOLARIZATION [ST ELEVATION WITH NORMALLY INFLECTED T-WAVE] Compared to ECG 05/20/2018 22:47:47 Early repolarization now present Electronically Signed On 04-18-2025 14:09:07 PUMP AND BLOWER OPERATOR by Nils Witt M.D. [email or web address]
[2025-04-18 11:57] LABS: Hematocrit 44.3 % (36-47); Hemoglobin 14.30 g/dL (11.27-16.99); Mean Corpuscular HGB Conc 32.3 g/dL (30-55); Mean Corpuscular Hemoglobin 29.7 pg (27-33); Mean Corpuscular Volume 92.1 fl (85-98); Nucleated Red Blood Cells % 0 %; Platelet Count 216 10^3/cmm (157-399); Red Blood Count 4.81 10^6/uL (3.85-5.65); White Blood Count 13.88 10^3/uL (3.29-11.43)
[2025-04-18 12:14] LABS: Troponin(5th) Baseline 7 ng/L (0-10)
[2025-04-18 12:33] LABS: Alanine Aminotransferase 18 U/L (0-33); Albumin Level 4.3 g/dL (3.5-5.2); Alkaline Phosphatase 80 U/L (35-105); Anion Gap 18.0 (5-19); Aspartate Amino Transferase 20 U/L (0-32); Blood Urea Nitrogen 18 mg/dL (8-23); Calcium 9.3 mg/dL (8.5-10.5); Carbon Dioxide 20 mmol/L (22-29); Chloride 100 mmol/L (98-107); Creatinine Clr Calc Pharmacy 63.7013; Globulin 2.6 g/dL (1.3-4.6); Glucose 113 mg/dL (65-115); NT Pro B Type Natriuretic Pept 1142 pg/mL (0-125); Osmolality Calculated 281 mOsm/kg (285-295); Potassium 4.0 mmol/L (3.5-5.1); Sodium 134 mmol/L (136-145); Total Protein 6.9 g/dL (6.6-8.7)
[2025-04-18] MEDS: iohexol 350 mg/mL 500 mL Btl (per mL) IV ×2 (12:59)
--- NOTE | 2025-04-18 13:49 | ECG_ITS ---
[facility] Test Date: 2025-04-18 Pat Name: Colleen Longo Department: Room: Gender: Female Story Editor: : 1950 Requested By: Theresa Ruth Order Number: [id number] Igor MD: Nils Witt M.D. Measurements Intervals [place] Rate: 113 P: 0 [place]: 0 QRS: 8 QRSD: 95 T: 17 QT: 328 QTc: 450 Interpretive Statements ATRIAL FIBRILLATION WITH RAPID VENTRICULAR RESPONSE POSSIBLE RIGHT VENTRICULAR CONDUCTION DELAY [RSR (QR) IN V1/V2] ABNORMAL RHYTHM ECG Compared to ECG 04/18/2025 10:35:20 Sinus rhythm no longer present Early repolarization no longer present Electronically Signed On 04-18-2025 14:13:22 WHEEL ALIGNER by Nils Witt M.D. [email or web address]
[2025-04-18 14:13] LABS: Troponin 5 2HR 8.57 ng/L (0-10); Troponin 5 2HR Delta 1.57 ABS# (0-10)
--- OUTSIDE RECORDS SUMMARY | 2025-04-18 14:26 | XMS_ITS | Encounter Summary ---
Author Organization [facility] Address [address] [place] [address] Care Team Providers Care Coroner Transport Technician Name Role Phone Rustam Trammell MD Primary Care Provider [phone] Encounter Details Date Type Department Care Team (Latest Contact Info) Description 09/20/1998 Outpatient Historical [facility] [place] [address] [place] [address] Tera Ness MD NO ADDRESS ON FILE Circumscribe scleroderma (Primary Dx) Social History Tobacco Use Types Packs/Day Years Used Date Smoking Tobacco: Never Assessed Comments Unknown Sex and Gender Information Value Date Recorded Sex Assigned at Not on file Legal Sex 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
--- OUTSIDE RECORDS SUMMARY | 2025-04-18 14:26 | XMS_ITS | Encounter Summary ---
Author Organization [facility] Address [address] [place] [address] Care Team Providers Care Stamping Press Operator Name Role Phone Rustam Trammell MD Primary Care Provider [phone] Encounter Details Date Type Department Care Team (Latest Contact Info) Description 01/13/2002 Outpatient Historical [facility] [place] [address] [place] [address] Tera Ness MD NO ADDRESS ON FILE Gynecologic examination (Primary Dx); Circumscribe scleroderma; FEMALE CLIMACTERIC STATE Social History Tobacco Use Types Packs/Day Years Used Date Smoking Tobacco: Never Assessed Comments Unknown Sex and Gender Information Value Date Recorded Sex Assigned at Not on file 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 Gender Identity Not on file Sexual Orientation Not on file documented as of this encounter Plan of Treatment Not on file documented as of this encounter Visit Diagnoses Diagnosis Gynecologic examination- Primary Gynecological examination Circumscribe scleroderma Circumscribed scleroderma Symptomatic menopausal or female climacteric states documented in this encounter Care Teams Stamping Press Operator Relationship Specialty Start Date End Date Rustam Trammell MD [address] [facility] [address] [place] [id number] PCP - General Family Practice 11/07/20 documented as of this encounter
--- OUTSIDE RECORDS SUMMARY | 2025-04-18 14:26 | XMS_ITS | Encounter Summary ---
Author Organization [facility] Address [address] [place] [address] Care Team Providers Care Piano Player Name Role Phone Rustam Trammell MD Primary Care Provider [phone] Encounter Details Date Type Department Care Team (Latest Contact Info) Description 12/08/2002 Outpatient Historical [facility] OBGYN-Head [place] [address] [place] [address] Tera Ness MD NO ADDRESS ON FILE Gynecologic examination (Primary Dx); SCREENING MAL NEOP-RECTUM Social History Tobacco Use Types Packs/Day Years Used Date Smoking Tobacco: Never Assessed Comments Unknown Sex and Gender Information Value Date Recorded Sex Assigned at Not on file Legal Sex Female 6:40 AM SIGHT MOUNTER Gender Identity Not on file Sexual Orientation Not on file documented as of this encounter Plan of Treatment Not on file documented as of this encounter Visit Diagnoses Diagnosis Gynecologic examination- Primary Gynecological examination Screening for malignant neoplasm of the rectum documented in this encounter Care Teams Piano Player Relationship Specialty Start Date End Date Rustam Trammell MD [address] [facility] 1 [place] [address] PCP - General Family Practice 11/07/20 documented as of this encounter
--- OUTSIDE RECORDS SUMMARY | 2025-04-18 14:26 | XMS_ITS | Encounter Summary ---
Author Organization [facility] Address [address] [place] [address] Care Team Providers Care Java Core Developer Name Role Phone Rustam Trammell MD Primary Care Provider [phone] Encounter Details Date Type Department Care Team (Latest Contact Info) Description 09/10/1997 Outpatient Historical [facility] OBAlbina [place] [address] [place] [address] Tera Ness MD NO ADDRESS ON FILE Circumscribe scleroderma (Primary Dx) Social History Tobacco Use Types Packs/Day Years Used Date Smoking Tobacco: Never Assessed Comments Unknown Sex and Gender Information Value Date Recorded Sex Assigned at Not on file Legal Sex Female 6:40 AM PROGRAM DIR Gender Identity Not on file Sexual Orientation Not on file documented as of this encounter Plan of Treatment Not on file documented as of this encounter Visit Diagnoses Diagnosis Circumscribe scleroderma- Primary Circumscribed scleroderma documented in this encounter Care Teams Java Core Developer Relationship Specialty Start Date End Date Rustam Trammell MD 5 [facility] 1 [place] [address] PCP - General Family Practice 11/07/20 documented as of this encounter
--- OUTSIDE RECORDS SUMMARY | 2025-04-18 14:26 | XMS_ITS | Encounter Summary ---
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
--- OUTSIDE RECORDS SUMMARY | 2025-04-18 14:26 | XMS_ITS | Encounter Summary ---
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
--- OUTSIDE RECORDS SUMMARY | 2025-04-18 14:26 | XMS_ITS | Encounter Summary ---
Author Organization [facility] Address [address] [place] [address] Care Team Providers Care Online Content Editor Name Role Phone Rustam Trammell MD Primary Care Provider [phone] Encounter Details Date Type Department Care Team (Late st Contact Info) Description 12/08/2002 Outpatient Historical [facility] OBNSonido Kulkarni [place] [address] [place] [address] Tera Ness MD NO ADDRESS ON FILE Social History Tobacco Use Types Packs/Day Years Used Date Smoking Tobacco: Never Assessed Comments Unknown Sex and Gender Information Value Date Recorded Sex Assigned at Not on file Legal Sex Female 6:40 AM FORM COVERER Gender Identity Not on file Sexual Orientation Not on file documented as of this encounter Plan of Treatment Not on file documented as of this encounter Visit Diagnoses Not on filedocumented in this encounter Care Teams Online Content Editor Relationship Specialty Start Date End Date Rustam Trammell MD 5 [facility] 1 [place] [phone] PCP - General Family Practice 11/07/20 documented as of this encounter
--- OUTSIDE RECORDS SUMMARY | 2025-04-18 14:26 | XMS_ITS | Encounter Summary ---
Author Organization [facility] Address [address] [place] [address] Care Team Providers Care Commercial Drafter Name Role Phone Rustam Trammell MD Primary Care Provider [phone] Encounter Details Date Type Department Care Team (Latest Contact Info) Description 03/23/2004 Outpatient Historical [facility] PRESCRIPTION EYEGLASS MAKER 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
--- OUTSIDE RECORDS SUMMARY | 2025-04-18 14:26 | XMS_ITS | Encounter Summary ---
Author Organization [facility] Address [address] [place] [address] Care Team Providers Care Admitting Supervisor Name Role Phone Rustam Trammell MD Primary Care Provider [phone] Encounter Details Date Type Department Care Team (Latest Contact Info) Description 12/23/2000 Outpatient Historical [facility] OBAlbina [place] [address] [place] [address] Tera Ness MD NO ADDRESS ON FILE Gynecologic examination (Primary Dx); Circumscribe scleroderma; Screening for malignant neoplasm of the rectum Social History Tobacco Use Types Packs/Day Years Used Date Smoking Tobacco: Never Assessed Comments Unknown Sex and Gender Information Value Date Recorded Sex Assigned at Not on file Legal Sex Female 6:40 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
--- OUTSIDE RECORDS SUMMARY | 2025-04-18 14:26 | XMS_ITS | Encounter Summary ---
Author Organization [employer] Address [address] [place] [address] Care Team Providers Care Tire Mold Tester Name Role Phone Rustam Trammell MD Primary Care Provider [phone] Encounter Details Date Type Department Care Team (Late st Contact Info) Description 09/03/2000 Outpatient Historical [facility] Social History Tobacco Use Types Packs/Day Years Used Date Smoking Tobacco: Never Assessed Comments Unknown Sex and Gender Information Value Date Recorded Sex Assigned at Not on file Legal Sex Female 6:40 AM RENTAL 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
--- OUTSIDE RECORDS SUMMARY | 2025-04-18 14:26 | XMS_ITS | Encounter Summary ---
Author Organization [facility] Address [address] [place] [address] Care Team Providers Care Radiology Receptionist Name Role Phone Rustam Trammell MD Primary Care Provider [phone] Encounter Details Date Type Department Care Team (Latest Contact Info) Description 2000 Outpatient Historical [facility] OBSANDOVALN-Head [place] [address] [place] [address] Trea Ness MD NO ADDRESS ON FILE Vaginitis and vulvovaginitis, unspecified (Primary Dx) Social History Tobacco Use Types Packs/Day Years Used Date Smoking Tobacco: Never Assessed Comments Unknown Sex and Gender Information Value Date Recorded Sex Assigned at Not on file Legal Sex Female 6:40 AM 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
--- OUTSIDE RECORDS SUMMARY | 2025-04-18 14:26 | XMS_ITS | Clinical Summary ---
Author Organization [facility] Address [address] [place] [address] Care Team Providers Care Train Braker Name Role Phone Unavailable Primary Care Provider [...] Abstract 02/26/2025 1:00 PM CDT Office Visit [facility] Opt[facility] [address] [place] [address] Corby Lyons, GAYE Fuchs' corneal dystrophy of both eyes (Primary Dx); Combined form of senile cataract of left eye; Dry eyes, bilateral; Hyperopia with regular astigmatism, bilateral 02/23/2025 External Device Data STL ABSTRACTION Provider, Abstract 02/09/2025 Orders Only [facility] [address] [facility] [address] [place] [address] Catia Hutton NP Mixed hyperlipidemia (Primary Dx); Supraventricular tachycardia; PVC (premature ventricular contraction); Syncope, unspecified syncope type; Sinus bradycardia 02/05/2025 Abstract [facility] [address] [address] Piero De MD 02/05/2025 Telephone [facility] [address] [address] Piero De MD Referral Request 02/04/2025 Telephone [facility] [address] [address] Piero De MD Referral Request 02/03/2025 Telephone [facility] [address] [facility] [address] [place] [address] Brooke Simpson, JÚNIOR-SPOOL WORKER 02/12/25 Calvin Appt Needs Rescheduled; Returning call from Last 3 Months Social History Tobacco Use Types Packs/Day Years Used Date Smoking Tobacco: Never Smokeless Tobacco: Never Tobacco Cessation:Counseling Given: Not Answered Comments Unknown Sex and Gender Information Value Date Recorded Sex Assigned at Not on file Legal Sex Female 12:56 AM CLASSICS TEACHER Gender Identity Not on file Sexual Orientation Not on file Last Filed Vital Signs Vital Sign Reading Time Taken Comments Blood Pressure 108/68 08/19/2023 12:57 PM CLASSICS TEACHER Pulse 94 08/19/2023 12:57 PM CLASSICS TEACHER Temperature - - Respiratory Rate - - Oxygen Saturation - - Inhaled Oxygen Concentration - - Weight 71.8 kg (158 lb 3.2 oz) 08/19/2023 12:57 PM CLASSICS TEACHER Height 167.6 cm (5' 6 ) 08/19/2023 12:57 PM CLASSICS TEACHER Body Mass Index 25.53 08/19/2023 12:57 PM CLASSICS TEACHER Plan of Treatment Upcoming Encounters Date Type Department Care Team (Late st Contact Info) Description 06/03/2025 8:30 AM CLASSICS TEACHER Office Visit [facility] Ophthalmology [place] [address] [place] [address] Piero De MD [address] [place] [address] 08/17/2025 12:40 PM CLASSICS TEACHER Office Visit [facility] [address] [place] [address] Louisa Penny MD [address] [place] [address] Brooke Simpson, JÚNIOR-SPOOL WORKER [address] [place] [address] Health Maintenance Due Date Last Done [...]
--- OUTSIDE RECORDS SUMMARY | 2025-04-18 14:26 | XMS_ITS | Clinical Summary ---
Author Organization [facility] Address [address] [place] [address] Care Team Providers Care Weight Tester Name Role Phone Rustam Trammell MD Primary Care Provider [phone] Medications triamcinolone acetonide (KENALOG) 0.1 % Ointment Apply to affected area 2 times daily. Active hydroxychloroqu ine (PLAQUENIL) 200 mg tablet Take 200 mg by mouth 2 times daily. Alternating between two tabs and one tab Active folic acid (FOLVITE) 1 mg tablet Take 1 mg by mouth daily. TWO TABS DAILY Active levothyroxine 137 mcg tablet Take 137 mcg by mouth daily director of early childhood. Take 1 tab 6 days per week Active levothyroxine 125 mcg tablet Take 125 mcg by mouth daily director of early childhood. 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
--- OUTSIDE RECORDS SUMMARY | 2025-04-18 14:27 | XMS_ITS | Encounter Summary ---
Author Organization [facility] Address [address] [place] [address] Care Team Providers Care Sr. Consultant Name Role Phone Rustam Trammell MD Primary Care Provider [phone] Encounter Details Date Type Department Care Team (Latest Contact Info) Description 10/05/1999 Outpatient Historical [facility] OBSANDOVALN-Head Shad [place] [address] [place] [address] Tera Ness MD NO ADDRESS ON FILE Gynecologic examination (Primary Dx); Vaginitis and vulvovaginitis, unspecified Social History Tobacco Use Types Packs/Day Years Used Date Smoking Tobacco: Never Assessed Comments Unknown Sex and Gender Information Value Date Recorded Sex Assigned at Not on file Legal Sex Female 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 Consultant Relationship Specialty Start Date End Date Rustam Trammell MD 805 [facility] 1 [place] [phone] PCP - General Family Practice 11/07/20 documented as of this encounter
--- NOTE | 2025-04-18 14:47 | PM.HP ---
Providers/Chief Complaint Admitting Physician: Sudhir Moyer MD Primary Care Provider: Rustam Trammell MD Chief Complaint: pressure in the throat/neck area History of Present Illness Colleen Longo is a 74 year old female has history of paroxysmal atrial fibrillation but had sinus tachycardia since college-age she had pressure in her neck starting 4 PM. This pressure was worse when bending over or leaning over. Patient reports irregular heartbeat taking metoprolol 12.5 mg twice daily and flecainide 50 mg twice daily heart rate typically runs 60s unless she flips into A-fib and then its 120. When it breaks she is back at 60. Symptoms were present all night and then this morning she had some chest discomfort she has had dyspnea exertion but no leg edema. She presented to the emergency department was found to have right lower lung pulmonary embolism and referred for admission after Lovenox injection CT scan of the chest shows the pulmonary embolism and lower RV is mildly enlarged compared to normal. Patient denies sleep apnea. EKG here showed sinus rhythm then atrial fibrillation with right ventricular conduction delay Patient states she has had rheumatoid arthritis for 13 years and been on methotrexate plus hydroxychloroquine. The hydroxychloroquine dose was 200 mg twice a day until it was stopped due to conflict with flecainide. Her methotrexate used to be 15 mg weekly but they want her to increase this to 8 or 10 tabs i.e. 20 mg or 25 mg weekly. She states she had liver trouble that she could see on her labs so stopped her meds for last 3 weeks. She has had worsened hand arthritis as well as pain in the elbows and shoulders. Patient denies that she is ever been on amiodarone Review of Systems Narrative: General Temperature 99.9 she states she usually runs 97. 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 Patient passed out 3 years ago was life flighted and found to have a subdural bleed seen at [place] and then followed till it resolved. I do not see that on our imaging record Hematologic no past history of blood clots in the legs or lungs Medications/Allergies Home Medications ?Medication ?Instructions ?Recorded ?Confirmed ?Last Taken ?Type flecainide 50 mg tablet 50 mg PO Q12H 12/17/19 04/18/25 04/18/25 History tacrolimus 0.1 % topical ointment 1 applic topical .2XWEEKLY 01/11/20 04/18/25 Unknown History cholecalciferol (vitamin D3) 25 50 mcg PO DAILY 04/19/20 04/18/25 04/17/25 History mcg (1,000 unit) capsule aspirin 81 mg tablet,delayed 81 mg PO DAILY 09/26/21 04/18/25 04/17/25 History release (Adult Aspirin Regimen) estradiol 0.01% (0.1 mg/gram) 1 g vaginal .COMPLEX #42.5 grams 09/24/22 04/18/25 Unknown Rx vaginal cream folic acid 1 mg tablet 1 mg PO DAILY #90 tabs 09/28/24 04/18/25 04/17/25 Rx methotrexate sodium 2.5 mg tablet See Rx Instructions PO .week 02/02/25 04/18/25 Unknown Rx Rheumatoid Arthritis #150 tabs prednisone 10 mg tablet See Rx Instructions PO DAILY joint 02/02/25 04/18/25 Unknown Rx pain #30 tabs clobetasol 0.05 % topical ointment 1 applic topical .2XWEEKLY 04/18/25 04/18/25 Unknown History cyanocobalamin (vitamin B-12) 1,000 mcg PO DAILY 04/18/25 04/18/25 04/17/25 History 1,000 mcg tablet (Vitamin B-12) levothyroxine 150 mcg tablet 150 mcg PO QAM 04/18/25 04/18/25 04/18/25 History metoprolol succinate 25 mg 12.5 mg PO BID 04/18/25 04/18/25 04/18/25 History tablet,extended release 24 hr Allergies Allergy/AdvReac Type Severity Reaction Status Date / Time No Known Allergies Allergy Verified 02/02/25 15:19 PFSH Acute PFSH: Medical History (Updated 04/18/25 @ 14:19 by CORINA Coto) Postmenopausal Tachycardia Erosive osteoarthritis of both hands Immunization counseling Herpes zoster ophthalmicus resolved History of basal cell carcinoma Osteoarthritis, generalized Hypothyroidism Immunization counseling Seronegative rheumatoid arthritis of both hands High risk medication use Rheumatoid arthritis Surgical History No pertinent past surgical history Family History Other Arthritis Cancer Denies family history of Rheumatoid arthritis Diabetes Lupus Lung disease Stroke Social History (Updated 04/18/25 @ 14:54 by Sudhir Moyer MD) Smoking and tobacco/nicotine status: never used tobacco/nicotine Alcohol intake: never Substance/Drug Use: never Additional social history: 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 We discussed this with Sudhir Moyer MD on 04/18/2025 Marital status: Vitals/I&O/Wt Last Vital Signs Temp 98.2 F 04/18/25 10:28 Pulse 84 04/18/25 10:28 Resp 15 04/18/25 10:28 BP 158/102 04/18/25 10:28 Pulse Ox 94 04/18/25 10:28 O2 Del Method Room Air 04/18/25 10:28 Weight last 48 hrs Weight 72.121 kg Physical Exam Narrative: General well-developed well-nourished female in no acute cardiopulmonary distress but heart monitor does show her heart rate 105-130 irregularly irregular Oropharynx Mallampati 1 Neck mild elevated JVD supple nontender CV irregular tachycardic rhythm no loud murmurs Lungs trace left basilar crackles otherwise clear with no wheezes Abdomen positive bowel tones soft nontender Calves no tenderness cords or pretibial edema Data 04/18/25 11:51 04/18/25 11:51 A&P Assessment and plan 1. Acute pulmonary embolism with acute cor pulmonale: Patient has been started on Lovenox. I will switch her over to apixaban at 11 PM. Will order echo to see if she has truly cor pulmonale 2. Atrial fibrillation with RVR: Will give 1 L fluid bolus then diltiazem 5 mg. Check magnesium and phosphorus. Replace if 3. Seronegative rheumatoid arthritis of both hands: She is off her methotrexate. Sounds like is not well-controlled and she may need to visit other medications now that she cannot be on hydroxychloroquine with flecainide. It looks like QT prolongation is a risk with hydroxychloroquine and any of the antiarrhythmic such as amiodarone flecainide or propafenone PDMP PDMP Reviewed: Not Reviewed Attestations Medical Necessity Statement*: Patient to the hospital with telemetry on stepdown unit and anticipated to require 1-2 midnight Coding Level of Care Code 69960 Diagnoses Acute pulmonary embolism with acute cor pulmonale I26.09 Atrial fibrillation with RVR I48.91 Seronegative rheumatoid arthritis of both hands M06.041; M06.042 Time Spent (min) 70
[2025-04-18 14:53] LABS: Magnesium 2.0 mg/dL (1.7-2.3)
[2025-04-18] MEDS: dilTIAZem 5 mg/mL SDV 5 mL IVP (15:58)
[2025-04-18] MEDS: metoprolol succinate ER (24 HR) 25 mg Tablet 12.5 MG PO (15:59)
[2025-04-18] MEDS: FLECAINIDE 50 MG TABLET PO (17:25)
[2025-04-18 18:00] LABS: Glucose Urine UA Negative (Normal); Nitrate Urine Negative (Negative)
[2025-04-18 18:06] LABS: Add Urine Microscopic? YES
--- NOTE | 2025-04-18 18:08 | ECG_ITS ---
[facility] 2025-[facility]18 Pat Name: Colleen Longo Department: Room: 102 Gender: Female Pack Room Operator: : 1950 Requested By: Theresa Ruth Order Number: [id number] Igor MD: Chetna Greer M.D. Measurements Intervals [place] Rate: 81 P: 0 [place]: 0 QRS: 8 QRSD: 106 T: 29 QT: 359 QTc: 418 Interpretive Statements ATRIAL FIBRILLATION POSSIBLE RIGHT VENTRICULAR CONDUCTION DELAY [RSR (QR) IN V1/V2] NONSPECIFIC T-WAVE ABNORMALITY ABNORMAL RHYTHM ECG Compared to ECG 04/18/2025 13:42:27 T-wave abnormality now present Electronically Signed On 04-20-2025 22:35:27 WEAPONS DESIGNER by Chetna Greer M.D. [email or web address]
[2025-04-18 18:14] LABS: Specific Gravity, Urine 1.031 (1.005-1.030)
[2025-04-18 18:27] LABS: Troponin 5 6HR 11.17 ng/L (0-10); Troponin 5 6HR Delta 4.17 ng/L (0-12)
[2025-04-19 03:39] LABS: Anion Gap 13.0 (5-19); Blood Urea Nitrogen 14 mg/dL (8-23); Calcium 8.6 mg/dL (8.5-10.5); Carbon Dioxide 24 mmol/L (22-29); Chloride 103 mmol/L (98-107); Creatinine Clr Calc Pharmacy 63.4099; Glucose 112 mg/dL (65-115); Osmolality Calculated 283 mOsm/kg (285-295); Potassium 4.0 mmol/L (3.5-5.1); Sodium 136 mmol/L (136-145)
[2025-04-19 04:00] VITALS: BP 98/62; PULSE 78; RESP 18; TEMP 37.3; O2SAT 93
[2025-04-19] MEDS: metoprolol succinate ER (24 HR) 25 mg Tablet 12.5 MG PO (05:30)
[2025-04-19] MEDS: FLECAINIDE 50 MG TABLET PO (06:53)
[2025-04-19 07:05] VITALS: BP 94/62; PULSE 80; RESP 19; TEMP 36.3; O2SAT 93
[2025-04-19 09:08] LABS: Estmated Average Glucose 97; Hemoglobin A1C 5.0 % (4.0-6.0)
--- NOTE | 2025-04-19 09:16 | PC.CHAP ---
Pastoral Care Encounter/Spiritual Assessment Type of Contact [x] Declined celery wrapper visit [] Patient/Family/Request visit [] Outpatient visit [] Follow-up visit [] Physician referral [] Code/Alert [x] Routine visit [] Staff referral [] Actively dying [] Patient sleeping [] Family support [] [] Out of room [] Palliative care [] [] Receiving care in room [] Pre-surgical visit [] Trauma [] Long length of stay [] ICU visit [] Other: Relational/Emotional Strength [] Patient feels connected with others/family/visitors/staff [] Distress [] Loneliness/isolation [] Abandonment Spirituality of Patient [] Person of Linda [] Attends Bahai of their Linda [] Believes in Prayer [] Reads Bible or Scientologist materials [] There are Spiritual issues to be addressed Skin Installer Interventions [x] Prayer [] Active listening [] Non-anxious presence [] Spiritual/emotional support [] Crisis/trauma care [] Spiritual counseling [] Bereavement support [] Provided bereavement packet [] Provided Bible/devotional materials [] Provided toy/stuffed animal, coloring book to patient or family member [] Provided Communion [] Anointing/Lilly [] Salvation [] Completed spiritual assessment [] Other: Impact on Illness or Injury [] Angry [] Fearful [] Anxious [] Often cries [] Exhaustion [] Unable to work [] Unable to attend latter day [] Unable to walk/stand [] Unable to read [] Unable to drive [] Unable to eat/drink [] Unable to sleep [] Unable to be with family [] Patient intubated [] Other: Summary Time spent with patient
[2025-04-19 09:18] LABS: Cholesterol 142 mg/dL (0-200); Free T4 Free Thyroxine 1.43 ng/dL (0.82-1.77); HDL Cholesterol 54 mg/dL (60-100); Thyroid Stimulating Hormone 0.83 uIU/mL (0.27-4.20); Triglycerides 58 mg/dL (0-150); VLDL Cholestrol Calculation 12 mg/dL (0-30)
[2025-04-19 09:39] LABS: Iron 20 ug/dL (37-145); Total Iron Binding Capacity 227 mcg/dl; Unsaturated Iron Binding 207 ug/dL (112-347)
[2025-04-19 09:55] LABS: Vitamin B12 801 pg/mL (232-1245)
[2025-04-19 11:14] VITALS: BP 98/52; PULSE 79; RESP 15; TEMP 37.8; O2SAT 93
[2025-04-19 11:32] VITALS: O2SAT 91; O2SAT 94
--- NOTE | 2025-04-19 11:59 | P.DS_ITS ---
Discharge Providers Date of Admission: 04/18/25 13:54 Date of Discharge: April 19, 2025 Attending Provider at Admission: Sudhir Moyer MD Attending Provider at Discharge: Olman Russell MD Primary Care Provider: Rustam Trammell MD Diagnoses at Discharge Discharge Diagnosis 1. Acute pulmonary embolism with acute cor pulmonale: 2. Atrial fibrillation with RVR: 3. Seronegative rheumatoid arthritis of both hands: Reason for Visit Reason for Visit: pressure in the throat/neck area Brief History: Per HPI Colleen Longo is a 74 year old female has history of paroxysmal atrial fibrillation but had sinus tachycardia since college-age she had pressure in her neck starting 4 PM. This pressure was worse when bending over or leaning over. Patient reports irregular heartbeat taking metoprolol 12.5 mg twice daily and flecainide 50 mg twice daily heart rate typically runs 60s unless she flips into A-fib and then its 120. When it breaks she is back at 60. Symptoms were present all night and then this morning she had some chest discomfort she has had dyspnea exertion but no leg edema. She presented to the emergency department was found to have right lower lung pulmonary embolism and referred for admission after Lovenox injection CT scan of the chest shows the pulmonary embolism and lower RV is mildly enlarged compared to normal. Patient denies sleep apnea. EKG here showed sinus rhythm then atrial fibrillation with right ventricular conduction delay Patient states she has had rheumatoid arthritis for 13 years and been on methotrexate plus hydroxychloroquine. The hydroxychloroquine dose was 200 mg twice a day until it was stopped due to conflict with flecainide. Her methotrexate used to be 15 mg weekly but they want her to increase this to 8 or 10 tabs i.e. 20 mg or 25 mg weekly. She states she had liver trouble that she could see on her labs so stopped her meds for last 3 weeks. She has had worsened hand arthritis as well as pain in the elbows and shoulders. Patient denies that she is ever been on amiodarone Hospital Course Hospital Course Patient was admitted to the hospital further evaluation and management of shortness of breath in setting of pulmonary embolism. There was concern for mild right heart strain on CTA on admission. Echocardiogram was done. Patient responded well to the treatment. Home O2 evaluation was done prior to discharge. Her heart rate remained stable on increased dose of metoprolol. She is been discharged hemodynamically stable condition on increased dose of metoprolol to 25 mg twice daily, Eliquis 10 mg twice a day for 1 week followed by 5 mg twice daily at least for next 6 months. Physical Exam Narrative: General well-developed well-nourished female in no acute cardiopulmonary distress but heart monitor does show her heart rate 105-130 irregularly irregular Oropharynx Mallampati 1 Neck mild elevated JVD supple nontender CV irregular tachycardic rhythm no loud murmurs Lungs trace left basilar crackles otherwise clear with no wheezes Abdomen positive bowel tones soft nontender Calves no tenderness cords or pretibial edema Discharge Data Studies Completed and Pending Completed Studies During Hospitalization Category Date Time Status CTA chest [CT angio chest PE protcl 92630] Stat Cat Scan 04/18/25 10:44 Completed CTA neck [CT angio neck 94949] Stat Cat Scan 04/18/25 10:44 Completed XR chest 1V portable [id number] Urgent Exams 04/18/25 10:44 Completed Pending at discharge Category Date Time Status Procalcitonin Routine Lab 04/19/25 11:59 Ordered CV. echo complete* [id number] Routine Ultrasound 04/19/25 15:00 Ordered Radiology Impressions Chest CTA 04/18/25 10:44 IMPRESSION: 1.Multiple small pulmonary emboli within the 3rd order branches of the lower lobe right lung. 2. Fusiform aneurysm, ascending thoracic aorta as described. 3. Findings concerning for mild right heart strain,The RV/LV ratio is 0.93 (Abnormal is >0.9). ADDENDUM: 04/18/25 1411 THIS REPORT CONTAINS FINDINGS THAT MAY BE CRITICAL TO PATIENT CARE. The findings were verbally communicated via telephone conference with ANA CRISTINA LONDON at 2:10 PM JAWBONE BREAKER on 04/18/2025. The findings were acknowledged and understood. Chest X-Ray 04/18/25 10:44 IMPRESSION: No acute findings. Neck CTA 04/18/25 10:44 IMPRESSION: No stenosis or occlusion. REFERENCES: NASCET CRITERIA. The degree of stenosis in the cervical segment of the internal carotid artery is based on NASCET criteria. Normal is no stenosis. Mild is less than 50% stenosis. Moderate is 50-69% stenosis. Severe is 70% to 99% stenosis. Total occlusion is no detectable patent lumen. Laboratory Results WBC 13.88 10^3/uL (3.29-11.43) H 04/18/25 11:51 RBC 4.81 10^6/uL (3.85-5.65) 04/18/25 11:51 Hgb 14.30 g/dL (11.27-16.99) 04/18/25 11:51 Hct 44.3 % (36-47) 04/18/25 11:51 MCV 92.1 fl (85-98) 04/18/25 11:51 MCH 29.7 pg (27-33) 04/18/25 11:51 MCHC 32.3 g/dL (30-55) 04/18/25 11:51 RDW 13.2 % (12.1-15.1) 04/18/25 11:51 Plt Count 216 10^3/cmm (157-399) 04/18/25 11:51 MPV 10.8 fL (7.4-10.4) H 04/18/25 11:51 Neut % (Auto) 72.7 % 04/18/25 11:51 Lymph % (Auto) 12.1 % 04/18/25 11:51 [place] % (Auto) 14.2 % 04/18/25 11:51 Eos % (Auto) 0.1 % 04/18/25 11:51 Baso % (Auto) 0.4 % 04/18/25 11:51 Neut # (Auto) 10.10 10^3/uL (1.8-7.7) H 04/18/25 11:51 Lymph # (Auto) 1.7 10^3/uL (0.8-4.8) 04/18/25 11:51 [place] # (Auto) 2.0 10^3/uL (0.2-0.9) H 04/18/25 11:51 Eos # (Auto) 0.0 10^3/uL (0.0-0.8) 04/18/25 11:51 Baso # (Auto) 0.1 10^3/uL (0.0-0.1) 04/18/25 11:51 Nucleated RBC % (auto) 0 % 04/18/25 11:51 Nucleated RBCs # 0.0 /100WBC 04/18/25 11:51 Sodium 136 mmol/L (136-145) 04/19/25 02:57 Potassium 4.0 mmol/L (3.5-5.1) 04/19/25 02:57 Chloride 103 mmol/L (98-107) 04/19/25 02:57 Carbon Dioxide 24 mmol/L (22-29) 04/19/25 02:57 Anion Gap 13.0 (5-19) 04/19/25 02:57 BUN 14 mg/dL (8-23) 04/19/25 02:57 Creatinine 0.7 mg/dL (0.5-0.9) 04/19/25 02:57 GFR Calculation Not Reportable 04/19/25 02:57 Glucose 112 mg/dL (65-115) 04/19/25 02:57 Estimat Average Glucose 97 04/19/25 02:57 Hemoglobin A1c 5.0 % (4.0-6.0) 04/19/25 02:57 Calculated Osmolality 283 mOsm/kg (285-295) L 04/19/25 02:57 Calcium 8.6 mg/dL (8.5-10.5) 04/19/25 02:57 Phosphorus 3.2 mg/dL (2.5-4.5) 04/18/25 11:51 Magnesium 2.0 mg/dL (1.7-2.3) 04/18/25 11:51 Iron 20 ug/dL (37-145) L 04/19/25 02:57 TIBC 227 mcg/dl 04/19/25 02:57 % Saturation 8.8 % (20-50) L 04/19/25 02:57 Unsat Iron Binding 207 ug/dL (112-347) 04/19/25 02:57 Total Bilirubin 1.5 mg/dL (0.15-1.2) H 04/18/25 11:51 AST 20 U/L (0-32) 04/18/25 11:51 ALT 18 U/L (0-33) 04/18/25 11:51 Alkaline Phosphatase 80 U/L (35-105) 04/18/25 11:51 Troponin T Baseline 7 ng/L (0-10) 04/18/25 11:51 Troponin T 120 Minute 8.57 ng/L (0-10) 04/18/25 13:46 Delta Troponin T 1.57 ABS# (0-10) 04/18/25 13:46 Troponin T Hi Sens 6Hr 11.17 ng/L (0-10) H 04/18/25 17:55 Troponin T Hi Sens 6Hr Delta 4.17 ng/L (0-12) 04/18/25 17:55 C-Reactive Protein 103.8 mg/L (0.0-4.9) H 04/18/25 11:51 NT-Pro-B Natriuret Pep 1142 pg/mL (0-125) H 04/18/25 11:51 Total Protein 6.9 g/dL (6.6-8.7) 04/18/25 11:51 Albumin 4.3 g/dL (3.5-5.2) 04/18/25 11:51 Globulin 2.6 g/dL (1.3-4.6) 04/18/25 11:51 Triglycerides 58 mg/dL (0-150) 04/19/25 02:57 Cholesterol 142 mg/dL (0-200) 04/19/25 02:57 LDL Cholesterol, Calc 76 mg/dL (50-129) 04/19/25 02:57 Total VLDL Cholesterol 12 mg/dL (0-30) 04/19/25 02:57 HDL Cholesterol 54 mg/dL (60-100) L 04/19/25 02:57 Cholesterol/HDL Ratio 2.63 mg/dL (0.0-4.40) 04/19/25 02:57 Vitamin B12 801 pg/mL (232-1245) 04/19/25 02:57 TSH 0.83 uIU/mL (0.27-4.20) 04/19/25 02:57 Free T4 1.43 ng/dL (0.82-1.77) 04/19/25 02:57 Urine Color Yellow (Yellow) 04/18/25 16:35 Urine Appearance Clear (CLEAR) 04/18/25 16:35 Urine pH 6.5 (5-7) 04/18/25 16:35 Ur Specific [place] 1.031 (1.005-1.030) H 04/18/25 16:35 Urine Protein Negative (Negative) 04/18/25 16:35 Urine Glucose (UA) Negative (Normal) 04/18/25 16:35 Urine Ketones Negative (Negative) 04/18/25 16:35 Urine Blood 2+ (Negative) A 04/18/25 16:35 Urine Nitrate Negative (Negative) 04/18/25 16:35 Urine Bilirubin Negative (Negative) 04/18/25 16:35 Urine Urobilinogen 0.2 mg/dL (Negative) 04/18/25 16:35 Ur Leukocyte Esterase Negative (Negative) 04/18/25 16:35 Urine RBC 6-10 /hpf (0-2) 04/18/25 16:35 Urine WBC 0-5 /hpf (0-5) 04/18/25 16:35 Ur Squamous Epith Cells 0-5 /hpf (0-5) 04/18/25 16:35 Amorphous Sediment Not Reportable 04/18/25 16:35 Urine Bacteria None seen /hpf (NONE) 04/18/25 16:35 Hyaline Casts 0-4 /lpf H 04/18/25 16:35 Vitals Last Vital Signs Temp 100.1 F H 04/19/25 11:14 Pulse 79 04/19/25 11:14 Resp 15 04/19/25 11:14 BP 98/52 04/19/25 11:14 Pulse Ox 94 04/19/25 11:32 O2 Del Method Room Air 04/19/25 11:14 Discharge Plan Discharge Patient Disposition: Home Condition: Stable Prescriptions: New Eliquis 5 mg tablet 5 mg PO BID Qty: 60 0RF Rx Instructions: 10 mg BID for 1 week f/b 5 mg bid levofloxacin 750 mg tablet 750 mg PO Q24H 5 Days Qty: 5 0RF Continued aspirin [Adult Aspirin Regimen] 81 mg tablet,delayed release (DR/EC) 81 mg PO DAILY flecainide 50 mg tablet 50 mg PO Q12H cholecalciferol (vitamin D3) 25 mcg (1,000 unit) capsule 50 mcg PO DAILY tacrolimus 0.1 % ointment 1 applic TOPICAL .2XWEEKLY estradiol 0.01 % (0.1 mg/gram) cream 1 g VAGINAL .COMPLEX Qty: 42.5 4RF Rx Instructions: insert 1 g vaginal twice weekly folic acid 1 mg tablet 1 mg PO DAILY Qty: 90 1RF methotrexate sodium 2.5 mg tablet See Rx Instructions PO .week Qty: 150 0RF Rx Instructions: Split dose.. take 10 tabs on the same day once a week, take 5 tabs in the AM and 5 tabs in the PM prednisone 10 mg tablet See Rx Instructions PO DAILY Qty: 30 1RF Rx Instructions: Take 1 tablet by mouth daily for 5-7 days as needed for joint pain flare. cyanocobalamin (vitamin B-12) [Vitamin B-12] 1,000 mcg Tablet 1,000 mcg PO DAILY levothyroxine 150 mcg tablet 150 mcg PO QAM clobetasol 0.05 % ointment 1 applic TOPICAL .2XWEEKLY Changed metoprolol succinate 25 mg tablet extended release 24 hr 25 mg PO BID Qty: 60 0RF Referrals: Rustam Trammell MD [Primary Care Provider, [facility]] - 04/23/25 9:45 am Discharge Diet: Cardiac Discharge Activity: Resume usual activity and Increase activity as tolerated Patient Instructions: Levofloxacin (By mouth), Apixaban (By mouth) (Eliquis), A-fib (Atrial Fibrillation) (DC), Spontaneous Pneumothorax (ED), Rheumatoid Arthritis (DC), Opioid Safety, Patient Portal & Krystina Instructions Activity Restrictions/Additional Instructions: Follow-up with a primary care provider within next 1 week. Take Eliquis 10 mg twice daily for 1 week followed by 5 mg twice daily. Please check your blood pressures daily at home and down with pressure diary. Follow-up with your primary care provider with a blood pressure diary further adjustment of antihypertensive as needed. Dose of metoprolol has been changed to 25 mg twice daily for now. Discharge Attestations Time Spent in Discharge Care*: greater than 30 min Specific Discharge Activities: educating patient, educating and/or supporting family/caregiver, discussing with pcp/other providers, discussing with outsole caser/social workers/dc planners, documenting/other paperwork and evaluating patient/reviewing data Status at Discharge: Cognitive status at discharge: cognitively intact , Behavioral status at discharge: cooperative , Functional status at discharge: independent ambulation , Overall status at discharge: patient is back to baseline Quality Metrics Clinical Quality Measures [ Venous Thromboembolism { Contraindication to Overlap Therapy: None; Overlap threrpy ordered; VTE Discharge Education: Education about anticoagulant therapy/Care Notes given, Education about treatment options/disease process, M edication side effects education, INR/lab monitoring education as applicable, Follow-up arranged, Other; Deep Vein Thrombosis/Pulmonary Embolism Present on Admission: Yes;}] Coding Level of Care Code 65569 Total time (in minutes) for Discharge: 65 Diagnoses Acute pulmonary embolism with acute cor pulmonale I26.09 Pulmonary embolism type: unspecified Atrial fibrillation with RVR I48.91 Seronegative rheumatoid arthritis of both hands M06.041; M06.042
--- NOTE | 2025-04-19 12:06 | PC.SOCIAL ---
Did not qualify for O2. Pt has a home O2 eval & did not qualify for any O2.
[2025-04-19 12:38] LABS: Procalcitonin 0.25 ng/mL (0-0.5)
--- NOTE | 2025-04-19 15:00 | USCV_ITS ---
Colleen Longo Age: 74 Gender: F : 1950 Exam Date: 04/19/2025 12:35 Ordering Phys: Sudhir Moyer MD Technologist: DAMION Exam Location[place] [facility] [place] Indication: PE and Afib, BP: 98 / 52 HR: 72 Rhythm: Sinus Technical Quality: Adequate MEASUREMENTS (Male / Female) Normal Values 2D ECHO LV Diastolic Diameter PLAX 5.2 cm 4.2 - 5.9 / 3.9 - 5.3 cm IVS Diastolic Thickness 0.8 cm 0.6 - 1.0 / 0.6 - 0.9 cm IVS Systolic Thickness 0.9 cm LVPW Diastolic Thickness 1.0 cm 0.6 - 1.0 / 0.6 - 0.9 cm LVPW Systolic Thickness 1.0 cm LVOT Diameter 2.0 cm LV Ejection Fraction 2D Teich 35.7 % LV Ejection Fraction MOD 4C 72.1 % LV Ejection Fraction MOD 2C 66.1 % LV Ejection Fraction 2C AL 68.3 % LA Diameter 3.1 cm RA Systolic Volume 4C AL 27.4 ml RA Systolic Volume 4C MOD 26.6 ml LA Sys Volume AL 38.7 cm cubed LA Sys Volume Index AL 21.3 cm cubed/m squared Aorta at Sinotubular Diameter 2.8 cm IVC Diameter 1.3 cm M-MODE LA Ao Ratio MM 1.0 AV Cusp Separation MM 1.7 cm DOPPLER AV Peak Velocity 119.0 cm/s LVOT Peak Velocity 118.0 cm/s AV Area Cont Eq vti 3.6 cm squared AV Area Cont Eq pk 3.1 cm squared MV Peak Velocity 85.0 cm/s MV Area PHT 4.4 cm squared Mitral E to A Ratio 1.3 TR Peak Velocity 177.0 cm/s TR Peak Gradient 12.5 mmHg TV Peak E Velocity 69.0 cm/s PV Peak Velocity 88.0 cm/s FINDINGS Left Ventricle Normal left ventricular size and systolic function, EF 68%.mild left ventricular hypertrophy. . No regional wall motion abnormalities. Right Ventricle Normal right ventricular size and systolic function. Right Atrium Normal right atrial size. Left Atrium Normal left atrial size. IA Septum Appears to be intact Mitral Valve Trace mitral valve regurgitation. Aortic Valve No gross abnormalities no Tricuspid Valve No gross abnormalities noted Pulmonic Valve Pulmonic valve not well visualized. Pericardium No pericardial effusion. Aorta Normal aortic annulus size. IVC Normal inferior vena cava. CONCLUSIONS Normal left ventricular size and systolic function, EF 68%.mild left ventricular hypertrophy. . No regional wall motion abnormalities. Trace mitral valve regurgitation. There are no intracardiac masses. There is no pericardial effusion. Compared to the previous study from 08-18-19 17, there may not be significant change. Dr Chetna Greer MD FACC (Electronically Signed) Final Date: 19 April 2025 16:09 S
[2025-04-19 15:50] VITALS: BP 96/82; PULSE 86; RESP 12; TEMP 37.2; O2SAT 95
[2025-04-19 18:03] VITALS: BP 96/82; PULSE 86; RESP 12; TEMP 37.2; O2SAT 94
== END 2025-04-19 18:04 | disposition home or self-care (01) ==
LOC: ER 14:19 → CSU 14:24
PROVIDERS: Admitting Provider Internal Medicine; Emergency Provider Physician Assistant; PCP Family Medicine; Visit Provider Student in an Organized Health Care Education/Training Program
DX: I26.09 Other pulmonary embolism with acute cor pulmonale (principal); I48.91 Unspecified atrial fibrillation; M06.041 Rheumatoid arthritis without rheumatoid factor, right hand; M06.042 Rheumatoid arthritis without rheumatoid factor, left hand; Z79.82 Long term (current) use of aspirin; R00.0 Tachycardia, unspecified; E03.9 Hypothyroidism, unspecified; Z85.828 Personal history of other malignant neoplasm of skin
CPT/HCPCS: 36415; 70498; 71045; 71275; 80048; 80053; 80061; 81001; 82607; 83036; 83540; 83550; 83735; 83880; 84100; 84145; 84439; 84443; 84484; 85025; 86140; 93005; 93306; 94664; 94760; 96372; 96374; 99285; G0378; J1650; J3490; J7030; J9999

== ENCOUNTER 2025-05-05 13:01 | Outpatient (CLI) | payer MEDICARE, SELFPAY ==
[2025-05-05 13:55] LABS: Hematocrit 42.4 % (36-47); Hemoglobin 13.40 g/dL (11.27-16.99); Mean Corpuscular HGB Conc 31.6 g/dL (30-55); Mean Corpuscular Hemoglobin 29.5 pg (27-33); Mean Corpuscular Volume 93.2 fl (85-98); Nucleated Red Blood Cells % 0 %; Platelet Count 265 10^3/cmm (157-399); Red Blood Count 4.55 10^6/uL (3.85-5.65); White Blood Count 6.41 10^3/uL (3.29-11.43)
[2025-05-05 15:24] LABS: Alanine Aminotransferase 20 U/L (0-33); Albumin Level 3.9 g/dL (3.5-5.2); Alkaline Phosphatase 81 U/L (35-105); Aspartate Amino Transferase 20 U/L (0-32); Globulin 3.2 g/dL (1.3-4.6); Total Protein 7.1 g/dL (6.6-8.7)
== END 2025-05-05 13:02 | disposition home or self-care (01) ==
PROVIDERS: PCP Family Medicine; Visit Provider Internal Medicine Rheumatology
DX: M06.041 Rheumatoid arthritis without rheumatoid factor, right hand (principal); M06.042 Rheumatoid arthritis without rheumatoid factor, left hand; Z79.899 Other long term (current) drug therapy
CPT/HCPCS: 80076; 82565; 85025; 85651; 86140

== ENCOUNTER 2025-05-27 19:29 | Emergency (ER) | payer MEDICARE, SELFPAY ==
--- OUTSIDE RECORDS SUMMARY | 2025-05-25 09:30 | XMS_ITS | Encounter Summary ---
Author Organization [facility] Address [address] [place] [address] Care Team Providers Care Stone And Plate Preparer Apprentice Name Role Phone Unavailable Primary Care Provider Unavailabl e Reason for Visit * Reason Comments Follow Up Encounter Details Date Type Department Care Team (Late st Contact Info) Description 05/25/2025 9:30 AM MILL REPRESENTATIVE Office Visit [facility] [address] [place] [phone] Louisa Penny MD [address] [place] [phone] Carlin Ba, ROBBY [address] [place] [phone] Paroxysmal atrial fibrillation (CMS/HCC) (Primary Dx); Pulmonary embolism, unspecified chronicity, unspecified pulmonary embolism type, unspecified whether acute cor pulmonale present (CMS/HCC); Aneurysm of ascending aorta without rupture Social History Tobacco Use Types Packs/Day Years Used Date Smoking Tobacco: Never Smokeless Tobacco: Never Comments Unknown Sex and Gender Information Value Date Recorded Sex Assigned at Not on file Legal Sex Female 12:56 AM MILL REPRESENTATIVE Gender Identity Not on file Sexual Orientation Not on file documented as of this encounter Last Filed Vital Signs Vital Sign Reading Time Taken Comments Blood Pressure 100/84 05/25/2025 9:44 AM MILL REPRESENTATIVE Pulse 97 05/25/2025 9:44 AM MILL REPRESENTATIVE Temperature - - Respiratory Rate - - Oxygen Saturation - - Inhaled Oxygen Concentration - - Weight 71.8 kg (158 lb 3.2 oz) 05/25/2025 9:44 A M MILL REPRESENTATIVE Height 167.6 cm (5' 6 ) 05/25/2025 9:44 AM MILL REPRESENTATIVE Body Mass Index 25.53 05/25/2025 9:44 AM MILL REPRESENTATIVE documented in this encounter Progress Notes * Carlin Ba, ANP - 05/25/2025 9:30 AM CST [facility] Cardiology Electrophysiology Outpatient Note Progress Note 05/25/2025 Chief Complaint Patient presents with Follow Up EP director telemetry: Dr. Penny HPI: Colleen Longo is a 74 y.o. female who has a past medical history significant for PSVT, syncope, PVC, sinus bradycardia most currently A-fib, pulmonary embolism and right heart strain. Patient currently anticoagulated on Eliquis. SUBJECTIVE: Patient with recent EP cardiology visit April 30, 2025 after atrial fibrillation noticed whilehospitalized at OSH for PE with heart strain. Patient has EM since 04/30/2025 and results are pending completion. Requested records to be faxed over from [facility]. She has on Eliquis for pulmonary embolism with right heart strain, and now CVA protection for AF. Pleasant female back in office with complaints of not feeling herself when HR > 85. Patient checks her BP and HR daily. Heart rate has been < 120. States she feels better when heart rate < 85. EKG today, 05/25/2025, showed SR with PAC, incomplete RBBB, and HR of 97. Her symptoms include occasional short of breath, neck pressure, and easily fatigued. No complaints of chest pain, syncope, pa lpitations. Patient states she has been dealing with tachycardia since college. We discussed that her current symptoms may be related to the pulmonary embolism with right heart strain. Event monitor will be completed in about 2 weeks for further investigation. Meanwhile, she was encouraged to stay hydrated and continue taking her Eliquis. Discussed that we may be able to increase metoprolol if her blood pressure improves with hydration. She is on 12.5 mg of metoprolol BID and 50 mg of flecainide BID per patient request. She also had questions about her methotrexate and Plaquenil for which shewas encouraged to reach out to her product development carpenter. Requested patient fax over her medical record from [facility]. Cardiac Medications: Eliquis 5 mg twice daily Flecainide 50 mg 3 times daily, declined switch to 100mg BID with Arcadio CANO Metoprolol succinate 12.5 mg twice daily Allergies Allergen Reactions Adhesive Tape-Silicones Rash Social History Tobacco Use Smoking status: Never Smokeless tobacco: Never Substance Use Topics Alcohol use: Not on file Review of Systems: 10 point ROS negative unless otherwise noted in HPI. OBJECTIVE: BP 100/84 Pulse 97 Ht 5' 6 (1.676 m) Wt 71.8 kg (158 lb 3.2 oz) BMI 25.53 kg/m?? General appearance: well-developed, well-nourished, in no acute distress Skin: warm and dry Neck: supple, no JVD, normal carotid upstroke, no carotid bruits Lungs: clear to auscultation bilaterally Heart: normal S1 and S2, without significant murmurs, clicks, rubs or gallops; regular rate and rhythm Extremities: no cyanosis, clubbing or edema Neurologic: alert and oriented, normal affect 12 Lead EKG: Rhythm: Sinus rhythm with PAC, incomplete RBBB, nonspecific T wave abnormality, ventricular rate 97 bpm, MN interval 184 ms, QRS duration 92 ms, QTc 441 ms ASSESSMENT/PLAN: 74 y.o. female, never had myocardial infarction or stroke. Never had diabetes, hypertension, or hyperlipidemia. The patient had palpitation for at least over 15 years with EF normal by echo in 2017, documented some short runs of atrial tachycardia, possible supraventricular tachycardia. From Dr. Greer's note, the patient has a compliancy issue with medication. PSVT. From the clinical presentation and previous study, I think the patient has at least two different kinds of arrhythmia, one is short runs of atrial tachycardia, possible flutter. Another one is supraventricular tachycardia. Discussed option to increase Flecainide due to frequent palpitations on previous visit however and opted to continue Flecainide 50 mg PO BID for now. She is on Toprol XL 12.5 mg PO BID. Syncope. In 2018, the patient had one episode of syncope, etiology unclear, but that is only one episode and the patient had several monitors in 2017 and 2018, both does not show any critical arrhythmia. She was told that if she had any more syncope, then loop recorder or an EP study will need to be considered. Denies recurrence during today's visit. PVC/PAC. The patient does have occasional PVC, PAC and the PVC is not outflow tract PVC, but does not have too much symptom at this time related to PVC/PAC, continue Tambocor and metoprolol Sinus marce on previous appointment: No symptoms. No indication for PPM. Pulmonary embolism with right heart strain. On Eliquis. May be contributing to her symptoms of not feeling well with high heart rate Atrial fibrillation, was noticed during hospitalization for PE. Currently in sinus rhythm. Will need to follow-up on her 4-week event monitor when complete. She is on Eliquis either way. Discussed wemay be able to increase her metoprolol if blood pressure improves with adequate hydration. Aneurysm of ascending aorta without rupture, requested patient to fax over records. 3 month remote check Office visit in 3 months and prn Discussed cardioprotective measures and heart-healthy lifestyle Laura Ba, [facility] This documentation was created by [employer] route vending machine servicer software (known for inherent route vending machine servicer error) using Dim[employer] D[employer]. Effort has been done to assure accuracy of route vending machine servicer. Any obvious errors or omissions should be clarified with the author of the document. REPRESENTATIVE documented in this encounter Procedure Notes * Carlin Ba ANP - 05/25/2025 12:02 PM CSTAssociated Order(s): CARDIAC EVENT MONITOR Procedure(s): MN XTRNL PT ACTIVATED ECG RECORD MONITOR 30 DAYS Pre-Procedure Diagnose(s): Atrial fibrillation, unspecified type (CMS/HCC) 12 Lead EKG: Rhythm: Sinus rhythm with PAC, incomplete RBBB, nonspecific T wave abnormality, ventricular rate 97 bpm, MN interval 184 ms, QRS duration 92 ms, QTc 441 ms REPRESENTATIVE documented in this encounter Miscellaneous Notes * Patient Instructions - Carlin Ba ANP - 05/25/2025 10:20 AM MILL REPRESENTATIVE Please stay hydrated Monitor BP daily Continue eliquis for your pulmonary embolism We will see what the event monitor shows Your EKG today looks great and you are in sinus rhythm REPRESENTATIVE documented in this encounter Plan of Treatment Upcoming Encounters Date Type Department Care Team (Late st Contact Info) Description 08/23/2025 1:00 PM CDT Office Visit [facility] [address] [place] [phone] Louisa Penny MD [address] [place] [phone] Carlin Ba ANP [address] [place] [phone] documented as of this encounter Procedures Procedure Name Priority Date/Time Associated Diagnosis Comments MN XTRNL PT ACTIVATED ECG RECORD MONITOR 30 DAYS Routine 05/25/2025 12:02 PM MILL REPRESENTATIVE Atrial fibrillation, unspecified type (CMS/HCC) documented in this encounter Visit Diagnoses Diagnosis Paroxysmal atrial fibrillation (CMS/HCC)- Primary Atrial fibrillation Pulmonary embolism, unspecified chronicity, unspecified pulmonary embolism type, unspecified whether acute cor pulmonale present (CMS/HCC) Aneurysm of ascending aorta without rupture documented in this encounter
[2025-05-27] VITALS (9 sets, daily range): BP systolic 103–120; BP diastolic 65–86; PULSE 90–141; RESP 20–29; TEMP 37.2; O2SAT 93–98; BMI 25.9
--- NOTE | 2025-05-27 19:36 | ECG_ITS ---
[employer] Test Date: 2025-05-27 Pat Name: Colleen Longo Department: Room: Gender: Female Librarian Special Collections: : 1950 Requested By: Magui Elizabeth Order Number: [id number] Reading MD: EUNICE LOCKHART Measurements Intervals [place] Rate: 113 P: 0 OH: 0 QRS: 37 QRSD: 89 T: 37 QT: 358 QTc: 491 Interpretive Statements ATRIAL FIBRILLATION WITH RAPID VENTRICULAR RESPONSE POSSIBLE RIGHT VENTRICULAR CONDUCTION DELAY [RSR (QR) IN V1/V2] NONSPECIFIC ST & T-WAVE ABNORMALITY ABNORMAL RHYTHM ECG Compared to ECG 04/18/2025 18:08:51 No significant changes Electronically Signed On 05-28-2025 18:30:58 BRAND MANAGER by EUNICE LOCKHART [email or web address]
--- OUTSIDE RECORDS SUMMARY | 2025-05-27 19:52 | XMS_ITS | Clinical Summary ---
Author Organization [facility] Based Address [address] [place] [address] Care Team Providers Care Steel Fitter Name Role Phone Unavailable Primary Care Provider Unavailabl e Allergies Active Allergy Reactions Criticality Noted Date Comments Adhesive Tape-Silicones Rash Low 04/30/2025 Medications folic acid (FOLVITE) 1 mg tablet [...] times daily. 300 Tablet 3 5 Active Eliquis 5 mg tablet 5 mg. Active calcium CITRATE-vitamin D3 (CITRACAL D MAX) 315 mg-6.25 mcg (250 unit) Tablet Take by mouth daily. Active cyanocobalamin 1,000 mcg Tablet Take 1,000 mcg by mouth daily. 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 Aneurysm of ascending aorta 04/20/2025 Pulmonary embolism 04/18/2025 Stage 3a chronic kidney disease 03/25/2025 Rheumatoid arthritis 11/29/2022 Supraventricular tachycardia 11/29/2022 Hypothyroidism 11/29/2022 Goiter 07/12/2022 Overview (05/25/2025): goiter; goiter at age 9 or 10 began thyroid medication age 14; Paroxysmal atrial fibrillation 03/01/2022 Overview (05/25/2025): Atrial Fibrillation - Status is Inactive; 03/01/2022 2:36PM by JANETTE Degroot, Annotation/Addendum; Promoted; acuity set as *; ATRIAL FIBRILLATION - Status is Inactive; Recorded 03/01/2022 2:36PM by Inga Trammell PA-C, Annotation/Addendum; Promoted; acuity set as *; Hypertensive disorder 06/19/2015 Overview (05/25/2025): Hypertension - Status is Inactive; 06/20/2015 1:22PM by Albertina Enriquez LPN, Annotation/Addendum; Promoted; acuity set as *; Hyperlipidemia 06/19/2015 Overview (05/25/2025): Hyperlipidemia - Status is Inactive; 06/20/2015 1:22PM by Albertina Enriquez LPN, Annotation/Addendum; Promoted; acuity set as *; Encounters Date Type Department Care Team Description 05/25/2025 9:30 AM SILVERWARE BUFFER Office Visit [facility] [address] [facility] [address] [place] [address] Louisa Penny MD Krazer, Kevin B, ANP Paroxysmal atrial fibrillation (CMS/HCC) (Primary Dx); Pulmonary embolism, unspecified chronicity, unspecified pulmonary embolism type, unspecified whether acute cor pulmonale present (CMS/HCC); Aneurysm of ascending aorta without rupture 05/24/2025 Telephone [facility] [address] [place] [phone] Francisca Marshall RN Procedure 05/24/2025 Telephone [facility] [address] [place] [phone] Louisa Penny MD Question 04/30/2025 3:24 PM SILVERWARE BUFFER - 04/30/2025 11:59 PM SILVERWARE BUFFER Hospital Encounter [facility] Respiratory Therapy Services [address] [address] [place] [address] Arcadio Mitchell CRNP Discharge Disposition: Home or Self Care 04/30/2025 2:10 PM SILVERWARE BUFFER Office Visit [place] [address] [place] [phone] Louisa Penny MD Myer, Walter Donald, CRNP PVC (premature ventricular contraction) (Primary Dx); Syncope, unspecified syncope type; Sinus bradycardia; Atrial fibrillation, unspecified type ([facility]); Anticoagulated on Eliquis 04/30/2025 Telephone [place] [address] [place] [phone] Louisa Penny MD Question; Information 04/07/2025 External Device Data STL ABSTRACTION Provider, Abstract 04/07/2025 External Device Data STL ABSTRACTION Provider, Abstract 03/09/2025 External Device Data STL ABSTRACTION Provider, Abstract 03/02/2025 External Device Data STL ABSTRACTION Provider, Abstract 02/26/2025 1:00 PM CDT Office Visit [facility] [address] [place] [address] Corby Lyons, OD Fuchs' corneal dystrophy of both eyes (Primary Dx); Combined form of senile cataract of left eye; Dry eyes, bilateral; Hyperopia with regular astigmatism, bilateral from Last 3 Months Social History Tobacco Use Types Packs/Day Years Used Date Smoking Tobacco: Never Smokeless Tobacco: Never Tobacco Cessation:Counseling Given: Not Answered Comments Unknown Sex and Gender Information Value Date Recorded Sex Assigned at Not on file Legal Sex Female 12:56 AM SILVERWARE BUFFER Gender Identity Not on file Sexual Orientation Not on file Last Filed Vital Signs Vital Sign Reading Time Taken Comments Blood Pressure 100/84 05/25/2025 9:44 AM SILVERWARE BUFFER Pulse 97 05/25/2025 9:44 AM SILVERWARE BUFFER Temperature - - Respiratory Rate - - Oxygen Saturation - - Inhaled Oxygen Concentration - - Weight 71.8 kg (158 lb 3.2 oz) 05/25/2025 9:44 A M SILVERWARE BUFFER Height 167.6 cm (5' 6 ) 05/25/2025 9:44 AM SILVERWARE BUFFER Body Mass Index 25.53 05/25/2025 9:44 AM SILVERWARE BUFFER Plan of Treatment Upcoming Encounters Date Type Department Care Team (Late st Contact Info) Description 08/23/2025 1:00 PM CDT Office Visit [facility] [address] [facility] [address] [place] [phone] Louisa Penny MD [address] [facility] [address] [place] [phone] Carlin Ba, ROBBY [address] [facility] [address] [place] [phone] Health Maintenance Due Date Last Done [...] PCV21) 08/10/2020 06/15/2020 INFLUENZA VACCINE (#1) 2025 2, 06/13/2020, 05/21/2018 COVID-19 Vaccine (5 - 2024-2 6 season) 2025 06/04/2022, 12/30/2021, 08/09/2020, Additional history exists DTAP/TDAP/TD VACCINES (2 - T d or Tdap) 12/03/2026 12/03/2016 ZOSTER VACCINE Completed 03/12/2023, 11/29/2022 Procedures Procedure Name Priority Date/Time Associated Diagnosis Comments IN XTRNL PT ACTIVATED ECG RECORD MONITOR 30 DAYS Routine 05/25/2025 12:02 PM SILVERWARE BUFFER Atrial fibrillation, unspecified type (CMS/HCC) IN ECG ROUTINE ECG W/LEAST 12 LDS W/I&R Routine 04/30/2025 3:00 PM SILVERWARE BUFFER Mixed hyperlipidemia Supraventricular tachycardia PVC (premature ventricular contraction) Syncope, unspecified syncope type Sinus bradycardia from Last 3 Months Results * IN XTRNL PT ACTIVATED ECG RECORD MONITOR 30 DAYS (05/25/2025 12:02 PM SILVERWARE BUFFER) Narrative [facility] - 05/25/2025 12:02 PM SILVERWARE BUFFER Carlin Ba, ANP 05/25/2025 12:10 PM 12 Lead EKG: Rhythm: Sinus rhythm with PAC, incomplete RBBB, nonspecific T wave abnormality, ventricular rate 97 bpm, IN interval 184 ms, QRS duration 92 ms, QTc 441 ms us Arcadio [facility] ORDERAB LES Final Result [facility] CLIA [id number] [address] [facility] [address] [place] [address], [place] [phone] * IN ECG ROUTINE ECG W/LEAST 12 LDS W/I&R (04/30/2025 3:00 PM SILVERWARE BUFFER) Narrative [facility] - 04/30/2025 3:00 PM SILVERWARE BUFFER Arcadio Mitchell WILIAN Whitten 04/30/2025 3:21 PM 12 Lead EKG: Rhythm: Normal sinus rhythm possible left atrial argument, incomplete right bundle branch block, T wave abnormality-abnormal ECG, ventricular rate 69 bpm, IN interval 186 ms, QRS duration 94 ms, QTc 409 ms Procedure Note PaulaArcadio guajardo WILIAN Whitten - 04/30/2025 3:00 PM CST 12 Lead EKG: Rhythm: Normal sinus rhythm possible left atrial argument,incomplete right bundle branch block, T wave abnormality-abnormal ECG,ventricular rate 69 bpm, IN interval 186 ms, QRS duration 94 ms, QTc 409ms us Catia Hutton NP ECG ORDERABLES Final Resul t [facility] [id number] [address] [facility] [address] [place] [address], from Last 3 Months Insurance [employer] PPO MCR RX [employer] RX Member Subscriber Plan / Payer (Ef fective 2020-Present) Name:Colleen Longo Relation to Subscriber:Self Name:Colleen Longo Payer ID:Not on file Group ID:[id number] Type:RX Medicare Part D Address: [address]
--- OUTSIDE RECORDS SUMMARY | 2025-05-27 19:52 | XMS_ITS | Encounter Summary ---
Author Organization [facility] Address [address] [place] [address] Care Team Providers Care Fiber Design Engineer Name Role Phone Rustam Trammell MD Primary Care Provider [phone] Encounter Details Date Type Department Care Team (Latest Contact Info) Description 09/20/1998 Outpatient Historical [facility] [address] [place] [address] Tera Ness MD NO ADDRESS ON FILE Circumscribe scleroderma (Primary Dx) Social History Tobacco Use Types Packs/Day Years Used Date Smoking Tobacco: Never Assessed Comments Unknown Sex and Gender Information Value Date Recorded Sex Assigned at Not on file Legal Sex Female 6:40 AM CONCRETE TESTER Gender Identity Not on file Sexual Orientation Not on file documented as of this encounter Plan of Treatment Not on file documented as of this encounter Visit Diagnoses Diagnosis Circumscribe scleroderma- Primary Circumscribed scleroderma documented in this encounter Care Teams Fiber Design Engineer Relationship Specialty Start Date End Date Rustam Trammell MD [address] [facility] [address] [place] [address] PCP - General Family Practice 11/07/20 documented as of this encounter
--- OUTSIDE RECORDS SUMMARY | 2025-05-27 19:52 | XMS_ITS | Continuity of Care Document ---
Author Organization MICHELL Hernandez [facility] Joanne Rebolledo, [facility] ([facility]) Address [address] [place] [address] Care Team Providers Care Cargo Services Coordinator Name Role Phone SANTANANAV JulioON Primary Care Provider [phone] TOMÁS HILL Referring Provider MARIO MAYER Referring Provider [phone] Assessment No assessment recorded. Plan of Treatment Reminders Order Date Submit Date Provider Last Modified By Organization Details Last Modified Time Details Appointments None recorded. Lab CBC 2024 025 MIAMI Lawson [facility], [address] [place] [address], [facility] [address], [address], 5 14:19:16 C-reactive protein, quantitativ e, serum or plasma 2024 025 MIAMI [employer] [facility], [address] [place] [address] [address] [place], [address], 07:45:50 creatinine, blood 2024 025 [facility] ([facility]), [address] [place] [address], [phone], 5 14:21:11 ESR (erythrocyt e sedimentati on rate), blood 2024 025 [facility] ([facility]), [address] [place] [address], [address], 15:17:02 hepatic function panel, serum 2024 025 MARY Lutzton [facility], [address], [address], [place], [address], 14:20:34 Referral None recorded. Procedures None recorded. Surgeries None recorded. Imaging None recorded. Medication Orders None recorded. Patient TargetsNo targets recorded. Patient InstructionsNo instructions recorded. Reason for Referral None Reported. Results Created Date Observation Date Name Description Value Unit Range Abnormal Flag Note LastModifiedBy Organization Detail LastModifiedTime 03/24/2003/24/2025 CBC WBC 6.2 x10 4.0-10 .5 Not Available Lawson [facility] [address], [place], [address], 03/24/2025 14:19:16 03/24/2003/24/2025 CBC RBC 4.49 x10 3.50-5 .50 Not Available Lawson [facility] [address], [place], [address], 03/24/2025 14:19:16 03/24/2003/24/2025 CBC HGB 14.1 g/dL 12.0-1 6.0 Not Available Lawson [facility] [address], [place], [address], 03/24/2025 14:19:16 03/24/2003/24/2025 CBC HCT 43.6 % 37.0-4 7.0 Not Available Lawson [facility] [address], [place], [address], 03/24/2025 14:19:16 03/24/2003/24/2025 CBC MCV 97.0 fL 80.0-9 9.9 Not Available Lawson [facility] [address], [place], [address], 03/24/2025 14:19:16 03/24/2003/24/2025 CBC MCH 31.4 pg 27.0-3 2.0 Not Available Lawson [facility] [address] [facility] 1, [place], [address], 03/24/2025 14:19:16 03/24/2003/24/2025 CBC MCHC 32.4 g/dL 32.0-3 6.0 Not Available Lawson [facility] [address] [facility] [address] [facility] 1, [place], [address], 03/24/2025 14:19:16 03/24/2003/24/2025 CBC RDW 14.9 % 11.5-1 4.5 high Not Available Lawson [facility] [address] [facility] 1, [place], [address], 03/24/2025 14:19:16 03/24/2003/24/2025 CBC plt 277.1 x10 140.0- 451.0 Not Available Lawson [facility] [address] [facility] 1, [place], [address], 03/24/2025 14:19:16 03/24/2003/24/2025 CBC lymphocytes % 27.8 % 20.0-5 0.0 Not Available Lawson [facility] [address] [facility] 1, [place], [address], 03/24/2025 14:19:16 03/24/2003/24/2025 CBC granulcytes % 59.3 % 30.0-7 0.0 Not Available Lawson [facility] [address] [facility] [address] [facility] 1, [place], [address], 03/24/2025 14:19:16 03/24/2003/24/2025 CBC monocytes % 7.8 % 2.0-16 .0 Not Available Lawson [facility] [address], [place], [address], 03/24/2025 14:19:16 03/24/2003/24/2025 CBC granulcytes# 3.7 x10 Not Arabella ilable [facility] [address] [facility] [address] [facility] 1, [place], [address], 03/24/2025 14:19:16 03/24/2003/24/2025 CBC lymphocytes # 1.7 x10 Not Available [facility] [address] [facility] [address] [facility] 1, [place], [address], 03/24/2025 14:19:16 03/24/2003/24/2025 CBC monocytes # 0.5 x10 Not Avai lable [facility] [address] [facility] [address] [facility] 1, [place], [address], 03/24/2025 14:19:16 03/24/2003/24/2025 LIVER PANEL (FEMA LE) total protein 7.6 g/dL 6.0-8. 5 Not Available [facility] [address] [facility] [address] [facility] 1, [place], [address], 03/24/2025 14:20:34 03/24/2003/24/2025 LIVER PANEL (FEMA LE) total bilirubin 0.9 mg/dL 0.2-1. 3 Not Available [facility] [address] [facility] [address] [facility] 1, [place], [address], 03/24/2025 14:20:34 03/24/2003/24/2025 LIVER PANEL (FEMA LE) conj. bilirubin (direct) 0.00 mg/dL 0.00-0 .40 Not Available [facility] [address] [facility] [address] [facility] 1, [place], [address], 03/24/2025 14:20:34 03/24/20 03/24/2025 LIVER PANEL (FEMA LE) albumin 4.4 g/dL 3.5-5. 5 Not Available [facility] [address] [address], [place], [address], 03/24/2025 14:20:34 03/24/20 25 03/24/2025 LIVER PANEL (FEMA LE) AST (SGOT) 64.0 U/L 0.0-46 .0 high Not Available [facility] [address] [facility] 1, [place], [address], 03/24/2025 14:20:34 03/24/20 25 03/24/2025 LIVER PANEL (FEMA LE) altv (SGPT) 71.0 U/L 13.0-6 9.0 abnormal Not Available [address] [address], [place], [address], 03/24/2025 14:20:34 03/24/20 25 03/24/2025 LIVER PANEL (FEMA LE) ALP phos 77.0 U/L 30.0-1 40.0 normal Not Available [address] [address], [place], [address], 03/24/2025 14:20:34 03/24/20 25 03/25/2025 C-RENU CTIVE PROTE IN C-reactive protein <3.0 mg/L <8.0 normal Not Available [facility] [address] [place], [address], 03/25/2025 07:45:50 03/24/2003/24/2025 ESR (eryt hrocy te sedim entat ion rate) , blood SedRate 21 Not Available [facility] ([facility]) [address] [place], [address], 03/24/2025 13:08:57 03/24/2003/24/2025 creat inine , blood creatinine 0.81 mg/dL 0.4-1. 5 normal Not Available [facility] ([facility]) [address] [place], [address], 03/24/2025 13:08:54 03/25/20 25 03/25/2025 XR, chest , 2 view No observ ation record ed. [facility] ([facility]) [address] [place], [address], 03/25/2025 13:01:27 03/26/2003/25/2025 imagi ng/di agnos tic resul t No observ ation record ed. [facility] [address] [place], [address], 03/29/2025 15:17:06 Result Notes None recorded. Problems Name Problem SNOMED Code Status Onset Date Resolution Date Notes Provider Name and Address Organization Details Recorded Time Hyperlip idemia 19645737 Completed 201506/20/2015 Hyperlip idemia - Status is Inactive ; 06/20/19 16 1:22PM by Albertina Espinoza LPN, Teresaati on/Adden dum; Promoted ; acuity set as *; Not Available [facility] 3 03:16:00 Hyperten sive disorder 62889031 Completed 201506/20/2015 Hyperten argelia - Status is Inactive ; 06/20/19 16 1:22PM by Albertina Espinoza LPN, Annotati on/Adden dum; Promoted ; acuity set as *; Not Available [facility] 3 03:16:03 Atrial fibrilla tion 61126670 Completed 202103/01/2022 Atrial Fibrilla tion - Status is Inactive ; 03/01/20 22 2:36PM by Inga Santana PA-C, Annotati on/Adden dum; Promoted ; acuity set as *; ATRIAL FIBRILLA TION - Status is Inactive ; Recorded 03/01/20 22 2:36PM by Inga Santana, PA-C, Annotati on/Adden dum; Promoted ; acuity set as *; Not Available [facility] 3 03:16:03 Tobacco dependen ce syndrome 15291167 Completed 202103/01/2022 Tobacco use - Status is Inactive ; Recorded 03/01/20 2:58PM by Inga Santana PA-C, Annotati on/Adden dum; Promoted ; acuity set as *; Not Available [facility] 3 03:16:03 Morphea 273886997 Active 2022 MORPHEA; Recorded 07/13/19 12:08PM by Albertina Espinoza LPN, Office Visit; Promoted ; acuity set as *; Not Available [facility] 3 03:16:02 Goiter 3368808 Active 2022 goiter; goiter at age 9 or 10 began thyroid medicati on age 14; ALBERTINA abdullahi, [facility] 5 12:10:06 Hypothyr oidism 43099144 Active 2022 ALBERTINA abdullahi, [facility] 3 10:44:41 Lichen sclerosu s 353952239 Active 2022 ALBERTINA abdullahi, [facility] 3 10:44:50 Rheumato id arthriti s 04876258 Active 2022 ALBERTINA abdullahi, [facility] 3 10:44:58 Supraven tricular tachycar akshat 5696845 Active 2022 ALBERTINA abdullahi, [facility] 3 10:45:05 History of herpes zoster 57401354272 9108 Active 2022 Sim Santana MD [address] [place] [address], [address] , [facility] 3 11:33:34 Paroxysm al atrial fibrilla tion 793265507 Active 2022 ALBERTINA abdullahi [facility] 12:10:23 Chronic kidney disease stage 3A 877234891 Active 2024 ALBERTINA abdullahi, [facility] 12:42:15 Acute pulmonar y embolism 812900343 Active 2024 ALBERTINA abdullahi [facility] 15:17:25 Aneurysm of ascendin g aorta 749776923 Active 2024 Sim Santana MD [address] [place] [address], [address] [place] [address] , [facility] 12:29:05 Pulmonar y embolism 11219310 Active 2024 Sim Santana MD [address] [place] [address], [address] [place] [address] , [facility] 12:29:14 Hiatal hernia 28405949 Active 2024 Sim Santana MD [address] [place] [address], [address] [place] [address] , [facility] 12:30:02 Stenosis of interver tebral foramina 82178621244 9 Active 2024 Sim Santana MD [address] [place] [address], [address] [place] [address] , [facility] 12:30:28 Problem Notes None recorded. Procedures Surgical History Date Name Laterality Status Provider Name and Address Organization Details Recorded Time repair of femoral hernia completed ALBERTINA ESPINOZA [facility] 11/29/2022 10:48:22 Carpal tunnel surgery completed ALBERTINA ESPINOZA [facility] 11/29/2022 10:48:33 Imaging Results None recorded. Procedure [...] topical cream every other day 11/03 completed [facility]; Recorded 03/01/20 7:24AM by Leila Yen LPN, [...] completed Not Available Not Available Not Available famotidin e 20 mg tablet Take 1 tablet twice a day by oral route. active Not Available Not Available No t Available prednisol one acetate 1 % eye drops,edilson pension 11/29 completed Not Available Not Available Not Available methotrex ate sodium 2.5 mg tablet TAKE 8 TABLETS ON THE SAME DAY ONCE A WEEK. 2024 active Not Available Not Available Not Avai lable meclizine 25 mg tablet TAKE 1 TABLET BY MOUTH THREE TIMES DAILY FOR 7 DAYS 06/02 completed Not Available Not Available Not Available tacrolimu s 0.1 % topical ointment AAA twice weekly 04/21 completed Not Available Not Available Not Available tacrolimu s 0.03 % topical ointment apply ONE gram topicall y TO affected area EVERY 7 DAYS active Not Available Not Available No t Available levothyro xine 150 mcg tablet TAKE 1 [...] mg tablet,ex tended release 24 hr take 1 tablet BY MOUTH TWICE DAILY active Not Available Not Available No t Available clobetaso l 0.05 % topical ointment apply ONE gram topicall y TO affected area EVERY 7 DAYS active Not Available Not Available No t [...] mg tablet TAKE 1 TABLET BY MOUTH every 24 hours for 5 days active Not Available Not Available No t Available fluticaso ne propionat e 50 mcg/actua [...] 07/05/19 2:53PM by Albertina Espinoza LPN (Authori ailind through Sim Santana MD), Annotati on/Adden dum; Mail Order Quantity : 75 Tablet; Refill Quantity : 0; Not Available Not Available Not Available Vitamin B12 1 daily active Not Available Not Available Not Available peg 3350-elec trolytes 236 gram-22.7 4 gram-6.74 gram-5.86 gram solution 04/30 completed Not Available Not Available Not Available Eliquis 5 mg tablet TAKE 1 TABLET BY MOUTH TWICE DAILY active Not Available Not Available No t Available Restasis MultiDose 0.05 % eye drops 04/30 completed Not Available Not Available Not Available Vitals None Recorded Social History Question Answer Notes LastModified by [employer] Breath MD Details LastModified Time Tobacco Smoking Status Never [facility]oker [facility] 11/29/2022 10:47:51 What Was The Date Of Your Most Recent Tobacco Screening? 04/18/2025 [email or web address] Information not available 04/18/2025 Sex: Unknown Functional Status Question Answer Note LastModified by [employer] Breath MD Details LastModified Time Do you use any illicit or recreational drugs? No [email or web address] Information not available 11/29/2022 Do you or have you ever used any other forms of tobacco or nicotine? No [email or web address] Information not available 04/30/2023 What is your level of alcohol consumption? None Information not available 11/29/2022 Do you or have you ever used any nicotine-free cigarettes, vape, or chewing tobacco? No [email or web address] Information not available 08/18/2024 Mental Status None recorded. Family History Relationship Description Onset Age of this Age Resolved Age Notes LastModified by Organization Details LastModified Time Mother Malignant neoplasm of colon [email or web address] Not available 11/29 10:46:53 Brother Autoimmune thyroiditis [email or web address] Not available 10:47:14 Brother Malignant neoplasm of colon [email or web address] Not available 11/29 10:49:54 Sister Autoimmune thyroiditis [email or web address] Not available 10:47:14 Sister Cardiomyopat hy [facility] chi's Cardio myopat hy [email or web address] Not available 04/21/2025 12:27:31 Medical History No medical history recorded. Gynecological HistoryNo gynecological history recorded. Obstetrics History GPAL:G 0 P 0 0 0 0 Immunizations Vaccine Type Date Status Note Provider Nam e and Address Organization Details Recorded Time Influenza, recombinant, quadrivalent, PF 0 completed ALBERTINA abdullahi [facility] 11/29/2022 10:45:32 Influenza, high-dose, quadrivalent, PF 2 completed ALBERTINA abdullahi [facility] 11/29/2022 10:45:32 COVID-19, mRNA, LNP-S, PF, 100 mcg/0.5mL dose or 50 mcg/0.25mL dose 1 completed ALBERTINA ESPINOZA null, [facility] 11/29/2022 10:45:32 COVID-19, mRNA, LNP-S, PF, 100 mcg/0.5mL dose or 50 mcg/0.25mL dose 1 completed ALBERTINA ESPINOZA null, [facility] 11/29/2022 10:45:32 COVID-19, mRNA, LNP-S, PF, 100 mcg/0.5mL dose or 50 mcg/0.25mL dose 2 completed ALBERTINA abdullahi, [facility] 11/29/2022 10:45:32 COVID-19, mRNA, LNP-S, bivalent, PF, 50 mcg/0.5 mL or 25mcg/0.25 mL dose 2 completed ALBERTINA abdullahi, [facility] 11/29/2022 10:45:32 Tdap 7 completed ALBERTINA abdullahi, [facility] 11/29/2022 10:45:32 Pneumococcal conjugate PCV 13 0 completed ALBERTINA ESPINOZA null, [facility] 11/29/2022 10:45:32 zoster recombinant 3 completed ALBERTINA abdullahi, [facility] 11/29/2022 14:01:35 Influenza, split virus, trivalent, preservative 8 completed Not Available [facility] 07/23/2023 14:09:00 zoster recombinant 3 completed Sim Santana MD [address] [place] [address], [phone], [facility], Joanne 03/20/2023 10:21:03 Past Encounters Encounter ID Performer Location Encounter Start Date Encounter Closed Date Diagnosis/Indication Diagnosis SNOMED-CT Code Diagnosis ICD10 Code Diagnosis IMO Codes Diagnosis Note [id number] LAURENCE ANAYA [facility] ([facility]) [address] [place] [phone] 03/06/2025 17:07:06 03/09/2025 13:39:10 Acute upper respiratory infection 18298423 J06.9 2456 May use otc meds like zyrtec and fluticason e nasal spray as needed for symptoms. Return to clinic with any new or worsening symptoms. [id number] Sim Santana MD [facility] ([facility]) [address] [place] [phone] 03/24/2025 13:05:16 03/25/2025 09:34:12 Long-term current use of drug therapy 347667573 Z79.327 1383909 Health Concerns Section Related Observation LastModified by Organization Detai ls LastModified Time None Recorded Concern Status LastModified by Organization Details LastModified Time None Recorded Payers Encounter Date Sequence Insurance Name Policy Number Policy Adam Covered Member ID Adam Member ID Guarantor Name 03/24/2025 1 [employer] (MEDICARE REPLACEMENT/ ADVANTAGE - PPO) Colleen Longo [id number] Colleen Longo OBGyn Episode No OBEpisode recorded.
--- OUTSIDE RECORDS SUMMARY | 2025-05-27 19:52 | XMS_ITS | Encounter Summary ---
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
--- OUTSIDE RECORDS SUMMARY | 2025-05-27 19:52 | XMS_ITS | Encounter Summary ---
Author Organization [facility] Address [address] [place] [address] Care Team Providers Care Digital Advertising Specialist Name Role Phone Rustam Trammell MD Primary Care Provider [phone] Encounter Details Date Type Department Care Team (Latest Contact Info) Description 09/10/1997 Outpatient Historical [facility] [place] [address] [place] [address] Tera Ness MD NO ADDRESS ON FILE Circumscribe scleroderma (Primary Dx) Social History Tobacco Use Types Packs/Day Years Used Date Smoking Tobacco: Never Assessed Comments Unknown Sex and Gender Information Value Date Recorded Sex Assigned at Not on file 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
--- OUTSIDE RECORDS SUMMARY | 2025-05-27 19:52 | XMS_ITS | Continuity of Care Document ---
Author Organization [place] - Renny [facility], LMason, [facility] ([facility]) Address [address] [place] [address] Care Team Providers Care Cloth Calender Name Role Phone NAV SANTANAON Primary Care Provider [phone] TOMÁS HILL Referring Provider MARIO MAYER Referring Provider Assessment No assessment recorded. Plan of Treatment Reminders Order Date Submit Date Provider Last Modified By Organization Details Last Modified Time Details Appointments None record ed. Lab None record ed. Referral None record ed. Procedures None record ed. Surgeries None record ed. Imaging None record ed. Medication Orders None record ed. Patient TargetsNo targets recorded. Patient Instructions Encounter Date Encounter Id Patient Instructions Last Modified By Organization Details Last Modified Time 04/18/2025 [id number] As she describes it feels like it is going to explode when she bends forward- I am going to send her to ER for further eval [email or web address] Not available 04/18/2025 11:18:14 Reason for Referral None Reported. Results Created Date Observation Date Name Description Value Unit Range Abnormal Flag Note LastModifiedBy Organization Detail LastModifiedTime 03/24/2003/24/2025 CBC WBC 6.2 x10 4.0-10 .5 Not Available [facility] [address] [facility] Sangeeta [facility] 1, [place], [address], 03/24/2025 14:19:16 03/24/20 25 03/24/2025 CBC RBC 4.49 x10 3.50-5 .50 Not Available [facility] [address] [place] [facility] 1, [place], [address], 03/24/2025 14:19:16 03/24/2003/24/2025 CBC HGB 14.1 g/dL 12.0-1 6.0 Not Available [facility] [address] [facility] [place] [facility] 1, [place], [address], 03/24/2025 14:19:16 03/24/2003/24/2025 CBC HCT 43.6 % 37.0-4 7.0 Not Available [facility] [address] [facility] 1, [place], [address], 03/24/2025 14:19:16 03/24/2003/24/2025 CBC MCV 97.0 fL 80.0-9 9.9 Not Available [facility] [address] [facility] [place] [facility] 1, [place], [address], 03/24/2025 14:19:16 03/24/2003/24/2025 CBC MCH 31.4 pg 27.0-3 2.0 Not Available [facility] [address] [facility] 1, [place], [address], 03/24/2025 14:19:16 03/24/2003/24/2025 CBC MCHC 32.4 g/dL 32.0-3 6.0 Not Available [facility] [address] [facility] [place] [facility] 1, [place], [address], 03/24/2025 14:19:16 03/24/2003/24/2025 CBC RDW 14.9 % 11.5-1 4.5 high Not Available [facility] [address] [facility] [place] [facility] 1, [place], [address], 03/24/2025 14:19:16 03/24/2003/24/2025 CBC plt 277.1 x10 140.0- 451.0 Not Available [facility] [address] [place] Sangeeta [facility] 1, [place], [address], 03/24/2025 14:19:16 03/24/2003/24/2025 CBC lymphocytes % 27.8 % 20.0-5 0.0 Not Available [facility] [address] [place] [facility] [place], [address], 03/24/2025 14:19:16 03/24/2003/24/2025 CBC granulcytes % 59.3 % 30.0-7 0.0 Not Available [facility] [address] Sangeeta [facility] 1, [place], [address], 03/24/2025 14:19:16 03/24/2003/24/2025 CBC monocytes % 7.8 % 2.0-16 .0 Not Available [facility] [address] [place] [facility], [place], [address], 03/24/2025 14:19:16 03/24/2003/24/2025 CBC granulcytes# 3.7 x10 Not Arabella ilable [facility] [address] [place] [facility], [place], [address], 03/24/2025 14:19:16 03/24/2003/24/2025 CBC lymphocytes # 1.7 x10 Not Available [facility] [address] [place] [facility], [place], [address], 03/24/2025 14:19:16 03/24/2003/24/2025 CBC monocytes # 0.5 x10 Not Avai lable [facility] [address] [place] [facility], [place], [address], 03/24/2025 14:19:16 03/24/2003/24/2025 LIVER PANEL (FEMA LE) total protein 7.6 g/dL 6.0-8. 5 Not Available [facility] [address] [facility] [place] [facility] 1, [place], [address], 03/24/2025 14:20:34 03/24/20 25 03/24/2025 LIVER PANEL (FEMA LE) total bilirubin 0.9 mg/dL 0.2-1. 3 Not Available [facility] [address] [facility] [place] [facility], [place], [address], 03/24/2025 14:20:34 03/24/2003/24/2025 LIVER PANEL (FEMA LE) conj. bilirubin (direct) 0.00 mg/dL 0.00-0 .40 Not Available [facility] [address] [facility], [place], [address], 03/24/2025 14:20:34 03/24/20 25 03/24/2025 LIVER PANEL (FEMA LE) albumin 4.4 g/dL 3.5-5. 5 Not Available [facility] [address] [facility] Sangeeta [facility] 1, [place], [address], 03/24/2025 14:20:34 03/24/20 25 03/24/2025 LIVER PANEL (FEMA LE) AST (SGOT) 64.0 U/L 0.0-46 .0 high Not Available [facility] [address] [facility] [place] [facility] 1, [place], [address], 03/24/2025 14:20:34 03/24/20 25 03/24/2025 LIVER PANEL (FEMA LE) altv (SGPT) 71.0 U/L 13.0-6 9.0 abnormal Not Available [facility] [address] [facility] Sangeeta [facility] 1, [place], [address], 03/24/2025 14:20:34 03/24/20 03/24/2025 LIVER PANEL (FEMA LE) ALP phos 77.0 U/L 30.0-1 40.0 normal Not Available [facility] [address] [facility] [address], [address], 03/24/2025 14:20:34 03/24/20 25 03/25/2025 C-RENU CTIVE PROTE IN C-reactive protein <3.0 mg/L <8.0 normal Not Available [employer] [facility] [address] [place], [address], 03/25/2025 07:45:50 03/24/2003/24/2025 ESR (eryt hrocy te sedim entat ion rate) , blood SedRate 21 Not Available [facility] ([facility]) [address] [place], [address], 03/24/2025 13:08:57 03/24/2003/24/2025 creat inine , blood creatinine 0.81 mg/dL 0.4-1. 5 normal Not Available [facility] ([facility]) [address] [place], [address], 03/24/2025 13:08:54 03/25/2003/25/2025 XR, chest , 2 view No observ ation record ed. [facility] ([facility]) [address] [place], [address], 03/25/2025 13:01:27 03/26/20 25 03/25/2025 imagi ng/di agnos tic resul t No observ ation record ed. [facility] [address] [place], [address], 03/29/2025 15:17:06 Result Notes None recorded. Problems Name Problem SNOMED Code Status Onset Date Resolution Date Notes Provider Name and Address Organization Details Recorded Time Hyperlip idemia 91595565 Completed 201506/20/2015 Hyperlip idemia - Status is Inactive ; 06/20/19 16 1:22PM by Albertina Espinoza LPN, Annotati on/Adden dum; Promoted ; acuity set as *; Not Available [facility] 03:16:00 Hyperten sive disorder 18459242 Completed 201506/20/2015 Hyperten argelia - Status is Inactive ; 06/20/19 16 1:22PM by Albertina Espinoza LPN, Annotati on/Adden dum; Promoted ; acuity set as *; Not Available [facility] 3 03:16:03 Atrial fibrilla tion 17431741 Completed 202103/01/2022 Atrial Fibrilla tion - Status is Inactive ; 03/01/20 22 2:36PM by Inga Santana PA-C, Annotati on/Adden dum; Promoted ; acuity set as *; ATRIAL FIBRILLA TION - Status is Inactive ; Recorded 03/01/20 22 2:36PM by Inga Santana PA-C, Annotati on/Adden dum; Promoted ; acuity set as *; Not Available [facility] 3 03:16:03 Tobacco dependen ce syndrome 26511826 Completed 202103/01/2022 Tobacco use - Status is Inactive ; Recorded 03/01/20 22 2:58PM by Inga Santana PA-C, Annotati on/Adden dum; Promoted ; acuity set as *; Not Available [facility] 3 03:16:03 Morphea 325171589 Active 2022 MORPHEA; Recorded 07/13/19 23 12:08PM by Albertina Espinoza LPN, Office Visit; Promoted ; acuity set as *; Not Available [facility] 3 03:16:02 Goiter 8430019 Active 2022 goiter; goiter at age 9 or 10 began thyroid medicati on age 14; ALBERTINA abdullahi [facility] 5 12:10:06 Hypothyr oidism 48516748 Active 2022 ALBERTINA abdullahi [facility] 3 10:44:41 Lichen sclerosu s 622502402 Active 2022 ALBERTINA abdullahi, [facility] 3 10:44:50 Rheumato id arthriti s 88427000 Active 2022 ALBERTINA ESPINOZA null, [facility] 3 10:44:58 Supraven tricular tachycar akshat 3891490 Active 2022 ALBERTINA ESPINOZA null, [facility] 3 10:45:05 History of herpes zoster 48199124013 9108 Active 2022 Sim Santana MD [address] [place] [address], [phone] , [facility] 3 11:33:34 Paroxysm al atrial fibrilla tion 269363741 Active 2022 ALBERTINA ESPINOZA null, [facility] 5 12:10:23 Chronic kidney disease stage 3A 671194666 Active 2024 ALBERTINA abdullahi, [facility] 5 12:42:15 Acute pulmonar y embolism 426306821 Active 2024 ALBERTINA abdullahi, [facility] 5 15:17:25 Aneurysm of ascendin g aorta 141200119 Active 2024 Sim Santana MD [address] [place] [address], [phone] , [facility] 12:29:05 Pulmonar y embolism 94798412 Active 2024 Sim Santana MD [address] [place] [address], [phone] , [facility] 12:29:14 Hiatal hernia 79042015 Active 2024 Sim Santana MD [address] [place] [address], [phone] , [facility] 12:30:02 Stenosis of interver tebral foramina 45417013672 9 Active 2024 Sim Santana MD [address] [place] [address], [phone] , [facility] L[facility]ilde 12:30:28 Problem Notes None recorded. Procedures Surgical History Date Name Laterality Status Provider Name and Address Organization Details Recorded Time repair of femoral hernia completed [facility], Joanne 11/29/2022 10:48:22 Carpal tunnel surgery completed [facility], Joanne 11/29/2022 10:48:33 Imaging Results None recorded. Procedure [...] 04/[address] [place]; 0; Recorded 07/13/19 23 12:09PM by Albertina [...] Albertina Espinoza LPN (Authori zed through Sim Santana MD), Annotati on/Adden dum; [...] (BMI) Body weight Heart rate Oxygen saturation Respiratory rate Body temperature Systolic And Diastolic Provider Name and Address Organization Details Last Updated DateTime 166.37 cm 26.1 kg/m2 15459.1 9 g 84 /min 97 % 18 /min 98 [degF] 128/86 mm[Hg] STEPHANIA DEGROOT [facility] 10:37:39 Social History Question Answer Notes LastModified by Organizat ion Details LastModified Time Tobacco Smoking Status Never Smoker ALBERTINA ESPIONZA [facility] 11/29/2022 10:47:51 What Was The Date Of Your Most Recent Tobacco Screening? 04/18/2025 [email or web address] Information not available 04/18/2025 Sex: Unknown Functional Status Question Answer Note LastModified by Organizat ion Details LastModified Time Do you use any illicit or recreational drugs? No [email or web address] Information not available 11/29/2022 Do you or have you ever used any other forms of tobacco or nicotine? No Information not available 04/30/2023 What is your level of alcohol consumption? None [email or web address] Information not available 11/29/2022 Do you or have you ever used any nicotine-free cigarettes, vape, or chewing tobacco? No [email or web address] Information not available 08/18/2024 Mental Status None recorded. Family History Relationship Description Onset Age of this Age Resolved Age Notes LastModified by Organization Details LastModified Time Mother Malignant neoplasm of colon [email or web address] Not available 11/29 10:46:53 Brother Autoimmune thyroiditis [email or web address] Not available 10:47:14 Brother Malignant neoplasm of colon [email or web address] Not available 11/29 10:49:54 Sister Autoimmune thyroiditis [email or web address] Not available 10:47:14 Sister Cardiomyopat hy [facility] myopat hy [email or web address] Not available 04/21/2025 12:27:31 Medical History No medical history recorded. Gynecological HistoryNo gynecological history recorded. Obstetrics History GPAL:G 0 P 0 0 0 0 Immunizations Vaccine Type Date Status Note Provider Nam e and Address Organization Details Recorded Time Influenza, recombinant, quadrivalent, PF 0 completed ALBERTINA abdullahi [facility] 11/29/2022 10:45:32 Influenza, high-dose, quadrivalent, PF 2 completed ALBERTINA abdullahi [facility] 11/29/2022 10:45:32 COVID-19, mRNA, LNP-S, PF, 100 mcg/0.5mL dose or 50 mcg/0.25mL dose 1 completed ALBERTINA abdullahi [facility] 11/29/2022 10:45:32 COVID-19, mRNA, LNP-S, PF, 100 mcg/0.5mL dose or 50 mcg/0.25mL dose 1 completed ALBERTINA abdullahi [facility] 11/29/2022 10:45:32 COVID-19, mRNA, LNP-S, PF, 100 mcg/0.5mL dose or 50 mcg/0.25mL dose 2 completed ALBERTINA abdullahi, [facility] 11/29/2022 10:45:32 COVID-19, mRNA, LNP-S, bivalent, PF, 50 mcg/0.5 mL or 25mcg/0.25 mL dose 2 completed ALBERTINA abdullahi, [facility] 11/29/2022 10:45:32 Tdap 7 completed ALBERTINA abdullahi, [facility] 11/29/2022 10:45:32 Pneumococcal conjugate PCV 13 0 completed ALBERTINA abdullahi, [facility] 11/29/2022 10:45:32 zoster recombinant 3 completed ALBERTINA abdullahi, [facility] 11/29/2022 14:01:35 Influenza, split virus, trivalent, preservative 8 completed Not Available [facility] 07/23/2023 14:09:00 zoster recombinant 3 completed Sim Santana MD [address] [place] [address], [phone], [facility] 03/20/2023 10:21:03 Past Encounters Encounter ID Performer Location Encounter Start Date Encounter Closed Date Diagnosis/Indication Diagnosis SNOMED-CT Code Diagnosis ICD10 Code Diagnosis IMO Codes Diagnosis Note [id number] Sim Santana MD [facility] ([facility]) [address] [place] [phone] 03/24/2025 13:05:16 03/25/2025 09:34:12 Long-term current use of drug therapy 546569647 Z79.777 7003582 [id number] Sim Santana MD [facility] ([facility]) [address] [place] [address] 03/25/2025 12:28:41 03/25/2025 13:01:48 Chronic kidney disease stage 3A 026739361 N18.31 61134589 added for historical accuracy not addressed today but is an active problem. Persistent cough 3841065 02 R05.3 467652 resume your allergy meds. has now had these sx's start early fall for 3 straight years. f/u if fever wheezing or symptoms worsening. [id number] DIANELYS AMOS APRN [facility] [address] [place] [address] 04/18/2025 10:22:36 04/18/2025 14:32:35 Neck pain 32933953 M54.2 60382 neck pressure Health Concerns Section Related Observation LastModified by Organization Detai ls LastModified Time None Recorded Concern Status LastModified by Organization Details LastModified Time None Recorded Payers Encounter Date Sequence Insurance Name Policy Number Policy Adam Covered Member ID Adam Member ID Guarantor Name 04/18/2025 1 [employer] (MEDICARE REPLACEMENT/ ADVANTAGE - PPO) Colleen Longo [id number] Colleen Longo Notes Date Note Type Note Provider Name and Address Organization Details Recorded Time 04/18/2025 text/html walk-inPatient stated that yesterday around 4pm she started having pressure in her anterior neck, denies injury. Pressure is increased when she bends forward. Pain in her ears DIANELYS AMOS APRN [address] [place], [address], MICHELL [place] [facility], Joanne 04/18/2025 11:18:24 OBGyn Episode No OBEpisode recorded.
--- OUTSIDE RECORDS SUMMARY | 2025-05-27 19:52 | XMS_ITS | Clinical Summary ---
Author Organization [facility] Based Address [address] [place] [address] Care Team Providers Care Artificial Stone Applicator Name Role Phone Rustam Trammell MD Primary Care Provider [phone] Medications triamcinolone acetonide (KENALOG) 0.1 % Ointment Apply to affected area 2 times daily. Active hydroxychloroqu ine (PLAQUENIL) 200 mg tablet Take 200 mg by mouth 2 times daily. Alternating between two tabs and one tab Active folic acid (FOLVITE) 1 mg tablet Take 1 mg by mouth daily. 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
--- OUTSIDE RECORDS SUMMARY | 2025-05-27 19:52 | XMS_ITS | Encounter Summary ---
Author Organization [facility] Address [address] [place] [address] Care Team Providers Care Hydrographic Engineer Name Role Phone Rustam Trammell MD Primary Care Provider [phone] Encounter Details Date Type Department Care Team (Latest Contact Info) Description 03/23/2004 Outpatient Historical [facility] [employer] 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
--- OUTSIDE RECORDS SUMMARY | 2025-05-27 19:52 | XMS_ITS | Encounter Summary ---
Author Organization [facility] Address [address] [place] [address] Care Team Providers Care Rn Observation Name Role Phone Unavailable Primary Care Provider Unavailabl e Reason for Visit * Reason Onset Date Comments Question 04/30/2025 Information 04/30/2025 Encounter Details Date Type Department Care Team (Late st Contact Info) Description 04/30/2025 Telephone [facility] [address] [place] [phone] Louisa Penny MD [address] [facility] [address] [place] [address] Question; Information Social History Tobacco Use Types Packs/Day Years Used Date Smoking Tobacco: Never Smokeless Tobacco: Never Comments Unknown Sex and Gender Information Value Date Recorded Sex Assigned at Not on file Legal Sex Female 12:56 AM MOLD PRESS OPERATOR Gender Identity Not on file Sexual Orientation Not on file documented as of this encounter Miscellaneous Notes * Telephone Encounter - Mallorie Carlin - 04/30/2025 8:46 AM MOLD PRESS OPERATOR Provider: Zohaib / Colleen LACEY Pt was in the hospital at [facility] with her heart, pt is in A-Fib, lung clots, right heart strain, was prescribed Eliquis, going to have [facility] faxing all the information to you and also does pt need an appt for this and if so would like to see Dr Penny, pt next appt is not till 08/17/25, please advise. Mallorie Carlin, [facility], Advanced PSR PRESS OPERATOR documented in this encounter Plan of Treatment Upcoming Encounters Date Type Department Care Team (Late st Contact Info) Description 08/23/2025 1:00 PM CDT Office Visit [facility] [address] [place] [phone] Louisa Penny MD [address] [place] [address] Carlin Ba, ROBBY [address] [place] [address] documented as of this encounter Visit Diagnoses Not on filedocumented in this encounter
--- OUTSIDE RECORDS SUMMARY | 2025-05-27 19:53 | XMS_ITS | Encounter Summary ---
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
--- OUTSIDE RECORDS SUMMARY | 2025-05-27 19:53 | XMS_ITS | Encounter Summary ---
Author Organization [facility] Address [address] [place] [address] Care Team Providers Care Unemployment Examiner Name Role Phone Rustam Trammell MD Primary Care Provider [phone] Encounter Details Date Type Department Care Team (Latest Contact Info) Description 01/13/2002 Outpatient Historical [facility] OBAlbina [place] [address] [place] [address] Tera Ness MD NO ADDRESS ON FILE Gynecologic examination (Primary Dx); Circumscribe scleroderma; FEMALE CLIMACTERIC STATE Social History Tobacco Use Types Packs/Day Years Used Date Smoking Tobacco: Never Assessed Comments Unknown Sex and Gender Information Value Date Recorded Sex Assigned at Not on file Legal 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 Female 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
--- OUTSIDE RECORDS SUMMARY | 2025-05-27 19:53 | XMS_ITS | Encounter Summary ---
Author Organization [facility] Address [address] [place] [address] Care Team Providers Care Project Coordinator Rn Name Role Phone Rustam Trammell MD Primary Care Provider [phone] Encounter Details Date Type Department Care Team (Late st Contact Info) Description 12/08/2002 Outpatient Historical [facility] OBNSonido [place] [address] [place] [address] Tera Ness MD NO ADDRESS ON FILE Social History Tobacco Use Types Packs/Day Years Used Date Smoking Tobacco: Never Assessed Comments Unknown Sex and Gender Information Value Date Recorded Sex Assigned at Not on file Legal Sex Female 6:40 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
--- OUTSIDE RECORDS SUMMARY | 2025-05-27 19:53 | XMS_ITS | Encounter Summary ---
Author Organization [facility] Address [address] [place] [address] Care Team Providers Care Adjutant General Name Role Phone Rustam Trammell MD Primary Care Provider Encounter Details Date Type Department Care Team (Latest Contact Info) Description 12/08/2002 Outpatient Historical [facility] OBGYN-[place] [address] [place] [address] Tera Ness MD NO ADDRESS ON FILE Gynecologic examination (Primary Dx); SCREENING MAL NEOP-RECTUM Social History Tobacco Use Types Packs/Day Years Used Date Smoking Tobacco: Never Assessed Comments Unknown Sex and Gender Information Value Date Recorded Sex Assigned at Not on file Legal 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
--- OUTSIDE RECORDS SUMMARY | 2025-05-27 19:53 | XMS_ITS | Encounter Summary ---
Author Organization [facility] Address [address] [place] [address] Care Team Providers Care Parts Room Assistant Name Role Phone Rustam Trammell MD Primary Care Provider [phone] Encounter Details Date Type Department Care Team (Latest Contact Info) Description 2000 Outpatient Historical [facility] OBSANDOVALN-Head [place] [address] [place] [address] Tera Ness MD NO ADDRESS ON FILE Vaginitis and vulvovaginitis, unspecified (Primary Dx) Social History Tobacco Use Types Packs/Day Years Used Date Smoking Tobacco: Never Assessed Comments Unknown Sex and Gender Information Value Date Recorded Sex Assigned at Not on file 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
--- OUTSIDE RECORDS SUMMARY | 2025-05-27 19:53 | XMS_ITS | Continuity of Care Document ---
Author Organization MICHELL - Renny Hernandez [facility], LMatildeLAneta, [facility] ([facility]) Address [address] [place] [address] Care Team Providers Care Storage Battery Inspector And Tester Name Role Phone SIM SANTANA Primary Care Provider TOMÁS HILL Referring Provider MARIO AMYER Referring Provider Assessment No assessment recorded. Plan of Treatment Reminders Order Date Submit Date Provider Last Modified By Organization Details Last Modified Time Details Appointments None recorded. Lab None recorded. Referral None recorded. Procedures None recorded. Surgeries None recorded. Imaging None recorded. Medication Orders amoxicillin 875 mg-potassiu m clavulanate 125 mg tablet 2024 025 [facility] 15, [address] [place] [address], [address], 05:01:29 Patient TargetsNo targets recorded. Patient InstructionsNo instructions recorded. Reason for Referral None Reported. Results Created Date Observation Date Name Description Value Unit Range Abnormal Flag Note LastModifiedBy Organization Detail LastModifiedTime 03/25/2003/25/2025 XR, chest , 2 view No observ ation record ed. [facility] ([facility]) [address] [place], [address], 03/25/2025 13:01:27 03/26/20 25 03/25/2025 imagi ng/di agnos tic resul t No observ ation record ed. [facility] [address] [place], [address], 03/29/2025 15:17:06 Result Notes None recorded. Problems Name Problem SNOMED Code Status Onset Date Resolution Date Notes Provider Name and Address Organization Details Recorded Time Hyperlip idemia 57928420 Completed 201506/20/2015 Hyperlip idemia - Status is Inactive ; 06/20/19 16 1:22PM by Albertina Espinoza LPN, Annotati on/Adden dum; Promoted ; acuity set as *; Not Available [facility] 3 03:16:00 Hyperten sive disorder 93768957 Completed 201506/20/2015 Hyperten argelia - Status is Inactive ; 06/20/19 16 1:22PM by Albertina Espinoza LPN, Annotati on/Adden dum; Promoted ; acuity set as *; Not Available [facility] 3 03:16:03 Atrial fibrilla tion 61974348 Completed 202103/01/2022 Atrial Fibrilla tion - Status is Inactive ; 03/01/20 2:36PM by Inga Santana PA-C, Annotati on/Adden dum; Promoted ; acuity set as *; ATRIAL FIBRILLA TION - Status is Inactive ; Recorded 03/01/20 2:36PM by Inga Santana PA-C, Annotati on/Adden dum; Promoted ; acuity set as *; Not Available [facility] 3 03:16:03 Tobacco dependen ce syndrome 84059852 Completed 202103/01/2022 Tobacco use - Status is Inactive ; Recorded 03/01/20 2:58PM by Inga Santana PA-C, Annotati on/Adden dum; Promoted ; acuity set as *; Not Available [facility] 3 03:16:03 Morphea 549700302 Active 2022 MORPHEA; Recorded 07/13/19 23 12:08PM by Albertina Espinoza LPN, Office Visit; Promoted ; acuity set as *; Not Available [facility] 3 03:16:02 Goiter 6028185 Active 2022 goiter; goiter at age 9 or 10 began thyroid medicati on age 14; ALBERTINA abdullahi, [facility] 5 12:10:06 Hypothyr oidism 67244655 Active 2022 ALBERTINA abdullahi, [facility] 3 10:44:41 Lichen sclerosu s 076859547 Active 2022 ALBERTINA ESPINOZA null, [facility] 3 10:44:50 Rheumato id arthriti s 63459514 Active 2022 ALBERTINA abdullahi, [facility] 3 10:44:58 Supraven tricular tachycar akshat 0065836 Active 2022 ALBERTINA abdullahi, [facility] 3 10:45:05 History of herpes zoster 05054659354 9108 Active 2022 Sim Santana MD [address] [place] [address], [phone] [facility] 3 11:33:34 Paroxysm al atrial fibrilla tion 653892392 Active 2022 ALBERTINA abdullahi, [facility] 5 12:10:23 Chronic kidney disease stage 3A 419320083 Active 2024 ALBERTINA abdullahi, [facility] 5 12:42:15 Acute pulmonar y embolism 226716132 Active 2024 ALBERTINA abdullahi, [facility] 5 15:17:25 Aneurysm of ascendin g aorta 687910634 Active 2024 Sim Santana MD [address] [place] [phone] , [facility] 12:29:05 Pulmonar y embolism 17812375 Active 2024 Sim Santana MD [address] [place] [address], [phone] , [facility] 12:29:14 Hiatal hernia 15519321 Active 2024 Sim Santana MD [address] [place] [address], [phone] , [facility] L.LMatildeCMatilde 12:30:02 Stenosis of interver tebral foramina 33060615910 9 Active 2024 Sim Santana MD [address] [place] [address], [phone] , [facility], LMatildeLMatildeCMatilde 12:30:28 Problem Notes None recorded. Procedures Surgical History Date Name Laterality Status Provider Name and Address Organization Details Recorded Time repair of femoral hernia completed [facility], Joanne 11/29/2022 10:48:[address] [facility] 11/29/2022 10:48:33 Imaging Results None recorded. Procedure [...] weight Body temperature Heart rate Oxygen saturation Systolic And Diastolic Provider Name and Address Organization Details Last Updated DateTime 5 166.37 cm 25.4 kg/m2 63888.5 2 g 98 [degF] 64 /min 97 % 122/70 mm[Hg] Karen Carmona [facility] 17:15:50 Social History Question Answer Notes LastModified by Organizat ion Details LastModified Time Tobacco Smoking Status Never Smoker ALBERTINA abdullahi [facility] 11/29/2022 10:47:51 What Was The Date Of Your Most Recent Tobacco Screening? 04/18/2025 [email or web address] Information not available 04/18/2025 Sex: Unknown Functional Status Question Answer Note LastModified by Organizat ion Details LastModified Time Do you use any illicit or recreational drugs? No Information not available 11/29/2022 Do you or have you ever used any other forms of tobacco or nicotine? No [email or web address] Information not available 04/30/2023 What is your level of alcohol consumption? None [email or web address] Information not available 11/29/2022 Do you or have you ever used any nicotine-free cigarettes, vape, or chewing tobacco? No [email or web address] Information not available 08/18/2024 Mental Status None recorded. Family History Relationship Description Onset Age of this Age Resolved Age Notes LastModified by Organization Details LastModified Time Mother Malignant neoplasm of colon Not available 11/29 10:46:53 Brother Autoimmune thyroiditis [email or web address] Not available 10:47:14 Brother Malignant neoplasm of colon [email or web address] Not available 11/29 10:49:54 Sister Autoimmune thyroiditis Not available 10:47:14 Sister Cardiomyopat hy Yamagu chi's Cardio myopat hy [email or web address] Not available 04/21/2025 12:27:31 Medical History No medical history recorded. Gynecological HistoryNo gynecological history recorded. Obstetrics History GPAL:G 0 P 0 0 0 0 Immunizations Vaccine Type Date Status Note Provider Nam e and Address Organization Details Recorded Time Influenza, recombinant, quadrivalent, PF [address] [facility] 11/29/2022 10:45:32 Influenza, high-dose, quadrivalent, PF [address] [facility] 11/29/2022 10:45:32 COVID-19, mRNA, LNP-S, PF, 100 mcg/0.5mL dose or 50 mcg/0.25mL dose [address] [facility] 11/29/2022 10:45:32 COVID-19, mRNA, LNP-S, PF, 100 mcg/0.5mL dose or 50 mcg/0.25mL dose 1 completed ALBERTINA abdullahi, [facility] 11/29/2022 10:45:32 COVID-19, mRNA, LNP-S, PF, 100 mcg/0.5mL dose or 50 mcg/0.25mL dose 2 completed ALBERTINA abdullahi, [facility] 11/29/2022 10:45:32 COVID-19, mRNA, LNP-S, bivalent, PF, 50 mcg/0.5 mL or 25mcg/0.25 mL dose 2 completed ALBERTINA abdullahi, [facility] 11/29/2022 10:45:32 Tdap 7 completed ALBERTINA abdullahi, [facility] 11/29/2022 10:45:32 Pneumococcal conjugate PCV 13 0 completed ALBERTINA abdullahi, [facility] 11/29/2022 10:45:32 zoster recombinant 3 completed ALBERTINA abdullahi, [facility] 11/29/2022 14:01:35 Influenza, split virus, trivalent, preservative 8 completed Not Available [facility] 07/23/2023 14:09:00 zoster recombinant 3 completed Sim Santana MD [address] [place] [address], [phone], [facility] 03/20/2023 10:21:03 Past Encounters Encounter ID Performer Location Encounter Start Date Encounter Closed Date Diagnosis/Indication Diagnosis SNOMED-CT Code Diagnosis ICD10 Code Diagnosis IMO Codes Diagnosis Note [id number] LAURENCE ANAYA [facility] ([facility]) [address] [place] [address] 03/06/2025 17:07:06 03/09/2025 13:39:10 Acute upper respiratory infection 51479451 J06.9 2456 May use otc meds like zyrtec and fluticason e nasal spray as needed for symptoms. Return to clinic with any new or worsening symptoms. Health Concerns Section Related Observation LastModified by Organization Detai ls LastModified Time None Recorded Concern Status LastModified by Organization Details LastModified Time None Recorded Payers Encounter Date Sequence Insurance Name Policy Number Policy Adam Covered Member ID Adam Member ID Guarantor Name 03/06/2025 1 [employer] (MEDICARE REPLACEMENT/ ADVANTAGE - PPO) Colleen Longo [id number] Colleen Longo Notes Date Note Type Note Provider Name and Address Organization Details Recorded Time 03/06/2025 text/html ROS as noted in the HPI walk in ptPt has a cough, chest and head congestion, eye drainage and a headache for 3 weeks. Patient started using cough syrup and fluticasone nasal spray this AM to help with symptoms. Patient states that she coughs up infection once an hour. CARL CERVANTES, LAURENCE [address] [place], [address], [facility] 03/06/2025 17:42:58 OBGyn Episode No OBEpisode recorded.
--- OUTSIDE RECORDS SUMMARY | 2025-05-27 19:53 | XMS_ITS | Encounter Summary ---
Author Organization [facility] Address [address] [place] [address] Care Team Providers Care Gis Instructor Name Role Phone Unavailable Primary Care Provider Unavailabl e Reason for Visit * Reason Onset Date Comments Procedure 05/24/2025 Encounter Details Date Type Department Care Team (Late st Contact Info) Description 05/24/2025 Telephone [facility] [address] [place] [address] Francisca Marshall RN Procedure Social History Tobacco Use Types Packs/Day Years Used Date Smoking Tobacco: Never Smokeless Tobacco: Never Comments Unknown Sex and Gender Information Value Date Recorded Sex Assigned at Not on file 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 Gender Identity Not on file Sexual Orientation Not on file documented as of this encounter Plan of Treatment Upcoming Encounters Date Type Department Care Team (Late st Contact Info) Description 08/23/2025 1:00 PM CDT Office Visit [facility] [address] [place] [address] Louisa Penny MD [address] [place] [address] Carlin Ba ANP [address] [place] [address] documented as of this encounter Visit Diagnoses Not on filedocumented in this encounter
--- OUTSIDE RECORDS SUMMARY | 2025-05-27 19:53 | XMS_ITS | Encounter Summary ---
Author Organization [facility] Address [address] [place] [address] Care Team Providers Care Bilingual Speech Language Pathologist Name Role Phone Rustam Trammell MD Primary Care Provider [phone] Encounter Details Date Type Department Care Team (Latest Contact Info) Description 12/23/2000 Outpatient Historical [facility] OBAlbina [place] [address] [place] [address] Tera Ness MD NO ADDRESS ON FILE Gynecologic examination (Primary Dx); Circumscribe scleroderma; Screening for malignant neoplasm of the rectum Social History Tobacco Use Types Packs/Day Years Used Date Smoking Tobacco: Never Assessed Comments Unknown Sex and Gender Information Value Date Recorded Sex Assigned at Not on file Legal Sex Female 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 PATHOLOGIST Gender Identity Not on file Sexual Orientation Not on file documented as of this encounter Plan of Treatment Not on file documented as of this encounter Visit Diagnoses Diagnosis Gynecologic examination- Primary Gynecological examination Circumscribe scleroderma Circumscribed scleroderma Screening for malignant neoplasm of the rectum documented in this encounter Care Teams Bilingual Speech Language Pathologist Relationship Specialty Start Date End Date Rustam Trammell MD 8[address] [facility] 1 [place] [address] PCP - General Family Practice 11/07/20 documented as of this encounter
--- OUTSIDE RECORDS SUMMARY | 2025-05-27 19:53 | XMS_ITS | Encounter Summary ---
Author Organization [facility] Address [address] [place] [address] Care Team Providers Care Compensation And Hris Analyst Name Role Phone Unavailable Primary Care Provider Unavailabl e Reason for Visit * Reason Onset Date Comments Question 05/24/2025 Encounter Details Date Type Department Care Team (Late st Contact Info) Description 05/24/2025 Telephone [facility] [address] [facility] [address] [place] [address] Louisa Penny MD [address] [facility] [address] [place] [address] Question Social History Tobacco Use Types Packs/Day Years Used Date Smoking Tobacco: Never Smokeless Tobacco: Never Comments Unknown Sex and Gender Information Value Date Recorded Sex Assigned at Not on file 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 Is asking for a call from the Nurse to discuss, please. Thank you Cardiology Medical Imaging Director: Jenny Nair ER OPERATOR documented in this encounter Plan of Treatment Upcoming Encounters Date Type Department Care Team (Late st Contact Info) Description 08/23/2025 1:00 PM CDT Office Visit [facility] [address] [place] [address] Louisa Penny MD [address] [facility] [address] [place] [address] Carlin Ba, [place] [address] [place] [address] documented as of this encounter Visit Diagnoses Not on filedocumented in this encounter
--- OUTSIDE RECORDS SUMMARY | 2025-05-27 19:53 | XMS_ITS | Encounter Summary ---
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
--- OUTSIDE RECORDS SUMMARY | 2025-05-27 19:53 | XMS_ITS | Encounter Summary ---
Author Organization [facility] Address [address] [place] [address] Care Team Providers Care Technical Sales Manager Name Role Phone Rustam Trammell MD Primary Care Provider [phone] Encounter Details Date Type Department Care Team (Latest Contact Info) Description 10/05/1999 Outpatient Historical [facility] OBSANDOVALN-Head [place] [address] [place] [address] Tera Ness MD NO ADDRESS ON FILE Gynecologic examination (Primary Dx); Vaginitis and vulvovaginitis, unspecified Social History Tobacco Use Types Packs/Day Years Used Date Smoking Tobacco: Never Assessed Comments Unknown Sex and Gender Information Value Date Recorded Sex Assigned at Not on file Legal Sex Female 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
[2025-05-27 19:54] LABS: Hematocrit 39.3 % (36-47); Hemoglobin 12.80 g/dL (11.27-16.99); Mean Corpuscular HGB Conc 32.6 g/dL (30-55); Mean Corpuscular Hemoglobin 29.1 pg (27-33); Mean Corpuscular Volume 89.3 fl (85-98); Nucleated Red Blood Cells % 0 %; Platelet Count 304 10^3/cmm (157-399); Red Blood Count 4.40 10^6/uL (3.85-5.65); White Blood Count 9.97 10^3/uL (3.29-11.43)
--- OUTSIDE RECORDS SUMMARY | 2025-05-27 19:54 | XMS_ITS | Continuity of Care Document ---
Author Organization [place] - Renny Hernandez [facility] Amaury, Joanne, [facility] ([facility]) Address [address] [place] [address] Care Team Providers Care Radiation Control Specialist Name Role Phone SANTANANAV JulioON Primary Care Provider TOMÁS HILL Referring Provider MARIO MAYER Referring Provider Assessment No assessment recorded. Plan of Treatment Reminders Order Date Submit Date Provider Last Modified By Organization Details Last Modified Time Details Appointments None record ed. Lab None record ed. Referral None record ed. Procedures None record ed. Surgeries None record ed. Imaging XR, chest, 2 view 025 03/25/20 [email or web address] [facility] ([facility]), [address] [place], [address], 13:48:30 Medication Orders None record ed. Patient TargetsNo targets recorded. Patient InstructionsNo instructions recorded. Reason for Referral None Reported. Results Created Date Observation Date Name Description Value Unit Range Abnormal Flag Note LastModifiedBy Organization Detail LastModifiedTime 03/24/20 25 03/24/2025 CBC WBC 6.2 x10 4.0-10 .5 Not Available [facility] [address], [address], 03/24/2025 14:19:16 03/24/20 25 03/24/2025 CBC RBC 4.49 x10 3.50-5 .50 Not Available [facility] [address] [facility], [place], [address], 03/24/2025 14:19:16 03/24/2003/24/2025 CBC HGB 14.1 g/dL 12.0-1 6.0 Not Available [facility] [address] [facility], [place], [address], 03/24/2025 14:19:16 03/24/2003/24/2025 CBC HCT 43.6 % 37.0-4 7.0 Not Available [facility] [address] [facility], [place], [address], 03/24/2025 14:19:16 03/24/2003/24/2025 CBC MCV 97.0 fL 80.0-9 9.9 Not Available [facility] [address] [facility], [place], [address], 03/24/2025 14:19:16 03/24/2003/24/2025 CBC MCH 31.4 pg 27.0-3 2.0 Not Available [facility] [address] [facility], [place], [address], 03/24/2025 14:19:16 03/24/2003/24/2025 CBC MCHC 32.4 g/dL 32.0-3 6.0 Not Available [facility] [address] [facility], [place], [address], 03/24/2025 14:19:16 03/24/2003/24/2025 CBC RDW 14.9 % 11.5-1 4.5 high Not Available [facility] [address] [facility], [place], [address], 03/24/2025 14:19:16 03/24/2003/24/2025 CBC plt 277.1 x10 140.0- 451.0 Not Available [facility] [address] [facility], [place], [address], 03/24/2025 14:19:16 03/24/2003/24/2025 CBC lymphocytes % 27.8 % 20.0-5 0.0 Not Available [facility] [address] [facility] [address], [place], [address], 03/24/2025 14:19:16 03/24/2003/24/2025 CBC granulcytes % 59.3 % 30.0-7 0.0 Not Available [facility] [address] [facility] [address], [place], [address], 03/24/2025 14:19:16 03/24/2003/24/2025 CBC monocytes % 7.8 % 2.0-16 .0 Not Available [facility] [address] [facility] [address], [place], [address], 03/24/2025 14:19:16 03/24/2003/24/2025 CBC granulcytes# 3.7 x10 Not Arabella ilable [facility] [address] [facility] [address], [place], [address], 03/24/2025 14:19:16 03/24/2003/24/2025 CBC lymphocytes # 1.7 x10 Not Available [facility] [address] [facility] [address], [place], [address], 03/24/2025 14:19:16 03/24/2003/24/2025 CBC monocytes # 0.5 x10 Not Avai lable [facility] [address] [facility] [address], [place], [address], 03/24/2025 14:19:16 03/24/2003/24/2025 LIVER PANEL (FEMA LE) total protein 7.6 g/dL 6.0-8. 5 Not Available [facility] [address] [facility], [place], [address], 03/24/2025 14:20:34 03/24/20 25 03/24/2025 LIVER PANEL (FEMA LE) total bilirubin 0.9 mg/dL 0.2-1. 3 Not Available [facility] [address] [facility], [place], [address], 03/24/2025 14:20:34 03/24/2003/24/2025 LIVER PANEL (FEMA LE) conj. bilirubin (direct) 0.00 mg/dL 0.00-0 .40 Not Available [facility] [address] [facility], [place], [address], 03/24/2025 14:20:34 03/24/20 25 03/24/2025 LIVER PANEL (FEMA LE) albumin 4.4 g/dL 3.5-5. 5 Not Available [facility] [address] [facility] Sangeeta [facility], [place], [address], 03/24/2025 14:20:34 03/24/20 25 03/24/2025 LIVER PANEL (FEMA LE) AST (SGOT) 64.0 U/L 0.0-46 .0 high Not Available [facility] [address] [facility] Sangeeta [facility], [place], [address], 03/24/2025 14:20:34 03/24/20 25 03/24/2025 LIVER PANEL (FEMA LE) altv (SGPT) 71.0 U/L 13.0-6 9.0 abnormal Not Available [facility] [address] [facility], [place], [address], 03/24/2025 14:20:34 03/24/20 25 03/24/2025 LIVER PANEL (FEMA LE) ALP phos 77.0 U/L 30.0-1 40.0 normal Not Available [facility] [address] [facility] [address], [address], 03/24/2025 14:20:34 03/24/20 25 03/25/2025 C-RENU CTIVE PROTE IN C-reactive protein <3.0 mg/L <8.0 normal Not Available [facility] [address] [place], [address], 03/25/2025 07:45:50 03/24/2003/24/2025 ESR (eryt hrocy te sedim entat ion rate) , blood SedRate 21 Not Available [facility] ([facility]) [address] [place], [address], 03/24/2025 13:08:57 03/24/20 25 03/24/2025 creat inine , blood creatinine 0.81 mg/dL 0.4-1. 5 normal Not Available [facility] ([facility]) [address] [place], [address], 03/24/2025 13:08:54 03/25/2003/25/2025 XR, chest , 2 view No observ ation record ed. [facility] ([facility]) [address] [place], [address], 03/25/2025 13:01:27 03/26/2003/25/2025 imagi ng/di agnos tic resul t No observ ation record ed. [facility] [address] [place], [address], 03/29/2025 15:17:06 Result Notes None recorded. Problems Name Problem SNOMED Code Status Onset Date Resolution Date Notes Provider Name and Address Organization Details Recorded Time Hyperlip idemia 96338755 Completed 201506/20/2015 Hyperlip idemia - Status is Inactive ; 06/20/19 16 1:22PM by Albertina Espinoza LPN, Annotati on/Adden dum; Promoted ; acuity set as *; Not Available [facility] 3 03:16:00 Hyperten sive disorder 13610289 Completed 201506/20/2015 Hyperten argelia - Status is Inactive ; 06/20/19 16 1:22PM by Albertina Espinoza LPN, Annotati on/Adden dum; Promoted ; acuity set as *; Not Available [facility] 3 03:16:03 Atrial fibrilla tion 52836152 Completed 202103/01/2022 Atrial Fibrilla tion - Status is Inactive ; 03/01/20 2:36PM by Inga Santana PA-C, Annotati on/Adden dum; Promoted ; acuity set as *; ATRIAL FIBRILLA TION - Status is Inactive ; Recorded 03/01/20 2:36PM by Inga Santana PA-C, Annotati on/Adden dum; Promoted ; acuity set as *; Not Available [facility] 3 03:16:03 Tobacco dependen ce syndrome 94001580 Completed 202103/01/2022 Tobacco use - Status is Inactive ; Recorded 03/01/20 22 2:58PM by Inga Santana PA-C, Annotati on/Adden dum; Promoted ; acuity set as *; Not Available [facility] 3 03:16:03 Morphea 519423177 Active 2022 MORPHEA; Recorded 07/13/19 23 12:08PM by Albertina Espinoza LPN, Office Visit; Promoted ; acuity set as *; Not Available [facility] 3 03:16:02 Goiter 8745282 Active 2022 goiter; goiter at age 9 or 10 began thyroid medicati on age 14; ALBERTINA abdullahi [facility] 5 12:10:06 Hypothyr oidism 16795217 Active 2022 ALBERTINA abdullahi [facility] 3 10:44:41 Lichen sclerosu s 884540575 Active 2022 ALBERTINA abdullahi, [facility] 3 10:44:50 Rheumato id arthriti s 18029160 Active 2022 ALBERTINA ESPINOZA null, [facility] 3 10:44:58 Supraven tricular tachycar akshat 6120135 Active 2022 ALBERTINA ESPINOZA null, [facility] 3 10:45:05 History of herpes zoster 46766577002 9108 Active 2022 Sim Santana MD [address] [place] [address], [address] , [facility] 3 11:33:34 Paroxysm al atrial fibrilla tion 852267999 Active 2022 ALBERTINA abdullahi, [facility] 5 12:10:23 Chronic kidney disease stage 3A 514191550 Active 2024 ALBERTINA abdullahi, [facility] 5 12:42:15 Acute pulmonar y embolism 140762112 Active 2024 ALBERTINA abdullahi, [facility] 5 15:17:25 Aneurysm of ascendin g aorta 073770067 Active 2024 Sim Santana MD [address] [place] [address], [address] , [facility] 5 12:29:05 Pulmonar y embolism 78027488 Active 2024 Sim Santana MD [address] [place] [address], [address] , [facility] 12:29:14 Hiatal hernia 71427679 Active 2024 Sim Santana MD [address] [place] [address], [address] , [facility] 12:30:02 Stenosis of interver tebral foramina 42874019592 9 Active 2024 Sim Santana MD [address] [place] [address], [address] , [facility] 12:30:28 Problem Notes None recorded. Procedures Surgical History Date Name Laterality Status Provider Name and Address Organization Details Recorded Time repair of femoral hernia completed [facility], DelfinoLAneta 11/29/2022 10:48:22 Carpal tunnel surgery completed [facility], Joanne 11/29/2022 10:48:33 Imaging Results [...] Dalton; 0; Recorded 07/13/19 23 12:09PM by Ablertina Espinoza LPN, Office Visit; Not Available Not [...] Albertina Espinoza LPN (Authori seven through Sim Santana MD), Annotati on/Adden dum; [...] Organization Details Last Updated DateTime 166.37 cm 25.6 kg/m2 98664.4 1 g 97.9 [degF] 91 /min 98 % 128/68 mm[Hg] ALBERTINA ESPINOZA [facility] 12:35:03 Social History Question Answer Notes LastModified by [employer] Details LastModified Time Tobacco Smoking Status Never Smoker ALBERTINA ESPINOZA [facility] 11/29/2022 10:47:51 What Was The Date Of Your Most Recent Tobacco Screening? 04/18/2025 [email or web address] Information not available 04/18/2025 Sex: Unknown Functional Status Question Answer Note LastModified by [employer] Details LastModified Time Do you use any illicit or recreational drugs? No [email or web address] Information not available 11/29/2022 Do you or have you ever used any other forms of tobacco or nicotine? No Information not available 04/30/2023 What is your level of alcohol consumption? None [email or web address] Information not available 11/29/2022 Do you or have you ever used any nicotine-free cigarettes, vape, or chewing tobacco? No [email or web address] Information not available 08/18/2024 Mental Status None recorded. Family History Relationship Description Onset Age of this Age Resolved Age Notes LastModified by Organization Details LastModified Time Mother Malignant neoplasm of colon [email or web address] Not available 11/29 10:46:53 Brother Autoimmune thyroiditis [email or web address] Not available 10:47:14 Brother Malignant neoplasm of colon [email or web address] Not available 11/29 10:49:54 Sister Autoimmune thyroiditis [email or web address] Not available 10:47:14 Sister Cardiomyopat hy [facility] Cardio myopat hy [email or web address] Not available 04/21/2025 12:27:31 Medical History No medical history recorded. Gynecological HistoryNo gynecological history recorded. Obstetrics History GPAL:G 0 P 0 0 0 0 Immunizations Vaccine Type Date Status Note Provider Nam e and Address Organization Details Recorded Time Influenza, recombinant, quadrivalent, PF 0 completed ALBERTINA abdullahi [facility] 11/29/2022 10:45:32 Influenza, high-dose, quadrivalent, PF 2 completed ALBERTINA abdullahi [facility] 11/29/2022 10:45:32 COVID-19, mRNA, LNP-S, PF, 100 mcg/0.5mL dose or 50 mcg/0.25mL dose 1 completed ALBERTINA abdullahi [facility] 11/29/2022 10:45:32 COVID-19, mRNA, LNP-S, PF, 100 mcg/0.5mL dose or 50 mcg/0.25mL dose 1 completed ALBERTINA abdullahi [facility] 11/29/2022 10:45:32 COVID-19, mRNA, LNP-S, PF, 100 mcg/0.5mL dose or 50 mcg/0.25mL dose 2 completed ALBERTINA abdullahi, [facility] 11/29/2022 10:45:32 COVID-19, mRNA, LNP-S, bivalent, PF, 50 mcg/0.5 mL or 25mcg/0.25 mL dose 2 completed ALBERTINA abdullahi, [facility] 11/29/2022 10:45:32 Tdap 7 completed ALBERTINA abdullahi, [facility] 11/29/2022 10:45:32 Pneumococcal conjugate PCV 13 0 completed ALBERTINA abdullahi, [facility] 11/29/2022 10:45:32 zoster recombinant 3 completed ALBERTINA abdullahi, [facility] 11/29/2022 14:01:35 Influenza, split virus, trivalent, preservative 8 completed Not Available [facility] 07/23/2023 14:09:00 zoster recombinant 3 completed Sim Santana MD [address] [place] [address], [phone], [facility] 03/20/2023 10:21:03 Past Encounters Encounter ID Performer Location Encounter Start Date Encounter Closed Date Diagnosis/Indication Diagnosis SNOMED-CT Code Diagnosis ICD10 Code Diagnosis IMO Codes Diagnosis Note [id number] LAURENCE ANAYA [facility] ([facility]) [address] [place] [address] 03/06/2025 17:07:06 03/09/2025 13:39:10 Acute upper respiratory infection 74774133 J06.9 2456 May use otc meds like zyrtec and fluticason e nasal spray as needed for symptoms. Return to clinic with any new or worsening symptoms. [id number] Sim Santana MD [facility] ([facility]) [address] [place] [address] 03/24/2025 13:05:16 03/25/2025 09:34:12 Long-term current use of drug therapy 187680322 Z79.795 [id number] Sim Santana MD [facility] ([facility]) [address] [place] [address] 03/25/2025 12:28:41 03/25/2025 13:01:48 Chronic kidney disease stage 3A 679447775 N18.31 08432742 added for historical accuracy not addressed today but is an active problem. Persistent cough 6293937 02 R05.3 326562 resume your allergy meds. has now had these sx's start early fall for 3 straight years. f/u if fever wheezing or symptoms worsening. Health Concerns Section Related Observation LastModified by Organization Detai ls LastModified Time None Recorded Concern Status LastModified by Organization Details LastModified Time None Recorded Payers Encounter Date Sequence Insurance Name Policy Number Policy Adam Covered Member ID Adam Member ID Guarantor Name 03/25/2025 1 [employer] (MEDICARE REPLACEMENT/ ADVANTAGE - PPO) Colleen Longo [id number] Colleen Longo Notes Date Note Type Note Provider Name and Address Organization Details Recorded Time 03/25/20 25 text/htm l CoughReported by PatientHPIFor [...] ROS as noted in the HPI Sim Santana MD [address] [place] [address], [phone], [facility] L.L[facility]eta 03/25/2025 12:57:38 OBGyn Episode No OBEpisode recorded.
--- OUTSIDE RECORDS SUMMARY | 2025-05-27 19:54 | XMS_ITS | Continuity of Care Document ---
Author Organization MICHELL Renny Hernandez [facility], L.LMatildeCMatilde, [facility] ([facility]) Address [address] [place] [address] Care Team Providers Care Bureau Director Name Role Phone SIM SANTANA Primary Care Provider TOMÁS HILL Referring Provider MARIO MAYER Referring Provider [phone] Assessment No assessment recorded. Plan of Treatment Reminders Order Date Submit Date Provider Last Modified By Organization Details Last Modified Time Details Appointments None recorded. Lab None recorded. Referral cardiologis t referral 2024 025 [email or web address] 2 Forrest Esqueda MD, [address] [place] [address], [address], 5 16:00:15 Procedures None recorded. Surgeries None recorded. Imaging None recorded. Medication Orders Eliquis 5 mg tablet 2024 025 [facility] [place], [address] [place], [address], 5 14:09:26 Patient TargetsNo targets recorded. Patient InstructionsNo instructions recorded. Reason for Referral Director Medical Economics Referral for Pa roxysmal atrial fibrillation Referring Physician: Sim Santana, Family Medicine, Encounter Date: 04/21/2025 Results Created Date Observation Date Name Description Value Unit Range Abnormal Flag Note LastModifiedBy Organization Detail LastModifiedTime 03/24/20 25 03/24/2025 CBC WBC 6.2 x10 4.0-10 .5 Not Available [facility] [address], [place], [address], 03/24/2025 14:19:16 03/24/2003/24/2025 CBC RBC 4.49 x10 3.50-5 .50 Not Available [facility] [address] [facility], [place], [address], 03/24/2025 14:19:16 03/24/2003/24/2025 CBC HGB 14.1 g/dL 12.0-1 6.0 Not Available [facility] [address] [facility], [place], [address], 03/24/2025 14:19:16 03/24/2003/24/2025 CBC HCT 43.6 % 37.0-4 7.0 Not Available [facility] [address] [facility], [place], [address], 03/24/2025 14:19:16 03/24/2003/24/2025 CBC MCV 97.0 fL 80.0-9 9.9 Not Available [facility] [address] [facility], [place], [address], 03/24/2025 14:19:16 03/24/2003/24/2025 CBC MCH 31.4 pg 27.0-3 2.0 Not Available [facility] [address] [facility], [place], [address], 03/24/2025 14:19:16 03/24/2003/24/2025 CBC MCHC 32.4 g/dL 32.0-3 6.0 Not Available [facility] [address] [facility], [place], [address], 03/24/2025 14:19:16 03/24/2003/24/2025 CBC RDW 14.9 % 11.5-1 4.5 high Not Available [facility] [address] [place] [facility], [place], [address], 03/24/2025 14:19:16 03/24/2003/24/2025 CBC plt 277.1 x10 140.0- 451.0 Not Available [facility] [address] [facility] [address], [place], [address], 03/24/2025 14:19:16 03/24/2003/24/2025 CBC lymphocytes % 27.8 % 20.0-5 0.0 Not Available [facility] [address] [facility] [address], [place], [address], 03/24/2025 14:19:16 03/24/2003/24/2025 CBC granulcytes % 59.3 % 30.0-7 0.0 Not Available [facility] [address] [facility] [address], [place], [address], 03/24/2025 14:19:16 03/24/2003/24/2025 CBC monocytes % 7.8 % 2.0-16 .0 Not Available [facility] [address] [facility] [address], [place], [address], 03/24/2025 14:19:16 03/24/2003/24/2025 CBC granulcytes# 3.7 x10 Not Arabella ilable [facility] [address] [facility] [address], [place], [address], 03/24/2025 14:19:16 03/24/2003/24/2025 CBC lymphocytes # 1.7 x10 Not Available [facility] [address] [facility] [address], [place], [address], 03/24/2025 14:19:16 03/24/20 25 03/24/2025 CBC monocytes # 0.5 x10 Not Avai lable [facility] [address] [facility] [address], [place], [address], 03/24/2025 14:19:16 03/24/20 25 03/24/2025 LIVER PANEL (FEMA LE) total protein 7.6 g/dL 6.0-8. 5 Not Available [facility] [address] [facility], [place], [address], 03/24/2025 14:20:34 03/24/20 25 03/24/2025 LIVER PANEL (FEMA LE) total bilirubin 0.9 mg/dL 0.2-1. 3 Not Available [facility] [address] [facility], [place], [address], 03/24/2025 14:20:34 03/24/20 25 03/24/2025 LIVER PANEL (FEMA LE) conj. bilirubin (direct) 0.00 mg/dL 0.00-0 .40 Not Available [facility] [address] [facility], [place], [address], 03/24/2025 14:20:34 03/24/20 25 03/24/2025 LIVER PANEL (FEMA LE) albumin 4.4 g/dL 3.5-5. 5 Not Available [facility] 5 [facility], [place], [address], 03/24/2025 14:20:34 03/24/20 25 03/24/2025 LIVER PANEL (FEMA LE) AST (SGOT) 64.0 U/L 0.0-46 .0 high Not Available [facility] [address] [facility] [facility], [place], [address], 03/24/2025 14:20:34 03/24/20 25 03/24/2025 LIVER PANEL (FEMA LE) altv (SGPT) 71.0 U/L 13.0-6 9.0 abnormal Not Available [facility] [address] [facility], [place], [address], 03/24/2025 14:20:34 03/24/20 25 03/24/2025 LIVER PANEL (FEMA LE) ALP phos 77.0 U/L 30.0-1 40.0 normal Not Available [facility] [address] [facility], [place], [address], 03/24/2025 14:20:34 03/24/20 25 03/25/2025 C-RENU CTIVE PROTE IN C-reactive protein <3.0 mg/L <8.0 normal Not Available [facility] [address] , [place], [address], 03/25/2025 07:45:50 03/24/20 25 03/24/2025 ESR (eryt hrocy te sedim entat ion rate) , blood SedRate 21 Not Available [facility] [address] [place] [address], [address], 03/24/2025 13:08:57 03/24/20 25 03/24/2025 creat inine , blood creatinine 0.81 mg/dL 0.4-1. 5 normal Not Available [facility] ([facility]) [address] [place] [address], [address], 03/24/2025 13:08:54 03/25/2003/25/2025 XR, chest , 2 view No observ ation record ed. [facility] ([facility]) [address] [place] [address], [phone], 03/25/2025 13:01:27 03/26/20 25 03/25/2025 imagi ng/di agnos tic resul t No observ ation record ed. [facility] [address] [place], [address], 03/29/2025 15:17:06 Result Notes None recorded. Problems Name Problem SNOMED Code Status Onset Date Resolution Date Notes Provider Name and Address Organization Details Recorded Time Hyperlip idemia 88853884 Completed 201506/20/2015 Hyperlip idemia - Status is Inactive ; 06/20/19 16 1:22PM by Albertina Espinoza LPN, Annotati on/Adden dum; Promoted ; acuity set as *; Not Available [facility] 3 03:16:00 Hyperten sive disorder 53444209 Completed 201506/20/2015 Hyperten argelia - Status is Inactive ; 06/20/19 16 1:22PM by Albertina Espinoza LPN, Annotati on/Adden dum; Promoted ; acuity set as *; Not Available [facility] 3 03:16:03 Atrial fibrilla tion 71095643 Completed 202103/01/2022 Atrial Fibrilla tion - Status is Inactive ; 03/01/20 22 2:36PM by Inga Santana PA-C, Annotati on/Adden dum; Promoted ; acuity set as *; ATRIAL FIBRILLA TION - Status is Inactive ; Recorded 03/01/20 22 2:36PM by Inga Santana PA-C, Annotati on/Adden dum; Promoted ; acuity set as *; Not Available [facility] 3 03:16:03 Tobacco dependen ce syndrome 30202139 Completed 202103/01/2022 Tobacco use - Status is Inactive ; Recorded 03/01/20 2:58PM by Inga Santana PA-C, Annotati on/Adden dum; Promoted ; acuity set as *; Not Available [facility] 3 03:16:03 Morphea 754913765 Active 2022 MORPHEA; Recorded 07/13/19 12:08PM by Albertina Espinoza LPN, Office Visit; Promoted ; acuity set as *; Not Available [facility] 3 03:16:02 Goiter 4268647 Active 2022 goiter; goiter at age 9 or 10 began thyroid medicati on age 14; ALBERTINA abdullahi, [facility] 5 12:10:06 Hypothyr oidism 62499927 Active 2022 ALBERTINA abdullahi, [facility] 3 10:44:41 Lichen sclerosu s 007742889 Active 2022 ALBERTINA ESPINOZA null, [facility] 3 10:44:50 Rheumato id arthriti s 43349686 Active 2022 ALBERTINA abdullahi, [facility] 3 10:44:58 Supraven tricular tachycar akshat 9415351 Active 2022 ALBERTINA abdullahi, [facility] 3 10:45:05 History of herpes zoster 06164825921 9108 Active 2022 Sim Santana MD [address] [place] [address], [address] , [facility] 3 11:33:34 Paroxysm al atrial fibrilla tion 713288117 Active 2022 ALBERTINA abdullahi, [facility] 5 12:10:23 Chronic kidney disease stage 3A 428599723 Active 2024 ALBERTINA abdullahi, [facility] 5 12:42:15 Acute pulmonar y embolism 387755604 Active 2024 ALBERTINA abdullahi, [facility] 5 15:17:25 Aneurysm of ascendin g aorta 917022235 Active 2024 Sim Santana MD [address] [place] [address], [address] [place] [address] , [facility] 12:29:05 Pulmonar y embolism 62795670 Active 2024 Sim Santana MD [address] [place] [address], [address] , [facility], LMatildeLMatildeC. 12:29:14 Hiatal hernia 86712190 Active 2024 Sim Santana MD [address] [place] [address], [address] , [facility], Joanne 12:30:02 Stenosis of interver tebral foramina 74964339555 9 Active 2024 Sim Santana MD [address] [place] [address], [address] , [facility], LMason 12:30:28 Problem Notes None recorded. Procedures Surgical History Date Name Laterality Status Provider Name and Address Organization Details Recorded Time repair of femoral hernia completed [facility], Joanne 11/29/2022 10:48:22 Carpal tunnel surgery completed [facility], Joanne 11/29/2022 10:48:33 Imaging Results None recorded. [...] mass index (BMI) Body weight Body temperature Oxygen saturation Heart rate Systolic And Diastolic Provider Name and Address Organization Details Last Updated DateTime 5 166.37 cm 26.1 kg/m2 69975.1 9 g 97.4 [degF] 95 % 78 /min 136/84 mm[Hg] ALBERTINA ESPINOZA [facility]LMat[facility]CMatilde 5 11:55:22 Social History Question Answer Notes LastModified by Organizat ion Details LastModified Time Tobacco Smoking Status Never Smoker ALBERTINA abdullahi [facility]ilde 11/29/2022 10:47:51 What Was The Date Of Your Most Recent Tobacco Screening? 04/18/2025 [email or web address] Information not available 04/18/2025 Sex: Unknown Functional Status Question Answer Note LastModified by Organizat ion Details LastModified Time Do you use any illicit or recreational drugs? No [email or web address] Information not available 11/29/2022 Do you or have you ever used any other forms of tobacco or nicotine? No [email or web address] Information not available 04/30/2023 What is your level of alcohol consumption? None [email or web address] Information not available 11/29/2022 Do you or have you ever used any nicotine-free cigarettes, vape, or chewing tobacco? No [email or web address] Information not available 08/18/2024 Mental Status None recorded. Family History Relationship Description Onset Age of this Age Resolved Age Notes LastModified by Organization Details LastModified Time Mother Malignant neoplasm of colon Not available 11/29 10:46:53 Brother Autoimmune thyroiditis [email or web address] Not available 10:47:14 Brother Malignant neoplasm of colon [email or web address] Not available 11/29 10:49:54 Sister Autoimmune thyroiditis [email or web address] Not available 10:47:14 Sister Cardiomyopat hy Yamagu chi's Cardio myopat hy Not available 04/21/2025 12:27:31 Medical History No medical history recorded. Gynecological HistoryNo gynecological history recorded. Obstetrics History GPAL:G 0 P 0 0 0 0 Immunizations Vaccine Type Date Status Note Provider Nam e and Address Organization Details Recorded Time Influenza, recombinant, quadrivalent, PF 0 completed ALBERTINA abdullahi [facility] 11/29/2022 10:45:32 Influenza, high-dose, quadrivalent, PF 2 completed ALBERTINA abdullahi [facility] 11/29/2022 10:45:32 COVID-19, mRNA, LNP-S, PF, 100 mcg/0.5mL dose or 50 mcg/0.25mL dose 1 completed ALBERTINA abdullahi [facility] 11/29/2022 10:45:32 COVID-19, mRNA, LNP-S, PF, 100 mcg/0.5mL dose or 50 mcg/0.25mL dose 1 completed ALBERTINA abdullahi, [facility] 11/29/2022 10:45:32 COVID-19, mRNA, LNP-S, PF, 100 mcg/0.5mL dose or 50 mcg/0.25mL dose 2 completed ALBERTINA abdullahi, [facility] 11/29/2022 10:45:32 COVID-19, mRNA, LNP-S, bivalent, PF, 50 mcg/0.5 mL or 25mcg/0.25 mL dose 2 completed ALBERTINA abdullahi, [facility] 11/29/2022 10:45:32 Tdap 7 completed ALBERTINA abdullahi, [facility] 11/29/2022 10:45:32 Pneumococcal conjugate PCV 13 0 completed ALBERTINA abdullahi, [facility] 11/29/2022 10:45:32 zoster recombinant 3 completed ALBERTINA abdullahi, [facility] 11/29/2022 14:01:35 Influenza, split virus, trivalent, preservative 8 completed Not Available [facility] 07/23/2023 14:09:00 zoster recombinant 3 completed Sim Santana MD [address] [place] [address], [address], [facility] 03/20/2023 10:21:03 Past Encounters Encounter ID Performer Location Encounter Start Date Encounter Closed Date Diagnosis/Indication Diagnosis SNOMED-CT Code Diagnosis ICD10 Code Diagnosis IMO Codes Diagnosis Note [id number] Sim Santana MD [facility] ([facility]) [address] [place] [address] 03/24/2025 13:05:16 03/25/2025 09:34:12 Long-term current use of drug therapy 235614251 Z79.187 [id number] Sim Santana MD [facility] ([facility]) [address] [place] [address] 03/25/2025 12:28:41 03/25/2025 13:01:48 Chronic kidney disease stage 3A 589676417 N18.31 34139527 added for historical accuracy not addressed today but is an active problem. Persistent cough 9942248 02 R05.3 409469 resume your allergy meds. has now had these sx's start early fall for 3 straight years. f/u if fever wheezing or symptoms worsening. [id number] DIANELYS AMOS APRN [facility] ([facility]) [address] [place] [phone] 04/18/2025 10:22:36 04/18/2025 14:32:35 Neck pain 58975336 M54.2 67278 neck pressure [id number] Sim Santana MD [facility] ([facility]) [address] [place] [phone] 04/21/2025 11:46:15 04/26/2025 09:40:51 Pulmonary embolism 21626711 I26.99 6237909660 Paroxysmal atrial fibrillation 864157442 I48.0 Ablation was offered to her 30 years ago she says.i have long discussed and asked her to consider taking eliquis solely for the afib. given the unprovoked pe and paroxysmal afib she is a candidate for indefinite anticoagul ation. Aneurysm o f ascending aorta 332968681 I71.21 0670260600 Hiatal hernia 38808767 K 44.9 9218 Stenosis o f intervertebral foramina 5187753540 09 M48.02 [id number] Health Concerns Section Related Observation LastModified by Organization Detai ls LastModified Time None Recorded Concern Status LastModified by Organization Details LastModified Time None Recorded Payers Encounter Date Sequence Insurance Name Policy Number Policy Adam Covered Member ID Adam Member ID Guarantor Name 04/21/2025 1 [employer] (MEDICARE REPLACEMENT/ ADVANTAGE - PPO) Colleen Longo [id number] Colleen Longo Notes Date Note Type Note Provider Name and Address Organization Details Recorded Time 5 text/html Atrial FibrillationReported by PatientHPIFor duration, patient reportshas noted for years. For alleviating factors, patient reportsmedication. For associated symptoms, patient reportsno chest discomfort,no dyspnea,no associated dizziness, andno awareness of palpitation (patient reports that starting yesterday at 7:30 she felt her heart rate go back into normal rhythm and has stayed there).Pt was dx with 3 small pulmonary emboli. She was started on eliquis. Pt states that yesterday when she woke up she had a very sore spot on her left jehovah's witness area and has spread into the left ear today and is causing an ear ache. She has now been off of her methotrexate for [address] Dalton said that as soon as she is done with her ABX, she will get to start the methotrexate again. ROS as noted in the [facility] hospital f/u: Pulmonary embolism, atrial fibrillation Sim Santana MD [address] [place] [address], [phone], [facility] 04/21/2025 12:44:31 OBGyn Episode No OBEpisode recorded.
--- OUTSIDE RECORDS SUMMARY | 2025-05-27 19:54 | XMS_ITS | Data Portability ---
Author Organization MICHELL Renny Hernandez [facility], MatildeLMatildeMatilde, [facility] Address [address] [place] [address] Care Team Providers Care Field Laborer Name Role Phone TRAMMELLSIM Julio Primary Care Provider TOMÁS HILL Referring Provider [phone] MARIO MAYER Referring Provider Assessment No assessment recorded. Plan of Treatment Reminders Order Date Submit Date Provider Last Modified By Organization Details Last Modified Time Details Appointments None recorded. Lab CBC 2024 025 [facility], [address] [place] [address], [facility] [address], [address], 14:19:16 C-reactive protein, quantitativ e, serum or plasma 2024 025 ZIMMERMAN [facility], [address] [place] [address], [facility] [address] [place], [address], 07:45:50 creatinine, blood 2024 025 [facility] ([facility]), [address] [place] [address], [phone], 5 14:21:11 ESR (erythrocyt e sedimentati on rate), blood 2024 025 [facility] ([facility]), [address] [place] [address], [address], 15:17:02 hepatic function panel, serum 2024 025 [facility], [address], [facility] 1, [place], [address], 14:20:34 Referral cardiologis t referral 2024 025 [email or web address] 2 Forrest Esqueda MD, [address] [place], [address], 16:00:15 Procedures None recorded. Surgeries None recorded. Imaging XR, chest, 2 view 2024 [email or web address] 5 [facility] ([facility]), [address] [place], [address], 13:48:30 Medication Orders Eliquis 5 mg tablet 2024 025 [facility] [place], [address] [place], [address], 14:09:26 amoxicillin 875 mg-potassiu m clavulanate 125 mg tablet 2024 025 [facility], [address], [place], [address], 05:01:29 Patient TargetsNo targets recorded. Patient Instructions Encounter Date Encounter Id Patient Instructions Last Modified By Organization Details Last Modified Time 04/18/2025 [id number] As she describes it feels like it is going to explode when she bends forward- I am going to send her to ER for further eval [email or web address] Not available 04/18/2025 11:18:14 Reason for Referral Sample Hand Referral for Pa roxysmal atrial fibrillation Referring Physician: Sim Trammell, Family Medicine, Encounter Date: 04/21/2025 Results Created Date Observation Date Name Description Value Unit Range Abnormal Flag Note LastModifiedBy Organization Detail LastModifiedTime 03/24/2003/24/2025 CBC WBC 6.2 x10 4.0-10 .5 Not Available [facility] [address], [place], [address], 03/24/2025 14:19:16 03/24/2003/24/2025 CBC RBC 4.49 x10 3.50-5 .50 Not Available [facility] [address], [place], [address], 03/24/2025 14:19:16 03/24/2003/24/2025 CBC HGB 14.1 g/dL 12.0-1 6.0 Not Available [facility] [address], [place], [address], 03/24/2025 14:19:16 03/24/2003/24/2025 CBC HCT 43.6 % 37.0-4 7.0 Not Available [facility] [address], [place], [address], 03/24/2025 14:19:16 03/24/2003/24/2025 CBC MCV 97.0 fL 80.0-9 9.9 Not Available [facility] [address], [place], [address], 03/24/2025 14:19:16 03/24/2003/24/2025 CBC MCH 31.4 pg 27.0-3 2.0 Not Available [facility] [address], [place], [address], 03/24/2025 14:19:16 03/24/2003/24/2025 CBC MCHC 32.4 g/dL 32.0-3 6.0 Not Available [facility] [address], [place], [address], 03/24/2025 14:19:16 03/24/2003/24/2025 CBC RDW 14.9 % 11.5-1 4.5 high Not Available [facility] [address], [place], [address], 03/24/2025 14:19:16 03/24/2003/24/2025 CBC plt 277.1 x10 140.0- 451.0 Not Available [facility] [address], [place], [address], 03/24/2025 14:19:16 03/24/2003/24/2025 CBC lymphocytes % 27.8 % 20.0-5 0.0 Not Available [facility] [address] [address], [place], [address], 03/24/2025 14:19:16 03/24/2003/24/2025 CBC granulcytes % 59.3 % 30.0-7 0.0 Not Available [facility] [address], [place], [address], 03/24/2025 14:19:16 03/24/2003/24/2025 CBC monocytes % 7.8 % 2.0-16 .0 Not Available [facility] [address], [place], [address], 03/24/2025 14:19:16 03/24/2003/24/2025 CBC granulcytes# 3.7 x10 Not Arabella ilable [facility] [address], [place], [address], 03/24/2025 14:19:16 03/24/2003/24/2025 CBC lymphocytes # 1.7 x10 Not Available [facility] [address] [facility] 1, [place], [address], 03/24/2025 14:19:16 03/24/20 25 03/24/2025 CBC monocytes # 0.5 x10 Not Avai labtatum [facility] [address] [place] [facility], [place], [address], 03/24/2025 14:19:16 03/24/20 25 03/24/2025 LIVER PANEL (FEMA LE) total protein 7.6 g/dL 6.0-8. 5 Not Available [facility] [address] [place] [facility], [place], [address], 03/24/2025 14:20:34 03/24/20 25 03/24/2025 LIVER PANEL (FEMA LE) total bilirubin 0.9 mg/dL 0.2-1. 3 Not Available [facility] [address] [facility], [place], [address], 03/24/2025 14:20:34 03/24/2003/24/2025 LIVER PANEL (FEMA LE) conj. bilirubin (direct) 0.00 mg/dL 0.00-0 .40 Not Available [facility] [address] [facility], [place], [address], 03/24/2025 14:20:34 03/24/20 25 03/24/2025 LIVER PANEL (FEMA LE) albumin 4.4 g/dL 3.5-5. 5 Not Available [facility] [address] [place] [facility], [place], [address], 03/24/2025 14:20:34 03/24/20 25 03/24/2025 LIVER PANEL (FEMA LE) AST (SGOT) 64.0 U/L 0.0-46 .0 high Not Available [facility] [address], [place], [address], 03/24/2025 14:20:34 03/24/20 25 03/24/2025 LIVER PANEL (FEMA LE) altv (SGPT) 71.0 U/L 13.0-6 9.0 abnormal Not Available [facility] [address] [facility] [address], [place], [address], 03/24/2025 14:20:34 03/24/20 25 03/24/2025 LIVER PANEL (FEMA LE) ALP phos 77.0 U/L 30.0-1 40.0 normal Not Available [facility] [address] [facility] [address], [place], [address], 03/24/2025 14:20:34 03/24/20 25 03/25/2025 C-RENU CTIVE PROTE IN C-reactive protein <3.0 mg/L <8.0 normal Not Available [facility] [address] [place], [address], 03/25/2025 07:45:50 03/24/2003/24/2025 ESR (eryt hrocy te sedim entat ion rate) , blood SedRate 21 Not Available [facility] ([facility]) [address] [place] [address], [address], 03/24/2025 13:08:57 03/24/2003/24/2025 creat inine , blood creatinine 0.81 mg/dL 0.4-1. 5 normal Not Available [facility] ([facility]) [address] [place], [address], 03/24/2025 13:08:54 03/25/20 25 03/25/2025 XR, chest , 2 view No observ ation record ed. MARY [facility] ([facility]) [address] [place] [address], [address], 03/25/2025 13:01:27 03/26/20 25 03/25/2025 imagi ng/di agnos tic resul t No observ ation record ed. [facility] [address] [place], [address], 03/29/2025 15:17:06 Result Notes None recorded. Problems Name Problem SNOMED Code Status Onset Date Resolution Date Notes Provider Name and Address Organization Details Recorded Time Hyperlip idemia 72105970 Completed 201506/20/2015 Hyperlip idemia - Status is Inactive ; 06/20/19 16 1:22PM by Albertina Espinoza LPN, Dodie on/Adden dum; Promoted ; acuity set as *; Not Available [facility] 3 03:16:00 Hyperten sive disorder 35800693 Completed 201506/20/2015 Hyperten argelia - Status is Inactive ; 06/20/19 16 1:22PM by Albertina Espinoza LPN, Annotati on/Adden dum; Promoted ; acuity set as *; Not Available [facility] 3 03:16:03 Atrial fibrilla tion 82126156 Completed 202103/01/2022 Atrial Fibrilla tion - Status is Inactive ; 03/01/20 22 2:36PM by Inga Trammell PA-C, Annotati on/Adden dum; Promoted ; acuity set as *; ATRIAL FIBRILLA TION - Status is Inactive ; Recorded 03/01/20 22 2:36PM by Inga Trammell PA-C, Teresaati on/Adden dum; Promoted ; acuity set as *; Not Available [facility] 3 03:16:03 Tobacco dependen ce syndrome 25535884 Completed 202103/01/2022 Tobacco use - Status is Inactive ; Recorded 03/01/20 22 2:58PM by Inga Trammell PA-C, Annotati on/Adden dum; Promoted ; acuity set as *; Not Available [facility] 3 03:16:03 Morphea 999278059 Active 2022 MORPHEA; Recorded 07/13/19 23 12:08PM by Albertina Espinoza LPN, Office Visit; Promoted ; acuity set as *; Not Available [facility] 3 03:16:02 Goiter 3554157 Active 2022 goiter; goiter at age 9 or 10 began thyroid medicati on age 14; ALBERTINA abdullahi, [facility] 5 12:10:06 Hypothyr oidism 29240531 Active 2022 ALBERTINA ESPINOZA null, [facility] 3 10:44:41 Lichen sclerosu s 751812577 Active 2022 ALBERTINA abdullahi, [facility] 3 10:44:50 Rheumato id arthriti s 53767573 Active 2022 ALBERTINA abdullahi, [facility] 3 10:44:58 Supraven tricular tachycar akshat 5739255 Active 2022 ALBERTINA abdullahi, [facility] 3 10:45:05 History of herpes zoster 40546162845 9108 Active 2022 Sim Trammell MD [address] [place] [address], [address] [facility] 3 11:33:34 Paroxysm al atrial fibrilla tion 999007132 Active 2022 ALBERTINA abdullahi, [facility] 5 12:10:23 Chronic kidney disease stage 3A 226356204 Active 2024 ALBERTINA abdullahi, [facility] 5 12:42:15 Acute pulmonar y embolism 328072334 Active 2024 ALBERTINA abdullahi, [facility] 15:17:25 Aneurysm of ascendin g aorta 362581428 Active 2024 Sim Trammell MD [address] [place] [address], [address] [place] [address] , [facility] 12:29:05 Pulmonar y embolism 72767302 Active 2024 Sim Trammell MD [address] [place] [address] , [facility] 12:29:14 Hiatal hernia 28853367 Active 2024 Sim Trammell MD [address] [place] [address] , [facility] 12:30:02 Stenosis of interver tebral foramina 58190443409 9 Active 2024 Sim Trammell MD [address] [place] [address] , [facility] 12:30:28 Problem Notes None recorded. Procedures Surgical History Date Name Laterality Status Provider Name and Address Organization Details Recorded Time repair of femoral hernia completed [facility], Joanne 11/29/2022 10:48:22 Carpal tunnel surgery completed [facility], DelfinoLAneta 11/29/2022 10:48:33 Imaging Results None recorded. Procedure [...] BY MOUTH TWICE DAILY FOR 7 DAYS 11/25 /2024 completed Not Available Not Available Not Available [...] Updated DateTime 5 166.37 cm 25.4 kg/m2 47502.5 2 g 98 [degF] 64 /min 97 % 122/70 mm[Hg] Karen Carmona [facility] 5 17:15:50 Date Recorded Body height Body mass index (BMI) Body weight Body temperature Heart rate Oxygen saturation Systolic And Diastolic Provider Name and Address Organization Details Last Updated DateTime 5 166.37 cm 25.6 kg/m2 63135.4 1 g 97.9 [degF] 91 /min 98 % 128/68 mm[Hg] ALBERTINAlAaina ESPINOZA [facility] 5 12:35:03 Date Recorded Body height Body mass index (BMI) Body weight Heart rate Oxygen saturation Respiratory rate Body temperature Systolic And Diastolic Provider Name and Address Organization Details Last Updated DateTime 5 166.37 cm 26.1 kg/m2 37556.1 9 g 84 /min 97 % 18 /min 98 [degF] 128/86 mm[Hg] STEPHANIA DEGROOT [facility] 5 10:37:39 Date Recorded Body height Body mass index (BMI) Body weight Body temperature Oxygen saturation Heart rate Systolic And Diastolic Provider Name and Address Organization Details Last Updated DateTime 5 166.37 cm 26.1 kg/m2 43423.1 9 g 97.4 [degF] 95 % 78 /min 136/84 mm[Hg] ALBERTINA ESPINOZA [facility] 5 11:55:22 Social History Question Answer Notes LastModified by [employer] Details LastModified Time Tobacco Smoking Status Never Smoker ALBERTINAAlaina ESPINOZA [facility] 11/29/2022 10:47:51 What Was The Date Of Your Most Recent Tobacco Screening? 04/18/2025 [email or web address] Information not available 04/18/2025 Sex: Unknown Functional Status Question Answer Note LastModified by [employer] Details LastModified Time Do you use any illicit or recreational drugs? No [email or web address] Information not available 11/29/2022 Do you or have you ever used any other forms of tobacco or nicotine? No [email or web address] Information not available 04/30/2023 What is your level of alcohol consumption? None [email or web address] Information not available 11/29/2022 Do you or have you ever used any nicotine-free cigarettes, vape, or chewing tobacco? No [email or web address] Information not available 08/18/2024 Mental Status None recorded. Family History Relationship Description Onset Age of this Age Resolved Age Notes LastModified by Organization Details LastModified Time Mother Malignant neoplasm of colon [email or web address] Not available 11/29 10:46:53 Brother Autoimmune thyroiditis [email or web address] Not available 10:47:14 Brother Malignant neoplasm of colon [email or web address] Not available 11/29 10:49:54 Sister Autoimmune thyroiditis Not available 10:47:14 Sister Cardiomyopat hy Yamagu chi's Cardio myopat hy [email or web address] Not available 04/21/2025 12:27:31 Medical History No medical history recorded. Gynecological HistoryNo gynecological history recorded. Obstetrics History GPAL:G 0 P 0 0 0 0 Immunizations Vaccine Type Date Status Note Provider Nam e and Address Organization Details Recorded Time Influenza, recombinant, quadrivalent, PF 0 completed ALBERTINA abdullahi, [facility] 11/29/2022 10:45:32 Influenza, high-dose, quadrivalent, PF 2 completed ALBERTINA abdullahi, [facility] 11/29/2022 10:45:32 COVID-19, mRNA, LNP-S, PF, 100 mcg/0.5mL dose or 50 mcg/0.25mL dose 1 completed ALBERTINA abdullahi [facility] 11/29/2022 10:45:32 COVID-19, mRNA, LNP-S, PF, 100 mcg/0.5mL dose or 50 mcg/0.25mL dose 1 completed ALBERTINA abdullahi, [facility] 11/29/2022 10:45:32 COVID-19, mRNA, LNP-S, PF, 100 mcg/0.5mL dose or 50 mcg/0.25mL dose 2 completed ALBERTINA abdullahi [facility] 11/29/2022 10:45:32 COVID-19, mRNA, LNP-S, bivalent, PF, 50 mcg/0.5 mL or 25mcg/0.25 mL dose 2 completed ALBERTINA abdullahi, [facility] 11/29/2022 10:45:32 Tdap 7 completed ALBERTINA abdullahi, [facility] 11/29/2022 10:45:32 Pneumococcal conjugate PCV 13 0 completed ALBERTINA abdullahi, [facility] 11/29/2022 10:45:32 zoster recombinant 3 completed ALBERTINA abdullahi, [facility] 11/29/2022 14:01:35 Influenza, split virus, trivalent, preservative 8 completed Not Available [facility] 07/23/2023 14:09:00 zoster recombinant 3 completed Sim Trammell MD [address] [place] [address], [address], [facility] 03/20/2023 10:21:03 Past Encounters Encounter ID Performer Location Encounter Start Date Encounter Closed Date Diagnosis/Indication Diagnosis SNOMED-CT Code Diagnosis ICD10 Code Diagnosis IMO Codes Diagnosis Note [id number] Sim Trammell MD [facility] ([facility]) [address] [place] [id number] 10/16/2022 15:04:12 10/22/2022 10:15:42 Fall in home 28209040 Y92.009 Pain of left hand 777859 5424 07482 M79.642 [id number] Sim Trammell MD [facility] ([facility]) [address] [place] [id number] 5 11/29/2022 10:38:14 11/29/2022 14:36:02 Hypothyroidism 62525495 E03.9 Supraventr icular tachycardia 8019276 I47.1 Paroxysmal atrial fibrillation 470396014 I48.0 History of herpes zoster 2644140312 27385 Z86.19 [id number] Sim Trammell MD [facility] ([facility]) [address] [place] [id number] 5 03/12/2023 09:28:08 03/20/2023 21:37:19 Herpes zoster vaccination given 7638085181 26827 Z23 Hypothyroidism 87246323 E03.9 [id number] Jasiel Cortes MD [facility] ([facility]) [address] [place] [id number] 5 04/29/2023 11:44:50 04/29/2023 19:15:32 Bronchitis 46173270 J40 Patient is having persistent symptoms with recent fever. Recommend starting antibiotic s at this time. Discussed steroids but the patient would like to hold off on those for now. Write a prescripti on in case she has need of them. [id number] Sim Trammell MD [facility] ([facility]) [address] [place] [address] [id number] 5 04/30/2023 08:49:05 04/30/2023 09:49:25 Bleeding from nose 304211939 R04.0 we discussed supportive care with nasal saline and Vaselineav oid steroid nasal sprays and other irritantsa frin only to stop a bleed 2-4 sprays in the bleeding nostrilshu midify the home. [id number] Sim Trammell MD [facility] ([facility]) [address] [place] [address] [id number] 5 05/30/2023 11:48:26 05/30/2023 12:30:47 Acute upper respiratory infection 64961030 J06.9 f/u if fever breathing worsens or sx persist. Atrial fibrillation 4943 6004 I48.91 Hypothyroidism 58918674 E03.9 [id number] Sim Trammell MD [facility] ([facility]) [address] [place] [address] [id number] 5 07/23/2023 14:08:02 07/23/2023 18:23:53 Cough 81626406 R05.9 the grand kids have gone through 20 boxes of nasal tissues since . the grand kids have also been sick fever cough congestion runny nose etc. pocket script for amoxilsupp ortive care [id number] Sim Trammell MD [facility] ([facility]) [address] [place] [address] [id number] 5 10/02/2023 14:30:38 10/02/2023 15:25:56 Vertigo 318203447 R42 call tomorrow with progress [id number] Sim Trammell MD [facility] ([facility]) [address] [place] [address] [id number] 10/09/2023 13:20:13 10/10/2023 10:45:57 Rheumatoid arthritis 03804751 M06.041 Long-term drug therapy 446279004 Z79.498 [id number] Sim Trammell MD [facility] ([facility]) [address] [place] [address] [id number] 5 11/04/2023 12:56:16 11/04/2023 14:15:04 Hypothyroidism 18758601 E03.9 Rheumatoid arthritis 698 19151 M06.041 Paroxysmal atrial fibrillation 794539565 I48.0 i cannot find any interactio ns. i checked epocrates as well. i read studies showing methotrexa te may decrease risk of atrial fibrillati on. she will take her medication today and let me know how it goes. Nasal congestion 4733454 0 R09.81 [id number] Sim Trammell MD [facility] ([facility]) [address] [place] [address] [id number] 5 11/28/2023 12:30:26 11/29/2023 09:47:56 Hypothyroidism 76221078 E03.9 Rheumatoid arthritis 698 11367 M06.041 Long-term drug therapy 838130463 Z79.036 [id number] Sim Trammell MD [facility] ([facility]) [address] [place] [address] [id number] 5 12/02/2023 10:34:08 12/02/2023 13:12:04 Rheumatoid arthritis 08914279 M06.041 to refill meds used for poison michelle. Chronic hoarseness 52384 94565 105 R49.0 pepcid Hypothyroidism 64807538 E03.9 [id number] LAURENCE BENITEZ [facility] ([facility]) [address] [place] [address] [id number] 5 04/05/2024 16:16:36 04/05/2024 16:35:52 Acute pansinusitis 6830915 J01.40 will hold methotrexa te while on doxy this week.Discu ssed use of antibiotic . Take with food.May use Luis's nasal inserts and also apply on chest. Push oral fluids. Consider nasal saline rinses.Use tylenol/mo royal for camacho. [id number] LAURENCE BENITEZ [facility] ([facility]) [address] [place] [address] [id number] 5 04/10/2024 16:41:04 04/10/2024 17:29:00 Cough 26662063 R05.9 Finish doxy as prescribed . Start the prednisone prescribed today. May continue using otc meds. [id number] Sim Trammell MD [facility] ([facility]) [address] [place] [address] [id number] 5 05/11/2024 12:02:18 05/11/2024 12:48:13 Contact dermatitis caused by urushiol from [place] poison michelle 435480586 L25.5 [id number] Sim Trammell MD [facility] ([facility]) [address] [place], [place] 566475[address] 5 05/27/2024 15:37:52 05/28/2024 12:19:56 Rheumatoid arthritis 05025467 M06.041 to refill meds used for poison michelle. Long-term drug therapy 835243400 Z79.899 [facility] 34758650 E03.9 [id number] Sim Trammell MD [facility] ([facility]) [address] [place] [address] [id number] 5 06/02/2024 13:01:24 06/02/2024 15:36:29 Contact dermatitis caused by urushiol from [place] poison michelle 570083040 L25.5 [id number] Sim Trammell MD [facility] ([facility]) [address] [place] [address] [id number] 5 08/18/2024 11:53:01 08/19/2024 18:43:10 Hematoma of face 372200940 S00.83XA [id number] Sim Trammell MD [facility] ([facility]) [address] [place] [address] [id number] 5 08/26/2024 09:23:28 08/27/2024 06:58:06 Long-term drug therapy 857092468 Z79.565 [id number] Sim Trammell MD [facility] ([facility]) [address] [place] [address] [id number] 5 01/14/2025 09:55:05 01/15/2025 12:38:53 Long-term current use of drug therapy 340158930 Z79.702 9533187 [id number] LAURENCE ANAYA [facility] ([facility]) [address] [place] [address] [id number] 03/06/2025 17:07:06 03/09/2025 13:39:10 Acute upper respiratory infection 28234958 J06.9 2456 May use otc meds like zyrtec and fluticason e nasal spray as needed for symptoms. Return to clinic with any new or worsening symptoms. [id number] Sim Trammell MD [facility] ([facility]) [address] [place] [address] [id number] 5 03/24/2025 13:05:16 03/25/2025 09:34:12 Long-term current use of drug therapy 166352226 Z79.427 9084188 [id number] Sim Trammell MD [facility] ([facility]) [address] [place] [address] [id number] 5 03/25/2025 12:28:41 03/25/2025 13:01:48 Chronic kidney disease stage 3A 154638347 N18.31 67379253 added for historical accuracy not addressed today but is an active problem. Persistent cough 7743620 02 R05.3 735028 resume your allergy meds. has now had these sx's start early fall for 3 straight years. f/u if fever wheezing or symptoms worsening. [id number] DIANELYS AMOS APRN [facility] ([facility]) [address] [place] [address] [id number] 5 04/18/2025 10:22:36 04/18/2025 14:32:35 Neck pain 01716477 M54.2 18517 neck pressure [id number] Sim Trammell MD [facility] ([facility]) [address] [place] [address] 04/21/2025 11:46:15 04/26/2025 09:40:51 Pulmonary embolism 60782220 I26.99 9896522248 Paroxysmal atrial fibrillation 442318655 I48.0 Ablation was offered to her 30 years ago she says.i have long discussed and asked her to consider taking eliquis solely for the afib. given the unprovoked pe and paroxysmal afib she is a candidate for indefinite anticoagul ation. Aneurysm o f ascending aorta 652051320 I71.21 6989783307 Hiatal hernia 62429253 K 44.9 9218 Stenosis o f intervertebral foramina [id number] M48.02 [id number] Health Concerns Section Related Observation LastModified by Organization Detai ls LastModified Time None Recorded Concern Status LastModified by Organization Details LastModified Time None Recorded Advance Directives Directive None Recorded Payers Insurance Date Sequence Insurance Name Policy Number Policy Adam Covered Member ID Adam Member ID Guarantor Name 05/24/2025 1 [facility] ([facility]/A DVANTAGE - PPO) Colleen Longo [id number] Colleen Longo 03/25/2025 1 [facility] (MEDICARE REPLACEMENT/A DVANTAGE - PPO) [id number] Colleen Longo [id number] Colleen Longo Notes Date Note Type Note [...] infection once an hour. LAURENCE ANAYA [address] [place], [id number], [facility], Joanne 03/06/2025 17:42:58 03/25/20 25 text/htm l [...] days ago. ROS as noted in the [facility] Sim Trammell MD [address] [place] [address], [phone], [facility] 03/25/2025 12:57:38 04/18/20 25 text/htm l walk-inPatient stated that yesterday around 4pm she started having pressure in her anterior neck, denies injury. Pressure is increased when she bends forward. Pain in her ears DIANELYS AMOS APRN [address] [place] [address], [phone], [facility] 04/18/2025 11:18:24 04/21/20 25 text/htm l Atrial FibrillationReported by PatientHPIFor duration, patient reportshas [...] a very sore spot on her left mormonism area and has spread into the left ear today and is causing an ear ache. She has now been off of her methotrexate for [address] Dalton said that as soon as she is done with her ABX, she will get to start the methotrexate again. ROS as noted in the [facility] hospital f/u: Pulmonary embolism, atrial fibrillation Sim Trammell MD [address] [place] [address], [phone], [facility], Joanne 04/21/2025 12:44:31 OBGyn Episode No OBEpisode recorded.
[2025-05-27 20:23] LABS: Partial Thromboplastin Time 38.9 SECONDS (23.9-36.7)
[2025-05-27 20:26] LABS: Troponin(5th) Baseline 8 ng/L (0-10)
--- NOTE | 2025-05-27 20:27 | W.ED.ARRPALP ---
HPI - Arrhythmia/Palpitations General: Chief Complaint: Arrhythmia/Palpitations Stated Complaint: odd heartbeat previous lung embolism feels same Time Seen by Provider: 05/27/25 19:35 History of Present Illness: Patient is a 74-year-old female with history of A-fib on Eliquis, flecainide, metoprolol low-dose, presents to the emergency room with palpitations. This has been on and off for the last 3 days. Worse today. Associated symptoms: Shortness of breath. No nausea, no diaphoresis, no chest pain. She feels that her heart is irregular. Associated symptoms: Deny anxiety, nausea, pre-syncope, syncope or vomiting Related Data Home Medications ?Medication ?Instructions ?Recorded ?Confirmed flecainide 50 mg tablet 50 mg PO Q12H 12/17/19 04/18/25 tacrolimus 0.1 % topical ointment 1 applic topical .2XWEEKLY 01/11/20 04/18/25 cholecalciferol (vitamin D3) 25 50 mcg PO DAILY 04/19/20 04/18/25 mcg (1,000 unit) capsule aspirin 81 mg tablet,delayed 81 mg PO DAILY 09/26/21 04/18/25 release (Adult Aspirin Regimen) clobetasol 0.05 % topical ointment 1 applic topical .2XWEEKLY 04/18/25 04/18/25 cyanocobalamin (vitamin B-12) 1,000 mcg PO DAILY 04/18/25 04/18/25 1,000 mcg tablet (Vitamin B-12) levothyroxine 150 mcg tablet 150 mcg PO QAM 04/18/25 04/18/25 Previous Rx's ?Medication ?Instructions ?Recorded estradiol 0.01% (0.1 mg/gram) 1 g vaginal .COMPLEX #42.5 grams 09/24/22 vaginal cream folic acid 1 mg tablet 1 mg PO DAILY #90 tabs 09/28/24 methotrexate sodium 2.5 mg tablet See Rx Instructions PO .week 02/02/25 Rheumatoid Arthritis #150 tabs prednisone 10 mg tablet See Rx Instructions PO DAILY joint 02/02/25 pain #30 tabs apixaban 5 mg tablet (Eliquis) 5 mg PO BID #60 tabs 04/19/25 metoprolol succinate 25 mg 25 mg PO BID #60 tabs 04/19/25 tablet,extended release 24 hr Allergies Allergy/AdvReac Type Severity Reaction Status Date / Time No Known Allergies Allergy Verified 05/27/25 19:44 Review of Systems General: Reports: 10 or more systems reviewed and unremarkable except in HPI and below Const: Denies: fever(s), chills, body aches, fatigue or malaise Eyes: Denies: change in vision or blurry vision Card: Reports: palpitations and irregular heart rhythm; Denies: chest pain, edema, swelling of feet/ankles, lightheadedness, syncope, pre-syncope, dyspnea on exertion, orthopnea, leg pain with exertion or acrocyanosis Resp: Reports: pain on inspiration; Denies: dyspnea, productive cough, non-productive cough, wheezing, stridor, change in phlegm color, hemoptysis or chest congestion GI: Denies: abdominal pain, nausea, vomiting, heartburn or diarrhea : Denies: flank pain or dysuria Musc: Denies: neck pain, back pain, extremity pain, extremity swelling, joint pain, joint swelling, joint redness, joint warmth or joint stiffness Skin/Breast: Denies: rash Neuro: Denies: headache(s), numbness in extremities, weakness in extremities, sensory changes or dizziness Psych: Denies: anxiety or depression PFSH ED PFSH: Medical History (Updated 05/27/25 @ 21:24 by CORINA Wilks) Paroxysmal A-fib Postmenopausal Tachycardia Erosive osteoarthritis of both hands Immunization counseling Herpes zoster ophthalmicus resolved History of basal cell carcinoma Osteoarthritis, generalized Hypothyroidism Immunization counseling Seronegative rheumatoid arthritis of both hands High risk medication use Rheumatoid arthritis Surgical History No pertinent past surgical history Family History Other Arthritis Cancer Denies family history of Rheumatoid arthritis Diabetes Lupus Lung disease Stroke Social History (Updated 04/18/25 @ 14:54 by Sudhir Moyer MD) Smoking and tobacco/nicotine status: never used tobacco/nicotine Alcohol intake: never Substance/Drug Use: never Additional social history: 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 We discussed this with Sudhir Moyer MD on 04/18/2025 Marital status: Physical Exam Const: COMMON NORMALS: no acute distress, average body habitus, patient oriented x3, no limitations, healthy appearing, alert and well nourished GENERAL APPEARANCE: cooperative ORIENTATION/CONSCIOUSNESS: Yes awake, Yes oriented to person, Yes oriented to place and Yes oriented to time HENMT: COMMON NORMALS: normocephalic and atraumatic HEAD & SCALP: normal to inspection, normocephalic and atraumatic FACE & SINUS: normal facial exam and face symmetric MOUTH: moist mucous membranes abnormal Neck/C-Spine: COMMON NORMALS: full ROM, no lymphadenopathy, supple, no meningeal signs, no JVD, Thyroid normal and No carotid bruits THYROID: Thyroid normal Chest: COMMONS NORMALS: normal inspection of the chest and normal palpation of entire chest wall Resp: COMMON NORMALS: normal respiratory effort and clear to auscultation bilaterally AUSCULTATION: clear to auscultation bilaterally Cardio: COMMON NORMALS: no JVD, regular rate and regular rhythm RATE: regular rate RHYTHM: regular rhythm GI: COMMON NORMALS: Normal to inspection, nondistended, normoactive bowel sounds present, Soft to palpation, non-tender, No hepatosplenomegaly present and no masses PALPATION: Yes Soft to palpation and Yes No hepatosplenomegaly present : COMMON NORMALS: Yes no CVA tenderness BLADDER/KIDNEY EXAM: Yes no CVA tenderness Back/Pelvis: COMMON NORMALS: no CVA tenderness and thoracic and lumbar spine normal to inspection Extremity: COMMON NORMALS: normal to inspection, full ROM, capillary refill normal, no joint enlargement, no clubbing, cyanosis or edema, no calf tenderness and no pedal edema GENERAL: Yes normal exam except as noted Neuro: DORIAN COMA SCALE: document GCS findings Dorian coma scale eye opening: Spontaneous Opp coma scale verbal response: Orientated Opp coma scale motor response: Obey commands Dorian coma scale total score: 15 COMMON NORMALS: patient oriented x3, CN's II-XII intact bilaterally, moves all extremities, no focal motor deficits, no sensory deficits noted and gait normal SENSORIUM/ORIENTATION: Yes alert, Yes oriented to person, Yes oriented to place and Yes oriented to time MENINGEAL SIGNS: Yes no meningeal signs SPEECH: speech normal GAIT: Yes Normal gait present MOTOR EXAM: 10/19 motor strength present throughout Skin: COMMON NORMALS: no rashes or lesions noted GENERAL SKIN EXAM: no rashes or lesions noted Course Reevaluation(s): Reevaluation #1: - On reevaluation: Patient was doing better, and heart rate was staying in the 90s. Her blood pressure unfortunately decreased, and 500 mL bolus was given just prior to what was going to be her metoprolol administration. Since the fluids were given, this resolved her symptoms. Had a candid discussion regarding hypovolemia with patient and its association. Patient states understanding. We were able to cancel all the metoprolol doses. Patient will resume her home medications. Vital Signs: Vital signs: Vital Signs Temperature 99.0 F 05/27/25 19:39 Pulse Rate 92 05/27/25 21:15 Respiratory Rate 20 H 05/27/25 21:15 Blood Pressure 104/66 05/27/25 21:15 Pulse Oximetry 93 05/27/25 21:15 Oxygen Delivery Me thod Room Air 05/27/25 19:39 MDM - Arrhythmia/Palpitations Medical Decision Making Patient is a pleasant 74-year-old female with history of atrial fibrillation and pulmonary embolism that reports compliance to her Eliquis, flecainide, metoprolol. Today, she took her flecainide 1 hour early at 5 PM. She has had the symptoms on and off, however worse today for the last 3 days. She has not yet talked to her victims advocate clerk/specialist. She was trying to put this off she admits. She now realizes how important it is to seek help when she has issues. She also took her metoprolol prior to arrival. As noted on her reevaluation, she actually did not end up using any metoprolol here. She was consistently 110?130s on my initial evaluation, and when her blood pressure became soft, 500 mL liter bolus was added while waiting to give the metoprolol. Instead, a bolus fix the underlying issue. On physical examination, she did have slightly dry tongue, which I pointed out to her prior to her blood pressure being soft. She does have some lightheadedness, and dizziness upon standing, which I have discussed with the patient that this is feedback to know that she needs to drink some more fluid. Her telemetry has showed a consistent sinus rhythm, normal sinus rhythm at 80s?90s since this time. Metoprolol was discontinued, and patient is advised to reevaluate with victims advocate clerk/specialist. Lab Data I reviewed the patient's lab results. 05/27/25 19:45 05/27/25 19:45 Laboratory Results WBC 9.97 10^3/uL (3.29-11.43) 05/27/25 19:45 RBC 4.40 10^6/uL (3.85-5.65) 05/27/25 19:45 Hgb 12.80 g/dL (11.27-16.99) 05/27/25 19:45 Hct 39.3 % (36-47) 05/27/25 19:45 MCV 89.3 fl (85-98) 05/27/25 19:45 MCH 29.1 pg (27-33) 05/27/25 19:45 MCHC 32.6 g/dL (30-55) 05/27/25 19:45 RDW 13.2 % (12.1-15.1) 05/27/25 19:45 Plt Count 304 10^3/cmm (157-399) 05/27/25 19:45 MPV 9.1 fL (7.4-10.4) 05/27/25 19:45 Neut % (Auto) 71.5 % 05/27/25 19:45 Lymph % (Auto) 17.4 % 05/27/25 19:45 Delta % (Auto) 9.3 % 05/27/25 19:45 Eos % (Auto) 0.9 % 05/27/25 19:45 Baso % (Auto) 0.5 % 05/27/25 19:45 Neut # (Auto) 7.13 10^3/uL (1.8-7.7) 05/27/25 19:45 Lymph # (Auto) 1.7 10^3/uL (0.8-4.8) 05/27/25 19:45 Delta # (Auto) 0.9 10^3/uL (0.2-0.9) 05/27/25 19:45 Eos # (Auto) 0.1 10^3/uL (0.0-0.8) 05/27/25 19:45 Baso # (Auto) 0.1 10^3/uL (0.0-0.1) 05/27/25 19:45 Nucleated RBC % (auto) 0 % 05/27/25 19:45 Nucleated RBCs # 0.0 /100WBC 05/27/25 19:45 APTT 38.9 SECONDS (23.9-36.7) H 05/27/25 19:45 D-Dimer 2.23 ug/mLFEU (0-0.59) H 05/27/25 19:45 Sodium 134 mmol/L (136-145) L 05/27/25 19:45 Potassium 4.1 mmol/L (3.5-5.1) 05/27/25 19:45 Chloride 97 mmol/L (98-107) L 05/27/25 19:45 Carbon Dioxide 24 mmol/L (22-29) 05/27/25 19:45 Anion Gap 17.1 (5-19) 05/27/25 19:45 BUN 14 mg/dL (8-23) 05/27/25 19:45 Creatinine 0.9 mg/dL (0.5-0.9) 05/27/25 19:45 GFR Calculation Not Reportable 05/27/25 19:45 Glucose 129 mg/dL (65-115) H 05/27/25 19:45 Calculated Osmolality 280 mOsm/kg (285-295) L 05/27/25 19:45 Calcium 8.4 mg/dL (8.5-10.5) L 05/27/25 19:45 Magnesium 2.0 mg/dL (1.7-2.3) 05/27/25 19:45 Total Bilirubin 0.9 mg/dL (0.15-1.2) 05/27/25 19:45 AST 15 U/L (0-32) 05/27/25 19:45 ALT 15 U/L (0-33) 05/27/25 19:45 Alkaline Phosphatase 71 U/L (35-105) 05/27/25 19:45 Troponin T Baseline 8 ng/L (0-10) 05/27/25 19:45 NT-Pro-B Natriuret Pep 647 pg/mL (0-125) H 05/27/25 19:45 Total Protein 6.2 g/dL (6.6-8.7) L 05/27/25 19:45 Albumin 3.6 g/dL (3.5-5.2) 05/27/25 19:45 Globulin 2.6 g/dL (1.3-4.6) 05/27/25 19:45 TSH 3.87 uIU/mL (0.27-4.20) 05/27/25 19:45 All radiology interpretation(s) finalized by discharge EKG Data EKG 1: Interpretation: A-fib RVR rate of 113 QTc 425 Discharge Plan Discharge Patient Disposition: Home Clinical Impression: Atrial fibrillation with RVR, Hypovolemia Condition: Stable Prescriptions: No Action aspirin [Adult Aspirin Regimen] 81 mg tablet,delayed release (DR/EC) 81 mg PO DAILY flecainide 50 mg tablet 50 mg PO Q12H cholecalciferol (vitamin D3) 25 mcg (1,000 unit) capsule 50 mcg PO DAILY tacrolimus 0.1 % ointment 1 applic TOPICAL .2XWEEKLY estradiol 0.01 % (0.1 mg/gram) cream 1 g VAGINAL .COMPLEX Qty: 42.5 4RF Rx Instructions: insert 1 g vaginal twice weekly folic acid 1 mg tablet 1 mg PO DAILY Qty: 90 1RF methotrexate sodium 2.5 mg tablet See Rx Instructions PO .week Qty: 150 0RF Rx Instructions: Split dose.. take 10 tabs on the same day once a week, take 5 tabs in the AM and 5 tabs in the PM prednisone 10 mg tablet See Rx Instructions PO DAILY Qty: 30 1RF Rx Instructions: Take 1 tablet by mouth daily for 5-7 days as needed for joint pain flare. cyanocobalamin (vitamin B-12) [Vitamin B-12] 1,000 mcg Tablet 1,000 mcg PO DAILY levothyroxine 150 mcg tablet 150 mcg PO QAM clobetasol 0.05 % ointment 1 applic TOPICAL .2XWEEKLY Eliquis 5 mg tablet 5 mg PO BID Qty: 60 0RF Rx Instructions: 10 mg BID for 1 week f/b 5 mg bid metoprolol succinate 25 mg tablet extended release 24 hr 25 mg PO BID Qty: 60 0RF Discharge Orders: Discharge ED (Routine); Ordered 05/27/25 Ordered By: Magui Elizabeth Referrals: Rustam Trammell MD [Primary Care Provider, Family Practice] Discharge Diet: Low Salt Patient Instructions: Dehydration (ED), Patient Portal & Krystina Instructions Activity Restrictions/Additional Instructions: - Call your doctor in the morning to have a plan of attack in case this happens again. Typically a lot of victims advocate clerk/specialist recommend taking 2 flecainide at once. Do not do this based on my concerns, check with your victims advocate clerk/specialist and see what he prefers, such as taking to metoprolol might be another example. - As we discussed, the reason this turned out the way it did, was due to dehydration. Since this is associated with dehydration, I would recommend scheduling a fluid intake of noncaffeinated beverages throughout the day. I would also recommend a log on your A-fib. This will give you appropriate feedback to help with the underlying concern - It was great to meet you today Mrs. Longo, additional workups were without any concern. Take care of yourself Thank you for choosing [facility] for your healthcare needs today. You have been screened and evaluated and felt safe for discharge. Health conditions do change or evolve sometimes and as such it is important that you follow up with your Primary Doctor to be re checked, 3-5 days is a general good time frame for follow up. You are always welcome to return to the ED for re assessment if your symptoms are worsening or you have new concerns Print Language: Cypriot Coding Level of Care Code ED Seo Manager for Julienne Eli
[2025-05-27 20:32] LABS: Alanine Aminotransferase 15 U/L (0-33); Albumin Level 3.6 g/dL (3.5-5.2); Alkaline Phosphatase 71 U/L (35-105); Anion Gap 17.1 (5-19); Aspartate Amino Transferase 15 U/L (0-32); Blood Urea Nitrogen 14 mg/dL (8-23); Calcium 8.4 mg/dL (8.5-10.5); Carbon Dioxide 24 mmol/L (22-29); Chloride 97 mmol/L (98-107); Globulin 2.6 g/dL (1.3-4.6); Glucose 129 mg/dL (65-115); Magnesium 2.0 mg/dL (1.7-2.3); NT Pro B Type Natriuretic Pept 647 pg/mL (0-125); Osmolality Calculated 280 mOsm/kg (285-295); Potassium 4.1 mmol/L (3.5-5.1); Sodium 134 mmol/L (136-145); Thyroid Stimulating Hormone 3.87 uIU/mL (0.27-4.20); Total Protein 6.2 g/dL (6.6-8.7)
--- NOTE | 2025-05-27 21:18 | PC.NURSE ---
VERBAL ORDER FROM ER PROVIDER TO NOT GIVE METOPROLOL DUE TO PATIENT HR BEING IN 90S AND REGULAR RATE.
== END 2025-05-27 21:38 | disposition home or self-care (01) ==
PROVIDERS: Emergency Provider Physician Assistant; PCP Family Medicine
DX: I48.20 Chronic atrial fibrillation, unspecified (principal); E86.1 Hypovolemia; Z79.82 Long term (current) use of aspirin; Z79.01 Long term (current) use of anticoagulants
CPT/HCPCS: 80053; 83735; 83880; 84443; 84484; 85025; 85378; 85730; 93005; 99284; J7040